=== PATIENT | male | born 1940 | race Hispanic/Latino ===

== ENCOUNTER 2018-03-26 08:19 | Inpatient (IN) | payer MEDICARE, BC ==
[2018-03-26 08:22] VITALS: BMI 22.1
--- NOTE | 2018-03-26 09:08 | ED PDOC ---
Arrival/HPI - General Chief Complaint: Trauma Time Seen by Provider: 03/26/18 09:02 Historian: Patient, Family - History of Present Illness Narrative History of Present Illness (Text): 03/26/18 09:15 Patient is a 77 year old male whose past medical history includes a 10 year history of Parkinson disease, CAD, coronary stent placementx3, and orthostatic hypotension, who presents to the Emergency department with right hip and back pain due to falling last night at 00:00. Patient is present with his granddaughter. Prior to last nights fall he also fell in his kitchen on on his head and causing pain in his right elbow. His family reports that he fell approximately 20 times over the last month. Patient previously took Sinemet and Amantadine, the dosages of which have recently been changed due to poor tolerance of side effects. Patient denies nausea or vomiting at this time. Neurologist: Time/Duration: Other (Last night approximately at midnight) Symptom Course: Unchanged Context: Walking, Home Past Medical History - Provider Review Nursing Documentation Reviewed: Yes - Infectious Disease Hx of Infectious Diseases: None - Tetanus Immunization Tetanus Immunization: Unknown - Cardiac Hx Cardiac Disorders: (hypotension) Hx Congestive Heart Failure: Yes (x3) - Pulmonary Hx Bronchitis: Yes - Neurological Hx Parkinson's Disease: Yes (hands shake) - HEENT Hx HEENT Disorder: (wears eyeglasses) - Hematological/Oncological Hx Blood Transfusions: No Hx Blood Transfusion Reaction: No - Musculoskeletal/Rheumatological Hx Falls: No - Gastrointestinal Hx Gastroesophageal Reflux: Yes - Genitourinary/Gynecological Hx Hematuria: Yes Hx Prostate Problems: Yes (enlarged) Other/Comment: had cysto - Psychiatric Hx Anxiety: Yes Hx Substance Use: No - Surgical History Hx Cardiac Catheterization: Yes (01/2015) Hx Cholecystectomy: Yes Other/Comment: repair of aaa 06/19/2016 - Anesthesia Hx Anesthesia Reactions: No Hx Malignant Hyperthermia: No - Suicidal Assessment Feels Threatened In Home Enviroment: No Family/Social History - Physician Review Nursing Documentation Reviewed: Yes Family/Social History: No Known Family HX Smoking Status: Former Smoker Hx Alcohol Use: No Hx Substance Use: No Hx Substance Use Treatment: No Allergies/Home Meds Allergies/Adverse Reactions: Allergies codeine Allergy (Severe, Verified 02/04/17 15:32) DIFF BREATHING/ SWELLING OF EYES omeprazole [From Prilosec] Allergy (Severe, Verified 02/04/17 15:32) ANAPHYLAXIS omeprazole magnesium [From Prilosec] Allergy (Severe, Verified 02/04/17 15:32) ANAPHYLAXIS Home Medications: Home Meds Medication Instructions Recorded Confirmed Aspirin [Aspirin EC] 81 mg PO QAM 06/12/16 02/04/17 Carbidopa/Levodopa [Sinemet Cr 1 each PO 5XD 06/12/16 02/04/17 25-100 Tablet] Lorazepam [Ativan] 2 mg PO HS 06/12/16 02/04/17 Metoprolol Tartrate 25 mg PO BID 06/12/16 02/04/17 Rabeprazole Sodium [Aciphex] 20 mg PO BID 06/12/16 02/04/17 Review of Systems - Physician Review All systems were reviewed & negative as marked: Yes - Review of Systems Constitutional: absent: Fevers Musculoskeletal: Back Pain Physical Exam - Physical Exam Narrative Physical Exam (Text): 03/26/18 09:08 Constitutional: No acute distress. Head: Normocephalic. Atraumatic. Eyes: PERRL. ENT: Moist mucous membranes. Neck: Supple. Cardiovascular: Regular rate. Chest: No tenderness. Respiratory: Clear to auscultation bilaterally. GI: Soft. Nontender. Nondistended. Back: No CVA tenderness. Musculoskeletal: No tenderness or swelling of extremities. right elbow hematoma Skin: No rash. Neurologic: Alert, no focal deficit.positive cogwheel rigidity, resting tremor. Vital Signs Temp Pulse Resp BP Pulse Ox 03/26/18 10:05 63 16 111/66 95 03/26/18 08:19 98.7 F 60 18 107/69 95 Temperature: Afebrile Blood Pressure: Normal Pulse: Regular Respiratory Rate: Normal Appearance: Positive for: Well-Appearing Mental Status: Positive for: Alert and Oriented X 3 Medical Decision Making ED Course and Treatment: 03/26/18 09:08 Impression: Patient is a 77 year old male who fell yesterday. Differential Diagnosis included but are not limited to: Contusion vs. Fracture. Plan: ----Tylenol --hip/pelvis X-ray --elbow X-ray -- Reassess and disposition Prior Visits: Notes and results from previous visits were reviewed. Progress Notes: Dictator : Garrett Quintero MD Oncology Physician Assistant : Dry Cleaning Attendant : Garrett Quintero MD Approver2 : Report Date : 03/26/2018 10:56:59 My Comment : PROCEDURE: Right Hip and pelvis Radiographs. HISTORY: fall COMPARISON: None. FINDINGS: BONES: Normal. No fracture. JOINTS: Normal. SOFT TISSUES: Normal. OTHER FINDINGS: None. IMPRESSION: Negative study Creator : Garrett Quintero MD Dictator : Garrett Quintero MD Dry Cleaning Attendant : Garrett Quintero MD Report Date : 03/26/2018 10:56:24 My Comment : PROCEDURE: Radiographs of the right elbow. HISTORY: fall COMPARISON: No prior. FINDINGS: BONES: Normal. No fracture. JOINTS: Normal. No osteoarthritis. SOFT TISSUES: Normal. JOINT EFFUSION: None. OTHER FINDINGS: None. IMPRESSION: Unremarkable radiographs of the right elbow. Creator : Garrett Quintero MD Dry Cleaning Attendant : Garrett Quintero MD Report Date : 03/26/2018 11:52:40 My Comment : HISTORY: frequent falls COMPARISON: 02/10/2015 FINDINGS: LUNGS: There is a patchy chronic infiltrate in the left lower lobe PLEURA: No significant pleural effusion identified, no pneumothorax apparent. CARDIOVASCULAR: Normal. OSSEOUS STRUCTURES: No significant abnormalities. VISUALIZED UPPER ABDOMEN: Normal. OTHER FINDINGS: None. IMPRESSION: Patchy chronic infiltrate in the left lower lobe 03/26/18 10:[address] Chambers, who is aware and recommended patient be admitted to his PMD and evaluated by PT and likely short term rehab as patient is unable to ambulate, is unsafe to be discharged home. 03/26/18 12:10 Case discussed with , who is aware and agrees with the plan to admit patient to his service. - Lab Interpretations Lab Results: 03/26/18 11:20 03/26/18 11:20 Lab Results 03/26/18 11:20: Sodium 140, Potassium 4.5, Chloride 106, Carbon Dioxide 29, Anion Gap 10, BUN 39 H, Creatinine 1.3, Est GFR ( Amer) > 60, Est GFR ( Non-Af Amer) 53, Random Glucose 98, Calcium 9.0, Total Bilirubin 0.5, AST 29, ALT 34, Alkaline Phosphatase 101, Total Protein 7.2, Albumin 3.6, Globulin 3.6, Albumin/Globulin Ratio 1.0 L 03/26/18 11:20: WBC 9.0 D, RBC 4.02, Hgb 11.9 L, Hct 36.7 L, MCV 91.3, MCH 29.6 , MCHC 32.4, RDW 14.6 H, Plt Count 217, MPV 9.9, Gran % 69.9 H, Lymph % (Auto) 18.2 L, [place] % (Auto) 10.5 H, Eos % (Auto) 1.1 L, Baso % (Auto) 0.3, Gran # 6.30 , Lymph # (Auto) 1.6, [place] # (Auto) 1.0 H, Eos # (Auto) 0.1, Baso # (Auto) 0.03 - RAD Interpretation Radiology Orders: 03/26/18 09:02 ELBOW RIGHT 3 VIEWS ROUTINE [RAD] Stat HIP MIN 2V W/ PELVIS RT [RAD] Stat 03/26/18 11:07 CHEST PORTABLE [RAD] Stat Finisher Denture: Radiologist - Medication Orders Current Medication Orders: Aspirin (Aspirin Chewable) 81 mg PO DAILY BEE Carbidopa/Levodopa (Sinemet) 1 tab PO 5XD BEE Pantoprazole Sodium (Protonix Ec Tab) 40 mg PO DAILY BEE Discontinued Medications Acetaminophen (Tylenol 325mg Tab) 650 mg PO STAT STA Stop: 03/26/18 09:05 Last Admin: 03/26/18 09:14 Dose: 650 mg MAR Pain/Vitals Document 03/26/18 09:14 SRE (Rec: 03/26/18 09:14 SRE [id number]) Pain Reassessment Is This A Pain ReAssessment? Yes Sleep Is patient sleeping during reassessment? No Presence of Pain Presence of Pain Yes Pain Scale Used Pain Scale Used Numeric Location Pain Location Body Site Back - Scribe Statement The provider has reviewed the documentation as recorded by the Joseluisiblinn Bueno Provider Scribe Attestation: All medical record entries made by the Scribe were at my direction and personally dictated by me. I have reviewed the chart and agree that the record accurately reflects my personal performance of the history, physical exam, medical decision making, and the department course for this patient. I have also personally directed, reviewed, and agree with the discharge instructions and disposition. Disposition/Present on Arrival - Present on Arrival Any Indicators Present on Arrival: No History of DVT/PE: No History of Uncontrolled Diabetes: No Urinary Catheter: No History of Decub. Ulcer: No History Surgical Site Infection Following: None - Disposition Have Diagnosis and Disposition been Completed?: Yes Diagnosis: Decreased ambulation status, Parkinson disease Disposition: HOSPITALIZED Disposition Time: 10:59 Patient Plan: Observation Condition: FAIR
--- NOTE | 2018-03-26 10:58 | RAD ---
PROCEDURE: Radiographs of the right elbow. HISTORY: fall COMPARISON: No prior. FINDINGS: BONES: Normal. No fracture. JOINTS: Normal. No osteoarthritis. SOFT TISSUES: Normal. JOINT EFFUSION: None. OTHER FINDINGS: None. IMPRESSION: Unremarkable radiographs of the right elbow.
--- NOTE | 2018-03-26 10:58 | RAD ---
PROCEDURE: Right Hip and pelvis Radiographs. HISTORY: fall COMPARISON: None. FINDINGS: BONES: Normal. No fracture. JOINTS: Normal. SOFT TISSUES: Normal. OTHER FINDINGS: None. IMPRESSION: Negative study
[2018-03-26 11:32] LABS: BASO # 0.03 K/mm3 (0.0-2.0); BASO % 0.3 % (0.0-3.0); EOS # 0.1 (0.0-0.7); EOS % 1.1 % (1.5-5.0); GRAN # 6.3 (1.4-6.5); GRAN % 69.9 % (50.0-68.0); HEMOGLOBIN 11.9 g/dL (14.0-18.0); LYMPH # 1.6 (1.2-3.4); LYMPH % 18.2 % (22.0-35.0); MEAN CELL VOLUME 91.3 fl (80.0-105.0); MEAN CORPUSCULAR HEMOGLOBIN 29.6 pg (25.0-35.0); MEAN CORPUSCULAR HGB CONC 32.4 g/dl (31.0-37.0); MEAN PLATELET VOLUME 9.9 fl (7.0-11.0); MONO % 10.5 % (1.0-6.0); RBC 4.02 10^6/uL (3.5-6.1); RED CELL DISTRIBUTION WIDTH 14.6 % (11.5-14.5)
[2018-03-26 11:40] LABS: ALBUMIN 3.6 g/dL (3.0-4.8); ALT/SGPT 34 U/L (7-56); AST/SGOT 29 U/L (17-59); BLOOD UREA NITROGEN 39 mg/dL (7-21); GFR AFRICAN-AMERICAN > 60; GFR NON-AFRICAN AMERICAN 53
--- NOTE | 2018-03-26 11:54 | RAD ---
HISTORY: frequent falls COMPARISON: 02/10/2015 FINDINGS: LUNGS: There is a patchy chronic infiltrate in the left lower lobe PLEURA: No significant pleural effusion identified, no pneumothorax apparent. CARDIOVASCULAR: Normal. OSSEOUS STRUCTURES: No significant abnormalities. VISUALIZED UPPER ABDOMEN: Normal. OTHER FINDINGS: None. IMPRESSION: Patchy chronic infiltrate in the left lower lobe
--- NOTE | 2018-03-26 16:38 | HP ---
HISTORY OF PRESENT ILLNESS: The patient is a 77 year old man with a past medical history of advanced Parkinson disease who was brought to [facility] for evaluation of recurrent mechanical falls. The patient has been clinically deteriorating due to his underlying Parkinson disease and has been experiencing more frequent falls at home. As such he was brought to the ED for PT evaluation and possible placement. Upon arrival to the ED he was found to be afebrile and hemodynamically stable. X-rays of the pelvis and elbow demonstrated no fracture or dislocation and the patient was subsequently admitted to the general medical [facility] for PT evaluation. PAST MEDICAL HISTORY: As per HPI, also CAD s/p PCI with stent placement, lumbosacral radiculopathy secondary to spinal stenosis, AAA, anxiety disorder and BPH. PAST SURGICAL HISTORY: Cholecystectomy, AAA repair and lumbosacral spinal surgery with hardware placement. ALLERGIES: Codein and Omeprazole. MEDICATIONS: Aspirin 81 mg p.o. daily, Metoprolol 25 mg p.o. b.i.d., Aciphex 20 mg p.o. daily , Ativan 1 mg p.o. at bedtime and Sinemet 25/100 mg five times per day. FAMILY HISTORY: Noncontributory. SOCIAL HISTORY: The patient reports a former 24-erta-cpwr smoking history but quit four years ago. He denies alcohol use or illicit drug abuse. REVIEW OF SYSTEMS: A 14-point review of systems is negative except as per HPI. PHYSICAL EXAMINATION: VITAL SIGNS: Temperature 98.7, pulse 63, blood pressure 111/66, respiratory rate 16, oxygen saturation 95% on room air. GENERAL: No apparent distress. HEENT: Normocephalic, atraumatic. PERRL. EOMI. No scleral icterus. No conjunctival pallor. Mucous membranes are dry. NECK: No JVD. LUNGS: Clear to auscultation. CARDIOVASCULAR: Regular rate and rhythm. Normal S1 and S2. ABDOMEN: Normoactive bowel sounds. Soft, nontender, nondistended. EXTREMITIES: No edema. No joint deformities. Full range of motion. NEUROLOGIC: Awake, alert, and oriented x 3. No focal motor deficits. LABORATORY DATA: CBC reviewed and unremarkable. CMP reviewed and unremarkable. IMAGING STUDIES: 1. Chest x-ray demonstrates a chronic patchy infiltrate to the left lower lobe. 2. X-ray of the right hip demonstrates no evidence of fracture or dislocation. 3. X-ray of the right elbow demonstrates no acute pathology. ASSESSMENT: The patient is a 77 year old man with a past medical history of advanced Parkinson disease who presented s/p mechanical fall and who was admitted for PT evaluation given multiple recurrent falls at home and possible placement. PLAN: 1. Parkinson disease. We will resume the patient's Sinemet and Amantadine. PT has been consulted for further evaluation and recommendations. Continue with fall precautions. 2. CAD s/p PCI with stent placement. Resume Aspirin 81 mg p.o. daily. We will hold Metoprolol given the patient's borderline low blood pressure in the setting of recurrent falls. 3. BPH. 4. GERD. 5. Anxiety. 6. Lumbosacral radiculopathy secondary to spinal stenosis. 7. Prophylaxis. GI prophylaxis not indicated as patient is eating. We will start Venodynes for DVT prophylaxis. CODE STATUS: Full code. Torey Lucero MD [facility]
[2018-03-26] MEDS ORDERED: Magnesium Citrate Oral SOL (300 ml) PO ONE (16:57)
--- NOTE | 2018-03-26 19:11 | CARD ---
APPROVED REPORT EKG Measurement Heart [id number] <Conclusion> Normal sinus rhythm Left axis deviation Inferior infarct, age undetermined Abnormal ECG
[2018-03-26] MEDS ORDERED: Pneumococcal 23-Valent Vaccine IM ONE (19:17)
[2018-03-27] MEDS ORDERED: Pantoprazole 40 mg EC Tab PO SCH (10:00)
[2018-03-27] MEDS: Pantoprazole 40 mg EC Tab PO SCH (10:11)
--- NOTE | 2018-03-27 10:20 | PN ---
SUBJECTIVE: The patient was seen and examined at bedside on the general medical [facility]. No acute events overnight. He remains afebrile, hemodynamically stable and is pending PT evaluation for his presentation with recurrent mechanical falls. PHYSICAL EXAMINATION VITAL SIGNS: Temperature 98, pulse 75, blood pressure 136/90, respiratory rate 23, oxygen saturation 96% on room air. GENERAL: No apparent distress. HEENT: PERRL, EOMI. No scleral icterus. No conjunctival pallor. NECK: No JVD. No bruits. LUNGS: Clear to auscultation. CARDIOVASCULAR: Regular rate and rhythm. Normal S1 and S2. ABDOMEN: Normoactive bowel sounds. Soft, nontender. Nondistended. EXTREMITIES: No edema. NEUROLOGIC: Awake, alert and oriented x 3. No focal motor deficits. LABORATORY DATA: No new labs. ASSESSMENT: The patient is a 77 year old man with a past medical history of advanced Parkinson disease who presented s/p mechanical fall and who was admitted for PT evaluation given multiple recurrent falls at home. PLAN: 1. Parkinson disease with recurrent falls. The patient has been resumed on his outpatient medications. PT evaluation pending. Continue with fall precautions. 2. CAD s/p PCI with stent placement. Continue Aspirin 81 mg p.o. daily. Metoprolol remains on hold. We will continue to monitor hemodynamics and resume antihypertensives as needed. 3. BPH. 4. GERD. 5. Anxiety. 6. Lumbosacral radiculopathy secondary to spinal stenosis. 7. Prophylaxis. GI prophylaxis not indicated as the patient is eating. Continue Venodyne for DVT prophylaxis. CODE STATUS: Full code. Torey Lucero MD IFT[facility]KHAR
[2018-03-27 15:23] VITALS: RESP 20
[2018-03-28 08:55] VITALS: BP 110/82; PULSE 83; TEMP 98.4; O2SAT 96
[2018-03-28] MEDS: Pantoprazole 40 mg EC Tab PO SCH (10:38)
--- NOTE | 2018-03-28 12:25 | DS ---
LOCATION: The patient is in room 571, bed 1. SUBJECTIVE: There have been no acute events overnight and the patient has nonspecific complaints. PHYSICAL EXAMINATION: VITAL SIGNS: Temperature is 98.4, pulse rate of 83, blood pressure 110/82, respiratory rate of 20 with an O2 saturation of 96% on room air. HEENT: Unremarkable. NECK: Supple with full range of motion. LUNGS: Clear. HEART: With a regular rate and rhythm. ABDOMEN: Benign. NEUROLOGIC: The patient has a resting tremor, but there were no focal motor deficits. Discussed the patient with Service Tech/Welder and he will hopefully be transferred to a rehab facility tomorrow morning. Jose Lucero MD
--- NOTE | 2018-03-28 13:42 | CP.PCM.CON ---
History of Present Illness - History of Present Illness History of Present Illness: 77 yr old male who was diagnosed with Parkinsons Disease about 12 years ago, initially presenting with tremor and bradykinesia many years ago, first started on sinemet 25/100 by . Over the years, has been on initially sinemet 25/100 tid, titrated up to 5 times a day, at which point he became toxic, and it was reduced again. He has never tried any other medications , but has been following him for several months and recommended he be referred for DBT. He was admitted to [facility] because of increasing bradykinesia. PMH/PSH: as per chart FH/SH: , has several children. Acetylene Torch Operator is his grandaughter All: nkda on exam: aaox3. PERRL. Hypomimia, hypophonia. Masked facies. Bilteral tremor, left worse than right. +cogwheel rigidity. Severe bradykinesia, no sensory findings. motor: normal. gait not tested. Past Patient History - Infectious Disease Hx of Infectious Diseases: None - Tetanus Immunizations Tetanus Immunization: Unknown - Past Social History Smoking Status: Former Smoker - CARDIAC Hx Cardiac Disorders: Yes (hypotension,AAA REPAIR,ANGINA,CAD) Hx Congestive Heart Failure: Yes (x3) - PULMONARY Hx Respiratory Disorders: Yes (SMOKED 2 PPD QUIT.) Hx Bronchitis: Yes - NEUROLOGICAL Hx Neurological Disorder: Yes Hx Parkinson's Disease: Yes (hands shake) - HEENT Hx HEENT Problems: Yes (wears eyeglasses) - RENAL Hx Chronic Kidney Disease: No - ENDOCRINE/METABOLIC Hx Endocrine Disorders: No - HEMATOLOGICAL/ONCOLOGICAL Hx Blood Disorders: No - INTEGUMENTARY Hx Dermatological Problems: Yes Other/Comment: 03-26-18 MULTIPLE BRUISING FROM FALLS.SKIN ABRASION.RIGHT ELBOW,HIP ,HAND. - MUSCULOSKELETAL/RHEUMATOLOGICAL Hx Musculoskeletal Disorders: Yes Hx Falls: Yes (multiple falls 20x in a month.February2018) - GASTROINTESTINAL Hx Gastrointestinal Disorders: Yes (CONSTIPATION) Hx Gastroesophageal Reflux: Yes - GENITOURINARY/GYNECOLOGICAL Hx Genitourinary Disorders: Yes Hx Hematuria: Yes Hx Prostate Problems: Yes (enlarged) Other/Comment: had cysto - PSYCHIATRIC Hx Psychophysiologic Disorder: Yes Hx Anxiety: Yes Hx Substance Use: No - SURGICAL HISTORY Hx Surgeries: Yes (CARDIAC CATH WITH 3 HEART STENTS,CYSTOSCOPY) Hx Cardiac Catheterization: Yes (01/2015) Hx Cholecystectomy: Yes Hx Coronary Stent: Yes (X3) Other/Comment: repair of aaa 06/19/2016 ,SPINAL SX H/O - ANESTHESIA Hx Anesthesia Reactions: No Hx Malignant Hyperthermia: No Meds Allergies/Adverse Reactions: Allergies Allergy/AdvReac Type Severity Reaction Status Date / Time codeine Allergy Severe DIFF Verified 03/26/18 13:39 BREATHING/ SWELLING OF EYES omeprazole [From Prilosec] Allergy Severe ANAPHYLAXIS Verified 03/26/18 13:39 omeprazole magnesium Allergy Severe ANAPHYLAXIS Verified 03/26/18 13:39 [From Prilosec] - Medications Medications: Current Medications Amantadine HCl (Amantadine 100 Mg Cap) 100 mg PO DAILY [facility] Last Admin: 03/28/18 10:38 Dose: 100 mg Aspirin (Aspirin Chewable) 81 mg PO DAILY [facility] Last Admin: 03/28/18 10:38 Dose: 81 mg Carbidopa/Levodopa (Sinemet) 1 tab PO 5XD [facility] Last Admin: 03/28/18 10:38 Dose: 1 tab Lorazepam (Ativan) 2 mg PO HS PRN; Protocol PRN Reason: Insomnia Last Admin: 03/27/18 21:48 Dose: 2 mg Pantoprazole Sodium (Protonix Ec Tab) 40 mg PO DAILY [facility] Last Admin: 03/28/18 10:38 Dose: 40 mg Results - Vital Signs Recent Vital Signs: Last Vital Signs Temp 98.4 F 03/28/18 07:00 Pulse 83 03/28/18 07:00 Resp 20 03/28/18 07:00 BP 110/82 03/28/18 07:00 Pulse Ox 96 03/28/18 07:00 - Labs Result Diagrams: 03/26/18 11:20 03/26/18 11:20 - Imaging and Cardiology CT scan - head Status: Image reviewed by me, Report reviewed by me Assessment & Plan - Assessment and Plan (Free Text) Assessment: Assessment: 77 yr old male with Severe parkinsons and now worsening symptoms. We will attemp to optimize his regimen. Plan: 1. discontinue sinemet 5 times daily. 2. increase sinemet to 50/200 CR at 7 am' sinemet regular release 50/100 at 1:30 pm sinemet regular release 25/100 at 3 pm 3. Seroquel 25 mg qhs for agitation/hallucinations. 4. Physical therapy. 5. Outpatient DBS referral. 6. please allow pt to start sinemet and be evaluated for rehab before discharge. Thank you
[2018-03-28] MEDS ORDERED: Carbidopa/Levodopa 50/200 CR PO ONE (14:30)
--- NOTE | 2018-03-28 18:41 | CON ---
DATE: 03/28/2018 INDICATIONS: Coronary artery disease, Parkinson disease, frequent falls. HISTORY OF PRESENT ILLNESS: This is a 77-year-old man who is well known to me. He was admitted on the 2nd with frequent falls. He reports multiple mechanical falls due to Parkinson disease. Most recent fall, he suffered head, hip and back trauma. He has no chest pain, shortness of breath, palpitations, orthopnea, PND, syncope, loss of consciousness, seizure activity, palpitations, fever, chills, cough, sputum production or hemoptysis. He has no abdominal pain, nausea, vomiting, diarrhea, constipation or melena. PAST MEDICAL HISTORY: Complex. He has severe Parkinson disease and has been deteriorating. He has orthostatic hypotension, multiple falls at home. He has a history of coronary artery disease with coronary intervention several years ago. He has had abdominal aortic aneurysm repaired. He is a former heavy smoker. He has spinal stenosis, chronic back pain and a history of spine surgery. He has had gallbladder surgery. There is a history of BPH and GERD. There is no history of myocardial infarction, rheumatic fever, congestive heart failure, arrhythmia, stroke, TIA, diabetes or gout. MEDICATIONS: At the time of admission include AcipHex, amantadine, aspirin, Ativan, metoprolol. ALLERGIES: HE NOTES ALLERGIES TO CODEINE AND OMEPRAZOLE. SOCIAL HISTORY: He lives at home with his . He is a former smoker. He does not drink alcohol significantly. He is [place] from [place]. FAMILY HISTORY: Noncontributory. REVIEW OF SYSTEMS: A 10-point review of systems otherwise unremarkable except as noted above. PHYSICAL EXAMINATION: GENERAL: He is a well-developed elderly man lying in bed on telemetry in no acute distress. VITAL SIGNS: Notable for sinus rhythm to sinus bradycardia, 74-80 beats per minute, afebrile, blood pressure 118/82, respirations 20, O2 sat 94%-95% on room air. HEENT: Reveals no neck vein distention, thyromegaly, or carotid bruits. Mucous membranes are moist. Conjunctivae are pink. NECK: Supple. LUNGS: Lung butt clear. HEART: Revealed normal first and second heart sounds. Soft systolic murmur along the left sternal border. PMI not palpable. ABDOMEN: Soft. Bowel sounds are present. No mass, organomegaly, tenderness, rebound, guarding, CVA tenderness or palpable abdominal aortic aneurysm. EXTREMITIES: Revealed no cyanosis, clubbing or edema. NEUROLOGICAL: He is awake, alert and oriented. PSYCHIATRIC: Normal as to mood and affect. Voice low volume. SKIN: Warm and dry. No rash or cellulitis. LABORATORY AND IMAGING DATA: EKG demonstrates normal sinus rhythm at 61 beats per minute, no acute changes. Right elbow x-ray is unremarkable. Pelvis x-ray is a negative study. A portable chest x-ray reveals a patchy chronic infiltrate of the left lower lobe. CBC is notable for hemoglobin of 11.9, hematocrit 36.7, white count normal, platelet count normal. Electrolytes, BUN, creatinine, blood sugar basically unremarkable. LFTs unremarkable. IMPRESSION: Rommel Nichols is a 77-year-old man with sever Parkinson disease who had multiple mechanical falls at home. I do not elicit a history of syncope, vertigo, palpitations. There has been no chest pain or shortness of breath. I will check postural vital signs. Metoprolol is being held because of initial bradycardia. He is getting aspirin, Protonix,carbidopa/levodopa and amantadine. He has been evaluated by Office Helper [employer]erical. He is high risk for falls. He is being seen by Neurology as well. I will review his old records. His cardiac status seems stable at this time. I will follow along with you as needed. Do not hesitate to call if there are any questions. Valdez Schroeder MD [facility]ENTER[facility]ih[facility]
[2018-03-29] MEDS ORDERED: Carbidopa/Levodopa 50/200 CR PO SCH ×2 (09:00→10:00)
== END 2018-03-28 23:05 | DRG 57 ==
LOC: ED 08:19 → ERH 12:10 → 5RSO 13:57
PROVIDERS: ADMIT Student in an Organized Health Care Education/Training Program; ATTEND Student in an Organized Health Care Education/Training Program
DX: G20 Parkinson's disease (principal); R29.6 Repeated falls; I25.10 Atherosclerotic heart disease of native coronary artery without angina pectoris; N40.0 Benign prostatic hyperplasia without lower urinary tract symptoms; M54.17 Radiculopathy, lumbosacral region; F41.9 Anxiety disorder, unspecified; K21.9 Gastro-esophageal reflux disease without esophagitis; M48.07 Spinal stenosis, lumbosacral region; Z86.79 Personal history of other diseases of the circulatory system; Z90.49 Acquired absence of other specified parts of digestive tract; Z95.5 Presence of coronary angioplasty implant and graft; Z87.891 Personal history of nicotine dependence

== ENCOUNTER 2018-10-17 17:12 | Emergency (ER) | payer MEDICARE, BC ==
[2018-10-17 17:12] VITALS: BMI 22.1
[2018-10-17 17:24] VITALS: RESP 18; TEMP 97.4
--- NOTE | 2018-10-17 17:55 | ED PDOC ---
Arrival/HPI - General Chief Complaint: Male Genitourinary Time Seen by Provider: 10/17/18 17:19 Historian: Patient, Family - History of Present Illness Narrative History of Present Illness (Text): 10/17/18 17:55 A 78 year old male, whose past medical history includes Parkinson's, CAD with 3 stents, orthostatic hypotension, spinal stenosis and AAA stenosis, presents to the emergency department accompanied by family complaining of urinary retention since last night. Patient reports he has not been able to urinate and has lower abdominal pain with bloating. Patient notes at times he becomes constipated but had a laxative last night which helped his bowel movement. Patient denies any fever, chills, shortness of breath, chest pain, diarrhea, nausea, vomiting, back pain, neck pain, headache, dizziness, or any other complaints. PMD: Dr. Johnson Urologist: Dr. Sarmiento Time/Duration: 24 hours (last night) Symptom Onset: Gradual Symptom Course: Unchanged Activities at Onset: Light Context: Home Past Medical History - Provider Review Nursing Documentation Reviewed: Yes - Infectious Disease Hx of Infectious Diseases: None - Tetanus Immunization Tetanus Immunization: Unknown - Cardiac Hx Cardiac Disorders: Yes (hypotension,AAA REPAIR,ANGINA,CAD) Hx Congestive Heart Failure: Yes (x3) - Pulmonary Hx Respiratory Disorders: Yes (SMOKED 2 PPD QUIT.) Hx Bronchitis: Yes - Neurological Hx Neurological Disorder: Yes Hx Parkinson's Disease: Yes (hands shake) - HEENT Hx HEENT Disorder: Yes (wears eyeglasses) - Renal Hx Renal Disorder: No - Endocrine/Metabolic Hx Endocrine Disorders: No - Hematological/Oncological Hx Blood Disorders: No - Integumentary Hx Dermatological Disorder: Yes Other/Comment: 03-26-18 MULTIPLE BRUISING FROM FALLS.SKIN ABRASION.RIGHT ELBOW,HIP,HAND. - Musculoskeletal/Rheumatological Hx Musculoskeletal Disorders: Yes Hx Falls: Yes (multiple falls 20x in a month.February2018) - Gastrointestinal Hx Gastrointestinal Disorders: Yes (CONSTIPATION) Hx Gastroesophageal Reflux: Yes - Genitourinary/Gynecological Hx Genitourinary Disorders: Yes Hx Hematuria: Yes Hx Prostate Problems: Yes (enlarged) Other/Comment: had cysto - Psychiatric Hx Psychophysiologic Disorder: Yes Hx Anxiety: Yes Hx Substance Use: No - Surgical History Hx Cardiac Catheterization: Yes (01/2015) Hx Cholecystectomy: Yes Hx Coronary Stent: Yes (X3) Other/Comment: repair of aaa 06/19/2016 ,SPINAL SX H/O - Anesthesia Hx Anesthesia Reactions: No Hx Malignant Hyperthermia: No - Suicidal Assessment Feels Threatened In Home Enviroment: No Family/Social History - Physician Review Nursing Documentation Reviewed: Yes Family/Social History: No Known Family HX Smoking Status: Former Smoker Hx Alcohol Use: No Hx Substance Use: No Hx Substance Use Treatment: No Allergies/Home Meds Allergies/Adverse Reactions: Allergies codeine Allergy (Severe, Verified 10/17/18 17:22) DIFF BREATHING/ SWELLING OF EYES omeprazole [From Prilosec] Allergy (Severe, Verified 10/17/18 17:22) ANAPHYLAXIS omeprazole magnesium [From Prilosec] Allergy (Severe, Verified 10/17/18 17:22) ANAPHYLAXIS Home Medications: Home Meds Medication Instructions Recorded Confirmed Amantadine [Amantadine HCl] 100 mg PO DAILY 03/26/18 10/17/18 Carbidopa/Levodopa [Sinemet 10-100 1 tab PO BID 10/17/18 10/17/18 mg Tablet] Quetiapine Fumarate [Seroquel] 50 mg PO DAILY 10/17/18 10/17/18 Review of Systems - Physician Review All systems were reviewed & negative as marked: Yes - Review of Systems Constitutional: absent: Fevers, Night Sweats Respiratory: absent: SOB Cardiovascular: absent: Chest Pain Gastrointestinal: Abdominal Pain (+lower abdominal pain), Other (bloating). absent: Diarrhea, Nausea, Vomiting Genitourinary Male: Urinary Output Changes (urinary retention) Musculoskeletal: absent: Back Pain, Neck Pain Neurological: absent: Headache, Dizziness Physical Exam Vital Signs Reviewed: Yes Vital Signs Temp Pulse Resp BP Pulse Ox 10/17/18 17:20 97.4 F L 92 H 18 131/73 98 Temperature: Hypothermic Blood Pressure: Normal Pulse: Tachycardic Respiratory Rate: Normal Appearance: Positive for: Well-Appearing, Non-Toxic Pain Distress: None Mental Status: Positive for: Alert and Oriented X 3 - Systems Exam Head: Present: Atraumatic, Normocephalic Pupils: Present: PERRL Extroacular Muscles: Present: EOMI Conjunctiva: Present: Normal Mouth: Present: Moist Mucous Membranes Neck: Present: Normal Range of Motion Respiratory/Chest: Present: Clear to Auscultation, Good Air Exchange. No: Respiratory Distress, Accessory Muscle Use Cardiovascular: Present: Regular Rate and Rhythm, Normal S1, S2. No: Murmurs Abdomen: Present: Normal Bowel Sounds, Other (+bladder full and tender). No: Hernias Back: Present: Normal Inspection Upper Extremity: Present: Normal Inspection. No: Cyanosis, Edema Lower Extremity: Present: Normal Inspection. No: Edema Neurological: Present: GCS=15, CN II-XII Intact, Speech Normal, Other (+tremors in hands) Skin: Present: Warm, Dry, Normal Color. No: Rashes Psychiatric: Present: Alert, Oriented x 3, Normal Insight, Normal Concentration Medical Decision Making ED Course and Treatment: 10/17/18 17:55 Impression: 78 year old male presenting to the emergency complaining of urinary retention. Differential Diagnosis included but are not limited to: Urinary retention and Constipation Plan: -- CMP -- Lipase -- CBC -- Urine Culture -- Durham -- Xray of abdomen -- Urinalysis -- Reassess and disposition Prior Visits: Notes and results from previous visits were reviewed. Progress Notes: 10/17/18 18:41 After durham was placed by RN, patient had pain resolve. Abdomen soft and not tender. Durham drained 1 liter yellow urine. Xray pending. 10/17/18 19:36 Xray negative for obstruction. + constipation. Rectal exam shows brown stool and I was able to remove some with a digit exam. Fleet enema ordered. Case discussed with Dr. Lubin who states patient can be discharged with the durham and then follow up with him on Saturday. He does not need to be given any antibiotics. UA is negative. CBC WBC elevated and elevated creatinine is due to urinary retention. Dr. Lubin and Dr. Johnson will f/u. Dr. Johnson agrees with plan for discharge home with her follow up and Dr. Lubin as well. - RAD Interpretation Radiology Orders: 10/17/18 17:49 ABD 2 VIEWS (FLAT/UP OR DECUB) [RAD] Stat - Scribe Statement The provider has reviewed the documentation as recorded by the Jus Marcos All medical record entries made by the Scribe were at my direction and personally dictated by me. I have reviewed the chart and agree that the record accurately reflects my personal performance of the history, physical exam, medical decision making, and the department course for this patient. I have also personally directed, reviewed, and agree with the discharge instructions and disposition. Disposition/Present on Arrival - Present on Arrival Any Indicators Present on Arrival: No History of DVT/PE: No History of Uncontrolled Diabetes: No Urinary Catheter: No History of Decub. Ulcer: No History Surgical Site Infection Following: None - Disposition Have Diagnosis and Disposition been Completed?: Yes Diagnosis: Urinary retention, Constipation Disposition: HOME/ ROUTINE Disposition Time: 19:38 Condition: IMPROVED Discharge Instructions (ExitCare): Constipation in Adults, Urinary Retention Additional Instructions: YANCY RODAS, thank you for letting us take care of you today. Your provider was Ravi Delgado DO and you were treated for Urinary Retention, Constipation. The emergency medical care you received today was directed at your acute symptoms. If you were prescribed any medication, please fill it and take as directed. It may take several days for your symptoms to resolve. Return to the Emergency Department if your symptoms worsen, do not improve, or if you have any other problems. Please contact your doctor or call one of the physicians/clinics you have been referred to that are listed on the Patient Visit Information form that is included in your discharge packet. Bring any paperwork you were given at discharge with you along with any medications you are taking to your follow up visit. Our treatment cannot replace ongoing medical care by a primary care provider outside of the emergency department. Thank you for allowing the [facility] team to be part of your care today. If you had an X-Ray or CT scan: A Radiologist will review the ED reading if any change in treatment is needed we will contact you. If you had a blood, urine, or wound culture: It will take several days for the results, if any change in treatment is needed we will contact you. If you had an STI test: It will take 48 hours for the results. Please call after 1 week if you have not heard back. Referrals: Nisha Johnson MD [Staff Provider] - Follow up with primary Adi Lubin MD [Staff Provider] - Follow up with primary Forms: [employer] ([place])
[2018-10-17 18:22] LABS: BASO # 0.02 K/mm3 (0.0-2.0); BASO % 0.1 % (0.0-3.0); EOS % 0.1 % (1.5-5.0); GRAN # 12.57 (1.4-6.5); GRAN % 85.7 % (50.0-68.0); HEMOGLOBIN 11.9 g/dL (14.0-18.0); LYMPH % 6.6 % (22.0-35.0); MEAN CELL VOLUME 89.9 fl (80.0-105.0); MEAN CORPUSCULAR HEMOGLOBIN 28.7 pg (25.0-35.0); MEAN CORPUSCULAR HGB CONC 31.9 g/dl (31.0-37.0); MEAN PLATELET VOLUME 9.8 fl (7.0-11.0); MONO # 1.1 (0.1-0.6); MONO % 7.5 % (1.0-6.0); RBC 4.15 10^6/uL (3.5-6.1); RED CELL DISTRIBUTION WIDTH 14.7 % (11.5-14.5); WHITE BLOOD COUNT 14.7 10^3/uL (4.5-11.0)
[2018-10-17 18:24] LABS: URINE BILIRUBIN NEGATIVE (NEGATIVE); URINE BLOOD NEGATIVE (NEGATIVE); URINE GLUCOSE (UA) NEGATIVE (NEGATIVE); URINE LEUKOCYTE ESTERASE NEGATIVE Leu/uL (NEGATIVE); URINE PROTEIN 30 mg/dL (<30 mg/dL); URINE UROBILINOGEN 0.2 E.U./dL (<1 E.U./dL)
[2018-10-17 18:31] LABS: URINE APPEARANCE CLEAR (CLEAR); URINE COLOR YELLOW (YELLOW)
[2018-10-17 18:33] LABS: ALB/GLOB RATIO 0.9 (1.1-1.8); ALBUMIN 3.7 g/dL (3.0-4.8)
[2018-10-17 18:33] LABS: URINE BACTERIA TRACE (NEG); URINE HYALINE CAST 0 - 2 /hpf; URINE WBC NEGATIVE /hpf (0-6)
[2018-10-17 20:45] VITALS: BP 130/85; PULSE 89; O2SAT 100
--- NOTE | 2018-10-18 11:00 | RAD ---
Date of service: 10/17/2018 HISTORY: constipation COMPARISON: CT abdomen and pelvis without IV contrast performed 02/04/17 FINDINGS: No visible pleural effusion or pneumothorax at the lung bases. BOWEL: Moderate diffuse constipation. Nonobstructive bowel gas pattern. No definite free air. BONES: Degenerative changes. OTHER FINDINGS: Aortic and bilateral common iliac artery stents. Lumbar fusion hardware. Cholecystectomy clips. IMPRESSION: Moderate diffuse constipation.
== END 2018-10-17 20:22 | disposition home or self-care (01) ==
LOC: ED 17:12
DX: R33.9 Retention of urine, unspecified (principal); K59.00 Constipation, unspecified; I25.10 Atherosclerotic heart disease of native coronary artery without angina pectoris; I50.9 Heart failure, unspecified; I95.1 Orthostatic hypotension; N40.1 Benign prostatic hyperplasia with lower urinary tract symptoms; G20 Parkinson's disease; Z95.5 Presence of coronary angioplasty implant and graft; Z87.891 Personal history of nicotine dependence

== ENCOUNTER 2018-10-20 11:55 | Inpatient (IN) | payer MEDICARE, BC ==
[2018-10-20 11:59] VITALS: BMI 20.9
[2018-10-20] MEDS ORDERED: Iohexol 240 (50 ml) ONE (12:20)
[2018-10-20 12:40] LABS: BASO # 0.02 K/mm3 (0.0-2.0); BASO % 0.2 % (0.0-3.0); EOS # 0.1 (0.0-0.7); EOS % 1.4 % (1.5-5.0); GRAN # 6.36 (1.4-6.5); GRAN % 70.7 % (50.0-68.0); HEMOGLOBIN 11.9 g/dL (14.0-18.0); LYMPH # 1.9 (1.2-3.4); LYMPH % 21.3 % (22.0-35.0); MEAN CORPUSCULAR HEMOGLOBIN 28.4 pg (25.0-35.0); MEAN CORPUSCULAR HGB CONC 31.6 g/dl (31.0-37.0); MEAN PLATELET VOLUME 9.7 fl (7.0-11.0); MONO # 0.6 (0.1-0.6); MONO % 6.4 % (1.0-6.0); RBC 4.19 10^6/uL (3.5-6.1); RED CELL DISTRIBUTION WIDTH 14.7 % (11.5-14.5)
--- NOTE | 2018-10-20 12:49 | ED PDOC ---
Arrival/HPI - General Chief Complaint: GI Problem Time Seen by Provider: 10/20/18 12:05 Historian: Patient - History of Present Illness Narrative History of Present Illness (Text): 10/20/18 12:10 78 year old male, with past medical history of Parkinson's, CAD with 3 stents, orthostatic hypotension, spinal stenosis and AAA stenosis, presents to the Emergency department accompanied by family for evaluation of suprapubic abdomina l pain since 3 days. As per family, patient was recently seen in the Emergency department 3 days ago for urinary retention and was discharged home after durham catheter placement. Patient reports onset of symptoms since discharge, unimproved after taking laxatives and motrin at home, prompting him to return to the ED for medical evaluation. As per , patient had a normal bowel movement 3 weeks ago but had little stool output 3 days ago. Patient denies any other associated somatic complaints. Patient denies any fevers, chills, headache, dizziness, chest pain, shortness of breath, dyspnea on exertion, cough, nausea, vomiting, urinary symptoms, back pain, neck pain, or any other complaints. PMD: Dr. Johnson Urologist: Dr. Sarmiento Time/Duration: < week Symptom Onset: Gradual Symptom Course: Unchanged Quality: Aching Activities at Onset: Light Context: Home Past Medical History - Provider Review Nursing Documentation Reviewed: Yes - Infectious Disease Hx of Infectious Diseases: None - Tetanus Immunization Tetanus Immunization: Unknown - Cardiac Hx Cardiac Disorders: Yes (hypotension,AAA REPAIR,ANGINA,CAD) Hx Congestive Heart Failure: Yes (x3) - Pulmonary Hx Respiratory Disorders: Yes (SMOKED 2 PPD QUIT.) Hx Bronchitis: Yes - Neurological Hx Neurological Disorder: Yes Hx Parkinson's Disease: Yes (hands shake) - HEENT Hx HEENT Disorder: Yes (wears eyeglasses) - Renal Hx Renal Disorder: No - Endocrine/Metabolic Hx Endocrine Disorders: No - Hematological/Oncological Hx Blood Disorders: No - Integumentary Hx Dermatological Disorder: Yes Other/Comment: 03-26-18 MULTIPLE BRUISING FROM FALLS.SKIN ABRASION.RIGHT ELBOW,HIP,HAND. - Musculoskeletal/Rheumatological Hx Musculoskeletal Disorders: Yes Hx Falls: Yes (multiple falls 20x in a month.February2018) - Gastrointestinal Hx Gastrointestinal Disorders: Yes (CONSTIPATION) Hx Gastroesophageal Reflux: Yes - Genitourinary/Gynecological Hx Genitourinary Disorders: Yes Hx Hematuria: Yes Hx Prostate Problems: Yes (enlarged) Other/Comment: had cysto - Psychiatric Hx Psychophysiologic Disorder: Yes Hx Anxiety: Yes Hx Substance Use: No - Surgical History Hx Cardiac Catheterization: Yes (01/2015) Hx Cholecystectomy: Yes Hx Coronary Stent: Yes (X3) Other/Comment: repair of aaa 06/19/2016 ,SPINAL SX H/O - Anesthesia Hx Anesthesia Reactions: No Hx Malignant Hyperthermia: No - Suicidal Assessment Feels Threatened In Home Enviroment: No Family/Social History - Physician Review Nursing Documentation Reviewed: Yes Family/Social History: Unknown Family HX Smoking Status: Former Smoker Hx Alcohol Use: No Hx Substance Use: No Hx Substance Use Treatment: No Allergies/Home Meds Allergies/Adverse Reactions: Allergies codeine Allergy (Severe, Verified 10/17/18 17:22) DIFF BREATHING/ SWELLING OF EYES omeprazole [From Prilosec] Allergy (Severe, Verified 10/17/18 17:22) ANAPHYLAXIS omeprazole magnesium [From Prilosec] Allergy (Severe, Verified 10/17/18 17:22) ANAPHYLAXIS Home Medications: Home Meds Medication Instructions Recorded Confirmed Amantadine [Amantadine HCl] 100 mg PO DAILY 03/26/18 10/17/18 Carbidopa/Levodopa [Sinemet 10-100 1 tab PO BID 10/17/18 10/17/18 mg Tablet] Quetiapine Fumarate [Seroquel] 50 mg PO DAILY 10/17/18 10/17/18 Review of Systems - Physician Review All systems were reviewed & negative as marked: Yes - Review of Systems Constitutional: absent: Fevers Respiratory: absent: SOB, Cough Cardiovascular: absent: Chest Pain Gastrointestinal: Abdominal Pain, Constipation. absent: Diarrhea, Nausea, Vomiting Genitourinary Male: absent: Dysuria, Urinary Output Changes Musculoskeletal: absent: Back Pain, Neck Pain Skin: absent: Rash Neurological: absent: Headache, Dizziness Physical Exam Vital Signs Reviewed: Yes Vital Signs Temp Pulse Resp BP Pulse Ox 10/20/18 11:59 97.4 F L 78 18 109/76 99 Temperature: Afebrile Blood Pressure: Normal Pulse: Regular Respiratory Rate: Normal Appearance: Positive for: Well-Appearing, Non-Toxic, Comfortable Pain Distress: Mild Mental Status: Positive for: Alert and Oriented X 3 - Systems Exam Head: Present: Atraumatic, Normocephalic Pupils: Present: PERRL Extroacular Muscles: Present: EOMI Conjunctiva: Present: Normal Respiratory/Chest: Present: Clear to Auscultation, Good Air Exchange. No: Respiratory Distress, Accessory Muscle Use Cardiovascular: Present: Regular Rate and Rhythm, Normal S1, S2. No: Murmurs Abdomen: Present: Tenderness (left sided abdominal tenderness with guarding ), Guarding. No: Distention, Peritoneal Signs, Rebound Genitourinary Male: Present: Other (Durham catheter in place, apears clean and dry, no redness, no swelling. Urine appears yellow in color. ) Back: Present: Normal Inspection Upper Extremity: Present: Normal Inspection. No: Cyanosis, Edema Lower Extremity: Present: Normal Inspection. No: Edema Neurological: Present: GCS=15, CN II-XII Intact, Speech Normal Skin: Present: Warm, Dry, Normal Color. No: Rashes Psychiatric: Present: Alert, Oriented x 3, Normal Insight, Normal Concentration Medical Decision Making ED Course and Treatment: 10/20/18 12:10 Impression: 78 year old male presents to the Emergency department complaining of abdominal pain. Differential Diagnosis included but are not limited to: Abdominal pain r/o obstruction Plan: -- CT of Abdomen/Pelvis -- EKG -- Labs -- Urinalysis -- Reassess and disposition Prior Visits: Notes and results from previous visits were reviewed. Progress Notes: 10/20/18 12:10 EKG: Ordered, reviewed, and independently interpreted the EKG, shows NSR @ 73bpm, no acute ST/T wave changes. 10/20/18 15:04 CT of Abdomen/Pelvis reviewed by radiologist, shows: Evidence of fecal impaction. 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 10/20/18 17:[address] was looked at and compared to previous images by Dr. Hernández, Vascular Surgeon, nail professional at [facility]. He states there is not much of a change from previous imaging done on this patient. He does not believe this patient needs to be transferred to [facility] [place] for Vascular. He recommends discussing the case with Dr. Halle Lan. I discussed the case with Dr. Halle Lan who states that if the size of the endograft leak has not changed then he can be admitted here. He will discuss the case with Dr. Johnson. I discussed the case with Dr. Johnson who agrees to admit the patient to her service. 10/20/18 18:10 Fleet enema ordered. Discussed case with Dr. Burgos, who is aware and states he will see patient in the morning. 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 All medical record entries made by the Scribe were at my direction and personally dictated by me. I have reviewed the chart and agree that the record accurately reflects my personal performance of the history, physical exam, medical decision making, and the department course for this patient. I have also personally directed, reviewed, and agree with the discharge instructions and disposition. Disposition/Present on Arrival - Present on Arrival Any Indicators Present on Arrival: No History of DVT/PE: No History of Uncontrolled Diabetes: No Urinary Catheter: No History of Decub. Ulcer: No History Surgical Site Infection Following: None - Disposition Have Diagnosis and Disposition been Completed?: Yes Diagnosis: Constipation Disposition: HOSPITALIZED Disposition Time: 18:04 Patient Problems: Current Active Problems Problem Status Onset Constipation Acute Condition: FAIR
[2018-10-20 12:51] LABS: INR 1.11; PARTIAL THROMBOPLASTIN TIME 26.4 Seconds (25.1-36.5); PROTHROMBIN TIME 12.8 SECONDS (9.4-12.5)
[2018-10-20 12:55] LABS: ALB/GLOB RATIO 0.9 (1.1-1.8); ALBUMIN 3.5 g/dL (3.0-4.8); ALT/SGPT 12 U/L (7-56); AMYLASE 84 U/L (35-125); AST/SGOT 20 U/L (17-59); BLOOD UREA NITROGEN 34 mg/dL (7-21); CALCIUM 8.9 mg/dL (8.4-10.5); GFR NON-AFRICAN AMERICAN 53; LIPASE 32 U/L (23-300)
[2018-10-20] MEDS ORDERED: Iohexol 350 MG/100 ML VIAL ONE (13:56)
[2018-10-20 14:18] LABS: PH,URINE 6.5 (4.7-8.0); URINE BILIRUBIN NEGATIVE (NEGATIVE); URINE BLOOD SMALL (NEGATIVE); URINE GLUCOSE (UA) NEGATIVE (NEGATIVE); URINE LEUKOCYTE ESTERASE MODERATE Leu/uL (NEGATIVE); URINE PROTEIN NEGATIVE mg/dL (<30 mg/dL); URINE UROBILINOGEN 0.2 E.U./dL (<1 E.U./dL)
[2018-10-20 14:20] LABS: URINE APPEARANCE SL CLOUDY (CLEAR); URINE COLOR YELLOW (YELLOW)
[2018-10-20 14:25] LABS: URINE RBC 0 - 2 /hpf (0-2)
--- NOTE | 2018-10-20 14:52 | CT ---
Date of service: 10/20/2018 PROCEDURE: CT Abdomen and Pelvis with contrast HISTORY: abd pain h/o constipation COMPARISON: 02/04/2017 TECHNIQUE: Contrast dose: Radiation dose: Total exam DLP = 431.58 mGy-cm. This CT exam was performed using one or more of the following dose reduction techniques: Automated exposure control, adjustment of the mA and/or kV according to patient size, and/or use of iterative reconstruction technique. FINDINGS: LOWER THORAX: Bibasilar fibrotic changes with calcified pleural plaques consistent with versus with pleural disease. LIVER: Unremarkable. No gross lesion or ductal dilatation. GALLBLADDER AND BILE DUCTS: Cholecystectomy. PANCREAS: Unremarkable. No gross lesion or ductal dilatation. SPLEEN: Unremarkable. ADRENALS: Unremarkable. No mass. KIDNEYS AND URETERS: 5.6 centimeter right renal cyst. No hydronephrosis. No solid mass. VASCULATURE: 6.8 x 5.9 centimeter abdominal aortic aneurysm status post endograft repair. Evidence of a type 2 endograft leak with contrast noted within the lumen. No aortic atherosclerotic calcification or mural plaque present. BOWEL: Abundant stool noted throughout the colon and rectum in particular with slight distention of the rectum compatible with fecal impaction. APPENDIX: Normal appendix. PERITONEUM: Unremarkable. No free fluid. No free air. LYMPH NODES: Unremarkable. No enlarged lymph nodes. BLADDER: Verduzco catheter in place. REPRODUCTIVE: Unremarkable. BONES: No acute fracture. OTHER FINDINGS: None. IMPRESSION: Evidence of fecal impaction. 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
[2018-10-20] MEDS ORDERED: Morphine 2 mg/ml ISec IVP STA (15:22)
--- NOTE | 2018-10-20 19:21 | CARD ---
APPROVED REPORT Date of service: 10/20/2018 EKG Measurement Heart [id number] <Conclusion> Poor data quality, interpretation may be adversely affected Normal sinus rhythm Left anterior fascicular block Abnormal ECG
--- NOTE | 2018-10-20 22:06 | HP ---
DATE OF EXAM: 10/20/2018 HISTORY OF PRESENT ILLNESS: Patient is 78-year-old who was seen on Saturday by me. Patient's family brought him to the office, because he has not been peeing. He is having suprapubic discomfort, and he did not have bowel movement for almost a week. So, I directed him to come to emergency room, where he had catheter placed and 1 L of urine was drained. After that, he was given enema. He had little bowel movement. He was sent home on oral laxative and stool softener. According to who was by the bedside, he was given MiraLAX, Dulcolax, and lactulose with no significant improvement. His pain got worse, so they brought him back to emergency room for further evaluation. Has no history of fever or chills. No history of nausea or vomiting, but poor appetite. He has difficulty walking and ambulating. According to family, he was under care of Dr. Chambers, but they were having difficulty monitoring his Parkinson's medications, so they recently seen a neurologist who is somebody newer who has been monitoring the medications. PAST MEDICAL HISTORY: Also significant for: 1. Parkinson disease. 2. Status post angioplasty. 3. Lumbosacral radiculopathy. 4. History of spinal stenosis. 5. History of aortic aneurysm. 6. Anxiety disorder. 7. Benign prostatic hypertrophy. SURGICAL HISTORY: Significant for: 1. AAA repair. 2. Disk surgery in lumbosacral spinal stenosis and had hardware placed. 3. Status post cholecystectomy. MEDICATIONS AT HOME: 1. He is on Seroquel 50 mg at bedtime. 2. He is on Sinemet 3 times a day. 3. He is on amantadine 100 mg daily. 4. He is on lactulose 30 mg twice a day. 5. Protonix 40 daily. 6. Multivitamin. ALLERGIES: HE IS ALLERGIC TO OMEPRAZOLE AND CODEINE. SOCIAL HISTORY: He used to be very heavy smoker, 2 packs per day, for 60 years and denies drinking. PHYSICAL EXAMINATION GENERAL: He looks uncomfortable. VITAL SIGNS: He is afebrile, pulse 82, respirations 16, blood pressure 137/92. LUNGS: Bilateral fair airflow. No rhonchi or crackle. HEART: S1, S2 audible. ABDOMEN: Soft. Left lower quadrant and suprapubic discomfort. NEUROLOGICAL: He is awake and alert, able to communicate. EXTREMITIES: Bilateral legs, no edema. LABORATORY EXAM: WBC is 9.0, hemoglobin 11.9, hematocrit 37.7, platelets 212,000. PT 12.8, INR 1.11. Chemistry: Sodium 140, potassium 4.4, chloride 107, CO2 of 27, BUN 34, creatinine 1.3, blood sugar of 90. LFTs are within normal limits. Urine shows moderate leukocyte. Had CT scan of the abdomen and pelvis done that shows fecal impaction, and he has type 2 endograft leak and abdominal aortic aneurysm, which measured 6.8 and 12.9 cm. ASSESSMENT: 1. Fecal impaction. 2. Status post urine retention. 3. Parkinson disease. 4. History of abdominal aortic aneurysm repair. 5. Status post cholecystectomy. 6. History of spinal stenosis. PLAN: We will start patient on his usual medications. We will start him on laxative. GI consult by Dr. Burgos has been requested. We will follow up his electrolytes in a.m. Nisha Johnson MD
--- NOTE | 2018-10-21 00:28 | PN ---
DATE: 10/20/2018 Mr. Nichols had an Ovation bifurcated stent graft, placed in 05/2016, for an abdominal aortic aneurysm. He has had two non-contrast CT scans since stent graft placement. Today, he underwent a contrast exam which demonstrates a type 2 endoleak anteriorly at the level of the HUBER. The aneurysmal sac has subtlely increased 2 mm over the past 2 years. This is primarily in a transverse dimension. No evidence of rupture is appreciated. Type 2 endoleaks are typically followed conservatively unless the aneurysmal sac is increasing. Mr. Nichols is a borderline case given the minimal increase in size. I assume he has not received CT scans with contrast as yearly followup given his chronic kidney disease and mildly elevated creatinine. His current admission is for urinary retention and constipation. I will order a Duplex ultrasound to see how well the endoleak is visualized with Duplex imaging. Various embolization techniques are possible with a type 2 endoleak, but I am not sure intervention is necessary at this point in time. He should have closed interval followup with CT scans at 6-month intervals (preferably with IV contrast, but can be done noncontrast if renal insufficiency remains an issue). Hayder Lan MD MTDD
[2018-10-21] MEDS: metroNIDAZOLE IV 500 mg/100 ml 500 MG/100 ML BAG IVPB SCH ×4 (05:02→21:07)
--- NOTE | 2018-10-21 05:06 | CON ---
DATE: 10/20/2018 IDENTIFYING INFORMATION: The patient is an 78-year-old white male who was admitted because of difficulty in urinating. HISTORY OF PRESENT ILLNESS: The patient who is expressing suprapubic discomfort, had also not had a bowel movement for almost a week. He was then directed to the emergency room by his PMD, Dr. Johnson, and had a catheter placed with drainage of urine and then enema (which was associated with sparse bowel movement). After being sent home his pain got worse and he was brought back to the emergency room. The patient has had Parkinson's disease for approximately 10 years and has been under the care of a neurologist, Dr. Chambers (according to the notes), according to the patient this is a relatively new neurologist, with his previous neurologist having disappeared for reasons uncertain. PAST MEDICAL HISTORY: Includes an angioplasty number of years ago, lumbosacral radiculopathy, history of spinal stenosis, history of an aortic aneurysm, BPH and reportedly an anxiety disorder. He has also had a cholecystectomy in the past. At home, he is maintained on Seroquel 50 mg. I am told that the patient has been seeing people that are not there. The patient informs me that he did have a several-month period (approximately 1/2 year) where he was having these visual hallucinations, but they have stopped approximately 1 month ago. The patient is presently on Risperdal 0.25 mg, Sinemet CR t.i.d., amantadine 100 mg daily. The course of his medication regimen is unclear to me as in the hospital he is getting Risperdal, at home he is listed as Seroquel. Given the fragile state of a parkinsonian patient, it may be better to maintain the patient on Seroquel which is a "weaker" dopamine antagonist in contrast to Risperdal which is a higher potency dopamine antagonist. More recently new medications similar to tetrabenazine (pimavanserin (Nuplazid)) has become available but is not in the hospital pharmacy. The patient does not have a psychiatric history. He is [place]. 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 He lives at home with his of 57 years. She has been treated for both lung and breast cancer in the past. The couple have two children, one who lives across the street (a son) and the daughter who lives in [place]. They seem to be involved with parents. He denies a familial psychiatric history. At this time, the patient appears to be alert, oriented, pleasant, tremulous, asymptomatic. I will switch the patient back from Risperdal to Seroquel and monitor with you. We will discuss further with you. Thank you for this interesting consultation. We will continue to monitor with you. Hector Choudhary MD/ PhD
[2018-10-21 06:50] LABS: ALB/GLOB RATIO 0.9 (1.1-1.8); ALBUMIN 3.5 g/dL (3.0-4.8); ALT/SGPT 24 U/L (7-56); AST/SGOT 24 U/L (17-59); BLOOD UREA NITROGEN 26 mg/dL (7-21); CALCIUM 8.7 mg/dL (8.4-10.5); GFR NON-AFRICAN AMERICAN 58
[2018-10-21 07:05] LABS: BASO # 0.02 K/mm3 (0.0-2.0); BASO % 0.2 % (0.0-3.0); EOS # 0.1 (0.0-0.7); EOS % 0.6 % (1.5-5.0); GRAN # 8.17 (1.4-6.5); GRAN % 80.6 % (50.0-68.0); LYMPH # 1.1 (1.2-3.4); LYMPH % 10.9 % (22.0-35.0); MEAN CELL VOLUME 89.7 fl (80.0-105.0); MEAN CORPUSCULAR HEMOGLOBIN 28.6 pg (25.0-35.0); MEAN CORPUSCULAR HGB CONC 31.9 g/dl (31.0-37.0); MEAN PLATELET VOLUME 9.7 fl (7.0-11.0); MONO # 0.8 (0.1-0.6); MONO % 7.7 % (1.0-6.0); RBC 4.19 10^6/uL (3.5-6.1); RED CELL DISTRIBUTION WIDTH 14.4 % (11.5-14.5); WHITE BLOOD COUNT 10.1 10^3/uL (4.5-11.0)
[2018-10-21] MEDS ORDERED: Magnesium Citrate Oral SOL (300 ml) PO ONE (08:01)
[2018-10-21] MEDS: levoFLOXacin 500 mg in D5W 500 MG/100 ML BAG IVPB SCH (09:47)
[2018-10-21] MEDS ORDERED: Carbidopa/Levodopa 25/100 CR PO SCH (10:00)
[2018-10-21] MEDS: Dextrose 5%/0.45% NS 1,000 ML IV SCH (12:47)
--- NOTE | 2018-10-21 12:54 | CP.PCM.PN ---
Subjective - Date & Time of Evaluation Date of Evaluation: 10/21/18 Time of Evaluation: 09:00 - Subjective Subjective: Clinical Care Coordination Note Seen and examined 78 y/o M, arrived to ED with c/o suprapubic abdominal pain for 3 days. Patient recently seen in ED 3 days ago for urinary retention and was discharged home with durham catheter placement. Patient states s/s did not improved after taking laxatives and motrin at home. As per ED documentation, patient has not had a normal bowel movement in 3 weeks as per family. PMHx Parkinson's, CAD with 3 stents, Emphysema, orthostatic hypotension, spinal stenosis, BPH, renal calci, renal insufficiency and AAA with repair. In ED CT abdomen/pelvis revealed severe constipation with fecal impaction and AAA 6.8 x 5.9 with type II endograft leak s/p endograft repair. Patient is admitted for constipation with fecal impaction and AAA with type II endograft leak. Patient denies WATT, dizziness, fever, chills, SOB, cough, hemoptysis, chest pain, abdominal pain resolved post large BM today, N/V/D, hematemesis or rectal bleeding. Objective - Vital Signs/Intake and Output Vital Signs (last 24 hours): Temp Pulse Resp BP Pulse Ox 97.6 F 75 20 116/76 94 L 10/21/18 08:23 10/21/18 08:23 10/21/18 08:23 10/21/18 08:23 10/21/18 08:23 Intake and Output: 10/21/18 10/21/18 06:59 18:59 Output Total 400 Balance -400 - Medications Medications: Current Medications Acetaminophen (Tylenol 325mg Tab) 650 mg PO Q6H PRN PRN Reason: Fever >100.4 F Amantadine HCl (Amantadine 100 Mg Cap) 100 mg PO DAILY [facility] Last Admin: 10/21/18 09:46 Dose: 100 mg Carbidopa/Levodopa (Sinemet Cr) 1 tab PO 0800,1400,1900 [facility] Hydroxyzine Pamoate (Vistaril) 25 mg PO HS [facility]; Protocol Last Admin: 10/20/18 21:23 Dose: 25 mg Metronidazole (Flagyl) 500 mg in 100 mls @ 100 mls/hr IVPB Q8 [facility]; Protocol Last Admin: 10/21/18 05:02 Dose: 100 mls/hr Levofloxacin/Dextrose (Levaquin 500mg) 500 mg in 100 mls @ 100 mls/hr IVPB DAILY [facility]; Protocol Last Admin: 10/21/18 09:47 Dose: 100 mls/hr Dextrose/Sodium Chloride (Dextrose 5%/0.45% Ns 1000 Ml) 1,000 mls @ 75 mls/hr IV .[id number] [facility] Lactulose (Enulose) 20 gm PO HS [facility] Last Admin: 10/20/18 21:21 Dose: 20 gm Pantoprazole Sodium (Protonix Ec Tab) 40 mg PO 0630 [facility] Quetiapine Fumarate (Seroquel) 25 mg PO HS [facility]; Protocol Quetiapine Fumarate (Seroquel) 25 mg PO HS [facility]; Protocol Last Admin: 10/21/18 00:00 Dose: 25 mg - Labs Labs: 10/21/18 06:00 10/21/18 06:00 PT 12.8 SECONDS (9.4-12.5) H 10/20/18 12:28 INR 1.11 10/20/18 12:28 APTT 26.4 Seconds (25.1-36.5) 10/20/18 12:28 - Constitutional Appears: Non-toxic, No Acute Distress, Chronically Ill - Head Exam Head Exam: ATRAUMATIC, NORMOCEPHALIC - Eye Exam Eye Exam: EOMI, Normal appearance, PERRL Pupil Exam: NORMAL ACCOMODATION - Neck Exam Neck Exam: Full ROM, Normal Inspection - Respiratory Exam Respiratory Exam: Clear to Ausculation Bilateral, Prolonged Expiratory Phase, NORMAL BREATHING PATTERN - Cardiovascular Exam Cardiovascular Exam: REGULAR RHYTHM, +S1, +S2 - GI/Abdominal Exam GI & Abdominal Exam: Distended, Tenderness, Normal Bowel Sounds Additional comments: bilateral lower quadrant initially has resolved since large bowel movement - Rectal Exam Rectal Exam: Deferred - Extremities Exam Extremities Exam: Full ROM, Normal Capillary Refill - Neurological Exam Neurological Exam: Alert, Awake, CN II-XII Intact, Oriented x3 Neuro motor strength exam: Left Upper Extremity: 5, Right Upper Extremity: 5, Left Lower Extremity: 4, Right Lower Extremity: 4 Additional comments: patient with generalized weakness difficulty with ambulation. - Psychiatric Exam Psychiatric exam: Normal Affect, Normal Mood - Skin Skin Exam: Dry, Normal Color, Warm Assessment and Plan - Assessment and Plan (Free Text) Assessment: A: Constipation resolved UTI urinary retention AAA type II endograft leak Generalized weakness Plan: P: bowel regiment as per GI constipation resolved urinary retention awaiting consult from urology Levaquin treatment of UTI urine culture and sensitivities pending Medication as per MAR Aorta, IVC, Iliac duplex completed pending result Generalized weakness awaiting PT evaluation with recommendation
[2018-10-21] MEDS: Carbidopa/Levodopa 25/100 CR PO SCH ×2 (13:25→19:56)
--- NOTE | 2018-10-21 13:50 | US ---
PROCEDURE: 1. Duplex ultrasound of the abdominal aorta. HISTORY: Abdominal aortic aneurysm. Status post stent graft placement. Evaluate type 2 endoleak PHYSICIAN(S): Hayder Lan MD. FINDINGS: The abdominal aortic aneurysm is present with a patent bifurcated stent graft. The type 2 endoleak anteriorly at the level of the HUBER is well seen on the duplex imaging. Both iliac limbs are visualized and patent IMPRESSION: 1. The type 2 endoleak anteriorly at the level of the HUBER is fairly well visualized on duplex imaging. One treatment option would include direct puncture of the endoleak under ultrasound guidance with subsequent coil placement. 2. Patent bifurcated abdominal aortic stent graft.
--- NOTE | 2018-10-21 14:54 | CP.PCM.CON ---
<Lea Garcia - Last Filed: 10/21/18 15:26> History of Present Illness - History of Present Illness History of Present Illness: Gastroenterology Fellow/PGY6 Consult Note 78 year old male with PMH of Parkinson's, AAA s/p repair with type II endoleak, and CAD s/p stents presenting with abdominal pain. Patient notes recent ER visit for urine retention resolved after durham insertion. Abdominal xray noted moderate constipation with failed attempt of laxative use at home. Patient notes gradual recurrence of lower abdominal pain leading to ER presentation. CT A/P confirmed fecal impaction with stool retention. Patient notes last bowel movement three days ago with baseline daily bowel habits prior to this occurrence. Denies nausea, vomiting, hematemesis, diarrhea, melena, hematochezia, or unintentional weight loss. Family History- denies stomach cancer, colon cancer Social History- quit tobacco, denies alcohol or illicit drug use Surgical History- AAA repair with iliac extensions 05/2016, cholecystectomy Review of Systems - Review of Systems Review of Systems: 12-point review of systems negative except for as above Past Patient History - Infectious Disease Hx of Infectious Diseases: None - Tetanus Immunizations Tetanus Immunization: Unknown - Past Social History Smoking Status: Former Smoker - CARDIAC Hx Angina: Yes Hx Congestive Heart Failure: Yes Other/Comment: AAA REPAIR, CAD - PULMONARY Hx Respiratory Disorders: Yes (SMOKED 2 PPD QUIT.) Hx Bronchitis: Yes - NEUROLOGICAL Hx Neurological Disorder: Yes Hx Parkinson's Disease: Yes - HEENT Hx HEENT Problems: Yes (wears eyeglasses) - RENAL Hx Chronic Kidney Disease: No - ENDOCRINE/METABOLIC Hx Endocrine Disorders: No - HEMATOLOGICAL/ONCOLOGICAL Hx Blood Disorders: No - INTEGUMENTARY Hx Dermatological Problems: Yes Other/Comment: 03-26-18 MULTIPLE BRUISING FROM FALLS.SKIN ABRASION.RIGHT ELBOW,HIP,HAND. - MUSCULOSKELETAL/RHEUMATOLOGICAL Hx Falls: Yes - GASTROINTESTINAL Hx Gastroesophageal Reflux: Yes Other/Comment: CONSTIPATION - GENITOURINARY/GYNECOLOGICAL Hx Genitourinary Disorders: Yes Hx Hematuria: Yes Hx Prostate Problems: Yes (enlarged) Other/Comment: had cysto - PSYCHIATRIC Hx Substance Use: No - SURGICAL HISTORY Hx Surgeries: Yes Hx Cardiac Catheterization: Yes Hx Cholecystectomy: Yes Hx Coronary Stent: Yes Hx Musculoskeletal Surgery: Yes - ANESTHESIA Hx Anesthesia Reactions: No Hx Malignant Hyperthermia: No Meds Allergies/Adverse Reactions: Allergies Allergy/AdvReac Type Severity Reaction Status Date / Time codeine Allergy Severe DIFF Verified 10/20/18 18:54 BREATHING/ SWELLING OF EYES omeprazole [From Prilosec] Allergy Severe ANAPHYLAXIS Verified 10/20/18 18:54 omeprazole magnesium Allergy Severe ANAPHYLAXIS Verified 10/20/18 18:54 [From Prilosec] - Medications Medications: Current Medications Acetaminophen (Tylenol 325mg Tab) 650 mg PO Q6H PRN PRN Reason: Fever >100.4 F Amantadine HCl (Amantadine 100 Mg Cap) 100 mg PO DAILY [facility] Last Admin: 10/21/18 09:46 Dose: 100 mg Carbidopa/Levodopa (Sinemet Cr) 1 tab PO 0800,1400,1900 [facility] Last Admin: 10/21/18 13:25 Dose: 1 tab Hydroxyzine Pamoate (Vistaril) 25 mg PO HS [facility]; Protocol Last Admin: 10/20/18 21:23 Dose: 25 mg Metronidazole (Flagyl) 500 mg in 100 mls @ 100 mls/hr IVPB Q8 [facility]; Protocol Last Admin: 10/21/18 13:02 Dose: 100 mls/hr Levofloxacin/Dextrose (Levaquin 500mg) 500 mg in 100 mls @ 100 mls/hr IVPB DAILY [facility]; Protocol Last Admin: 10/21/18 09:47 Dose: 100 mls/hr Dextrose/Sodium Chloride (Dextrose 5%/0.45% Ns 1000 Ml) 1,000 mls @ 75 mls/hr IV .[id number] [facility] Last Admin: 10/21/18 12:47 Dose: 75 mls/hr Lactulose (Enulose) 20 gm PO HS [facility] Last Admin: 10/20/18 21:21 Dose: 20 gm Pantoprazole Sodium (Protonix Ec Tab) 40 mg PO 0630 [facility] Polyethylene Glycol (Miralax) 17 gm PO BID [facility] Quetiapine Fumarate (Seroquel) 25 mg PO HS [facility]; Protocol Quetiapine Fumarate (Seroquel) 25 mg PO HS [facility]; Protocol Last Admin: 10/21/18 00:00 Dose: 25 mg Physical Exam - Constitutional Appears: Non-toxic, No Acute Distress - Head Exam Head Exam: ATRAUMATIC, NORMOCEPHALIC - Eye Exam Eye Exam: EOMI, PERRL. absent: Scleral icterus Pupil Exam: PERRL. absent: Miosis, Mydriatic - ENT Exam ENT Exam: Mucous Membranes Moist, Normal Oropharynx - Neck Exam Neck exam: Positive for: Normal Inspection - Respiratory Exam Respiratory Exam: Clear to Auscultation Bilateral. absent: Rales, Rhonchi, Wheezes - Cardiovascular Exam Cardiovascular Exam: RRR, +S1, +S2. absent: Gallop, Rubs - GI/Abdominal Exam GI & Abdominal Exam: Normal Bowel Sounds, Soft, Tenderness. absent: Distended, Firm, Guarding, Organomegaly, Rebound, Rigid Additional comments: LLQ tenderness to palpation - Extremities Exam Extremities exam: Positive for: normal inspection. Negative for: pedal edema - Neurological Exam Neurological exam: Alert - Psychiatric Exam Psychiatric exam: Normal Affect, Normal Mood - Skin Skin Exam: Dry, Intact, Normal Color, Warm Results - Vital Signs Recent Vital Signs: Last Vital Signs Temp 97.6 F 10/21/18 08:23 Pulse 75 10/21/18 08:23 Resp 20 10/21/18 08:23 BP 116/76 10/21/18 08:23 Pulse Ox 94 L 10/21/18 08:23 - Labs Result Diagrams: 10/21/18 06:00 10/21/18 06:00 Labs: Laboratory Results - last 24 hr 10/21/18 10/21/18 06:00 06:00 WBC 10.1 RBC 4.19 Hgb 12.0 L Hct 37.6 L MCV 89.7 MCH 28.6 MCHC 31.9 RDW 14.4 Plt Count 249 MPV 9.7 Gran % 80.6 H Lymph % (Auto) 10.9 L [place] % (Auto) 7.7 H Eos % (Auto) 0.6 L Baso % (Auto) 0.2 Gran # 8.17 H Lymph # (Auto) 1.1 L [place] # (Auto) 0.8 H Eos # (Auto) 0.1 Baso # (Auto) 0.02 Sodium 143 Potassium 3.9 Chloride 107 Carbon Dioxide 28 Anion Gap 11 BUN 26 H Creatinine 1.2 Est GFR ( Amer) > 60 Est GFR (Non-Af Amer) 58 Random Glucose 106 Calcium 8.7 Total Bilirubin 0.4 AST 24 ALT 24 Alkaline Phosphatase 137 H Total Protein 7.6 Albumin 3.5 Globulin 4.1 Albumin/Globulin Ratio 0.9 L Assessment & Plan - Assessment and Plan (Free Text) Assessment: 78 year old male with PMH of Parkinson's, AAA s/p repair with type II endoleak, and CAD s/p stents presenting with abdominal pain. Active treatment of severe constipation with CT A/P confirming fecal impaction. Plan: -aggressive bowel regimen -ordered Mg citrate, soap suds enema, and Dulcolax RC once -increase fiber and water intake -continue on Miralax once impaction relieved -advance diet as tolerated -will follow clinical course <Carlton Burgos V - Last Filed: 10/22/18 00:03> Meds - Medications Medications: Current Medications Acetaminophen (Tylenol 325mg Tab) 650 mg PO Q6H PRN PRN Reason: Fever >100.4 F Amantadine HCl (Amantadine 100 Mg Cap) 100 mg PO DAILY [facility] Last Admin: 10/21/18 09:46 Dose: 100 mg Carbidopa/Levodopa (Sinemet Cr) 1 tab PO 0800,1400,1900 [facility] Last Admin: 10/21/18 19:56 Dose: 1 tab Hydroxyzine Pamoate (Vistaril) 25 mg PO HS [facility]; Protocol Last Admin: 10/20/18 21:23 Dose: 25 mg Metronidazole (Flagyl) 500 mg in 100 mls @ 100 mls/hr IVPB Q8 [facility]; Protocol Last Admin: 10/21/18 21:07 Dose: 100 mls/hr Levofloxacin/Dextrose (Levaquin 500mg) 500 mg in 100 mls @ 100 mls/hr IVPB DAILY [facility]; Protocol Last Admin: 10/21/18 09:47 Dose: 100 mls/hr Dextrose/Sodium Chloride (Dextrose 5%/0.45% Ns 1000 Ml) 1,000 mls @ 75 mls/hr IV .[id number] [facility] Last Admin: 10/21/18 12:47 Dose: 75 mls/hr Lactulose (Enulose) 20 gm PO HS [facility] Last Admin: 10/21/18 21:07 Dose: 20 gm Pantoprazole Sodium (Protonix Ec Tab) 40 mg PO 0630 [facility] Polyethylene Glycol (Miralax) 17 gm PO BID [facility] Last Admin: 10/21/18 17:33 Dose: 17 gm Quetiapine Fumarate (Seroquel) 50 mg PO HS [facility]; Protocol Last Admin: 10/21/18 21:07 Dose: 50 mg Quetiapine Fumarate (Seroquel) 25 mg PO DAILY [facility]; Protocol Results - Vital Signs Recent Vital Signs: Last Vital Signs Temp 97.9 F 10/21/18 17:18 Pulse 80 10/21/18 17:18 Resp 19 10/21/18 17:18 BP 141/91 H 10/21/18 17:18 Pulse Ox 94 L 10/21/18 17:18 - Labs Result Diagrams: 10/21/18 06:00 10/21/18 06:00 Labs: Laboratory Results - last 24 hr 10/21/18 10/21/18 06:00 06:00 WBC 10.1 RBC 4.19 Hgb 12.0 L Hct 37.6 L MCV 89.7 MCH 28.6 MCHC 31.9 RDW 14.4 Plt Count 249 MPV 9.7 Gran % 80.6 H Lymph % (Auto) 10.9 L [place] % (Auto) 7.7 H Eos % (Auto) 0.6 L Baso % (Auto) 0.2 Gran # 8.17 H Lymph # (Auto) 1.1 L [place] # (Auto) 0.8 H Eos # (Auto) 0.1 Baso # (Auto) 0.02 Sodium 143 Potassium 3.9 Chloride 107 Carbon Dioxide 28 Anion Gap 11 BUN 26 H Creatinine 1.2 Est GFR ( Amer) > 60 Est GFR (Non-Af Amer) 58 Random Glucose 106 Calcium 8.7 Total Bilirubin 0.4 AST 24 ALT 24 Alkaline Phosphatase 137 H Total Protein 7.6 Albumin 3.5 Globulin 4.1 Albumin/Globulin Ratio 0.9 L Attending/Attestation - Attestation I have personally seen and examined this patient.: Yes I have fully participated in the care of the patient.: Yes I have reviewed all pertinent clinical information: Yes Notes (Text): This is an addendum to GI progress report dictated by the GI Fellow.The patient was seen and examined earlier. Medical records, lab studies, imagings were reviewed. Last 24 hours events reviewed. Agreed with the above treatment plan as outlined in GI Fellow 's notes with the addition of the following 10/22/18 00:03
[2018-10-21] MEDS: POLYETHYLENE GLYCOL 3350 17 GM/Dose PACKET PO SCH (17:33)
--- NOTE | 2018-10-21 23:28 | PN ---
DATE: 10/21/2018 SUBJECTIVE: The patient is 78 years old. Seen and examined. According to nurse, last night he had big bowel movements after he was given soap enema and he was given Dulcolax suppository. He passed hard fecal matter with lot of mucous afterwards. He feels better. He still has left lower quadrant sourness. PHYSICAL EXAMINATION: VITAL SIGNS: He is afebrile, pulse 80, respirations 19, blood pressure 141/91. LUNGS: Bilateral fair airflow. No rhonchi or crackle. HEART: S1 and S2 audible. ABDOMEN: Soft. Slight left lower quadrant palpable discomfort. NEUROLOGICAL: He is awake, alert and oriented, communicative. EXTREMITIES: He has bilateral upper extremity tremors. LABORATORY EXAMINATION: WBC 10.1, hemoglobin 12, hematocrit 37, platelets 249. Chemistries: Sodium 143, potassium 3.9, chloride 107, CO2 of 28, BUN 26, creatinine 1.2, blood sugar of 106. Leucocyte is moderately positive. ASSESSMENT AND PLAN: 1. Status post fecal impaction. 2. Deconditioning, difficulty walking. 3. Parkinson disease. 4. History of hallucinations. PLAN: We will continue the patient on IV antibiotics for another 24 hours. Urine is very concentrated. We will give him IV fluids for 24 hours. We will monitor his electrolytes and will follow up this patient in a.m. Nisha Johnson MD
[2018-10-22] MEDS: Dextrose 5%/0.45% NS 1,000 ML IV SCH (03:03)
[2018-10-22] MEDS: metroNIDAZOLE IV 500 mg/100 ml 500 MG/100 ML BAG IVPB SCH ×3 (05:26→21:43)
[2018-10-22] MEDS: Pantoprazole 40 mg EC Tab PO SCH (05:30)
[2018-10-22 06:10] LABS: BASO # 0.02 K/mm3 (0.0-2.0); BASO % 0.3 % (0.0-3.0); EOS # 0.1 (0.0-0.7); EOS % 1.3 % (1.5-5.0); GRAN # 4.71 (1.4-6.5); HEMOGLOBIN 11.1 g/dL (14.0-18.0); LYMPH # 1.5 (1.2-3.4); LYMPH % 22.3 % (22.0-35.0); MEAN CELL VOLUME 90.5 fl (80.0-105.0); MEAN CORPUSCULAR HEMOGLOBIN 27.8 pg (25.0-35.0); MEAN CORPUSCULAR HGB CONC 30.7 g/dl (31.0-37.0); MEAN PLATELET VOLUME 9.3 fl (7.0-11.0); MONO # 0.6 (0.1-0.6); MONO % 8.1 % (1.0-6.0); RED CELL DISTRIBUTION WIDTH 14.3 % (11.5-14.5); WHITE BLOOD COUNT 6.9 10^3/uL (4.5-11.0)
[2018-10-22 06:41] LABS: ALB/GLOB RATIO 0.9 (1.1-1.8); ALBUMIN 3.2 g/dL (3.0-4.8); CALCIUM 8.6 mg/dL (8.4-10.5)
[2018-10-22] MEDS: Carbidopa/Levodopa 25/100 CR PO SCH ×3 (08:55→18:16)
[2018-10-22] MEDS: POLYETHYLENE GLYCOL 3350 17 GM/Dose PACKET PO SCH (09:23)
[2018-10-22] MEDS: levoFLOXacin 500 mg in D5W 500 MG/100 ML BAG IVPB SCH (09:23)
--- NOTE | 2018-10-22 09:30 | PCM.URO ---
Urology Progress Note - Objective Lab Studies: Reviewed (gu dx: retention gu plans: durham to sd please dont remove durham catheter) Lab Results Last 24 Hours: Laboratory Results - last 24 hr 10/22/18 10/22/18 05:45 05:45 WBC 6.9 D RBC 4.00 Hgb 11.1 L Hct 36.2 L MCV 90.5 MCH 27.8 MCHC 30.7 L RDW 14.3 Plt Count 226 MPV 9.3 Gran % 68.0 Lymph % (Auto) 22.3 [place] % (Auto) 8.1 H Eos % (Auto) 1.3 L Baso % (Auto) 0.3 Gran # 4.71 Lymph # (Auto) 1.5 [place] # (Auto) 0.6 Eos # (Auto) 0.1 Baso # (Auto) 0.02 Sodium 142 Potassium 4.1 Chloride 107 Carbon Dioxide 30 Anion Gap 8 L BUN 21 Creatinine 1.4 Est GFR ( Amer) 59 Est GFR (Non-Af Amer) 49 Random Glucose 101 Calcium 8.6 Total Bilirubin 0.5 AST 27 ALT 13 Alkaline Phosphatase 130 H Total Protein 6.9 Albumin 3.2 Globulin 3.7 Albumin/Globulin Ratio 0.9 L Intake & Output: Intake & Output 10/21/18 10/22/18 10/22/18 18:59 06:59 18:59 Intake Total 1545 1020 Output Total 600 750 Balance 945 270 Intake: IV 525 Left Antecubital 525 Oral 1020 1020 Output: Urine 600 750 Urethral ([place]) 600 750 Other: # Bowel Movements 8 12 Vital Signs: Vital Signs - 24 hr 10/21/18 17:18 Temperature 97.9 F Pulse Rate 80 Respiratory 19 Rate Blood Pressure 141/91 H O2 Sat by Pulse 94 L Oximetry
[2018-10-22 09:47] VITALS: RESP 20
--- NOTE | 2018-10-22 10:29 | CP.PCM.PN ---
Subjective - Date & Time of Evaluation Date of Evaluation: 10/22/18 Time of Evaluation: 08:30 - Subjective Subjective: Clinical Care Coordination Note Seen and examined 78 y/o M, s/p severe constipation associated with suprapubic abdominal pain and urinary retention. 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 Constipation has resolved patient s/p multiple large bowel movements. Patient does c/o some mild bilateral diffuse abdominal tenderness that has improved dramatically s/p defecation. Patient denies WATT, dizziness, fever, chills, SOB, cough, hemoptysis, chest pain, N/V/D, hematemesis or rectal bleeding. Objective - Vital Signs/Intake and Output Vital Signs (last 24 hours): Temp Pulse Resp BP Pulse Ox 97.9 F 71 20 122/83 94 L 10/22/18 07:00 10/22/18 07:00 10/22/18 07:00 10/22/18 07:00 10/22/18 07:00 Intake and Output: 10/22/18 10/22/18 06:59 18:59 Intake Total 1020 Output Total 750 Balance 270 - Medications Medications: Current Medications Acetaminophen (Tylenol 325mg Tab) 650 mg PO Q6H PRN PRN Reason: Fever >100.4 F Amantadine HCl (Amantadine 100 Mg Cap) 100 mg PO DAILY [facility] Last Admin: 10/22/18 09:23 Dose: 100 mg Carbidopa/Levodopa (Sinemet Cr) 1 tab PO 0800,1400,1900 [facility] Last Admin: 10/22/18 08:55 Dose: 1 tab Hydroxyzine Pamoate (Vistaril) 25 mg PO HS [facility]; Protocol Last Admin: 10/20/18 21:23 Dose: 25 mg Metronidazole (Flagyl) 500 mg in 100 mls @ 100 mls/hr IVPB Q8 [facility]; Protocol Last Admin: 10/22/18 05:26 Dose: 100 mls/hr Levofloxacin/Dextrose (Levaquin 500mg) 500 mg in 100 mls @ 100 mls/hr IVPB D AILY [facility]; Protocol Last Admin: 10/22/18 09:23 Dose: 100 mls/hr Dextrose/Sodium Chloride (Dextrose 5%/0.45% Ns 1000 Ml) 1,000 mls @ 75 mls/hr IV .[id number] [facility] Last Admin: 10/22/18 03:03 Dose: 75 mls/hr Pantoprazole Sodium (Protonix Ec Tab) 40 mg PO 0630 [facility] Last Admin: 10/22/18 05:30 Dose: 40 mg Polyethylene Glycol (Miralax) 17 gm PO BID [facility] Last Admin: 10/22/18 09:23 Dose: Not Given Quetiapine Fumarate (Seroquel) 50 mg PO HS [facility]; Protocol Last Admin: 10/21/18 21:07 Dose: 50 mg Quetiapine Fumarate (Seroquel) 25 mg PO DAILY [facility]; Protocol Last Admin: 10/22/18 09:18 Dose: 25 mg Tamsulosin HCl (Flomax) 0.4 mg PO DAILY [facility] Last Admin: 10/22/18 10:01 Dose: 0.4 mg - Labs Labs: 10/22/18 05:45 10/22/18 05:45 PT 12.8 SECONDS (9.4-12.5) H 10/20/18 12:28 INR 1.11 10/20/18 12:28 APTT 26.4 Seconds (25.1-36.5) 10/20/18 12:28 - Constitutional Appears: Non-toxic, No Acute Distress, Chronically Ill - Head Exam Head Exam: ATRAUMATIC, NORMOCEPHALIC - Eye Exam Eye Exam: EOMI, Normal appearance, PERRL Pupil Exam: NORMAL ACCOMODATION - Neck Exam Neck Exam: Full ROM - Respiratory Exam Respiratory Exam: Clear to Ausculation Bilateral, NORMAL BREATHING PATTERN - Cardiovascular Exam Cardiovascular Exam: REGULAR RHYTHM, +S1, +S2 - GI/Abdominal Exam GI & Abdominal Exam: Soft, Tenderness, Normal Bowel Sounds Additional comments: tenderness has dramatically improved s/p defecation patient states he has gone multiple times. - Rectal Exam Rectal Exam: Deferred - Extremities Exam Extremities Exam: Full ROM, Normal Capillary Refill - Neurological Exam Neurological Exam: Alert, Awake, CN II-XII Intact, Oriented x3 Neuro motor strength exam: Left Upper Extremity: 5, Right Upper Extremity: 5, Left Lower Extremity: 4 (generalized weakness difficulty with ambulation), Right Lower Extremity: 4 (generlalized weakness difficulty with ambulation) - Psychiatric Exam Psychiatric exam: Normal Affect, Normal Mood - Skin Skin Exam: Dry, Normal Color, Warm Assessment and Plan - Assessment and Plan (Free Text) Assessment: A: Constipation Urinary retention UTI AAA endoleak Generalized weakness Plan: P: Constipatin resolved bowel regiment as per GI recommendation Urinary Retention voiding trial, durham catheter removed, flomax PO initiated as per recommendations UTI urine culture pending collection will repeat UA Continue Levaquin at this time, will reevaluate for possible PO antibiotics AAA endoleak, Aorta US completed and resulted Dr. Lan following discussion with patient regarding results pending. Generalized weakness, PT recommended TCU Will follow closely CM/SW for discharge planning
--- NOTE | 2018-10-22 13:37 | PN ---
DATE: 10/22/2018 IDENTIFYING INFORMATION: The patient is an 78-year-old white male with hallucinogenic state associated with his Parkinson disease. Chart reviewed and case discussed with nursing. The patient, while pleasant, last p.m. reportedly did have a resurgence of his visual hallucinations; this in the context of his baseline Seroquel administration having been altered upon his admission to the hospital (from the 75 mg daily that he had been taking at home to 25 mg here). This 75 mg has now been re-instituted. The patient is pleasant, alert, soft spoken, denies depression, and does have some insight. His family is reported to be helpful. The patient also receives amantadine 100 mg daily. CBC and differential today showed lowered hemoglobin of 11.1, hematocrit 36.2 (which is the lowest in the 3 days he has been here). A biochemical profile shows a return of BUN to within normal levels, with a glucose elevated. OBJECTIVE: VITAL SIGNS: Blood pressure 122/83, respiratory rate 20, temperature 97.9, pulse 71. Hector Choudhary MD/ PhD
--- NOTE | 2018-10-22 14:42 | PN ---
DATE: 10/22/2018 SUBJECTIVE: The patient is an 78-year-old, seen and examined, doing much better. There is no more abdominal pain, had multiple bowel movements since yesterday. PHYSICAL EXAMINATION VITAL SIGNS: He is afebrile, pulse 71, respirations 20, blood pressure 122/83. LUNGS: Bilateral fair airflow. No rhonchi or crackle. HEART: S1, S2 audible. ABDOMEN: Soft, nontender. No rebound, no guarding. NEUROLOGIC: The patient is awake, alert, oriented. Communicative. LABORATORY DATA: WBC 6.9, hemoglobin 11, hematocrit 36, platelets 226. Chemistry; sodium 142, potassium 4.1, chloride 107, CO2 of 30, BUN 21, creatinine 1.4, blood sugar 120. ASSESSMENT: 1. Status post fecal impaction. 2. Deconditioning and difficulty walking. 3. Parkinson's disease. 4. History of aortic aneurysm repair. 5. Status post urine retention, now has indwelling catheter. PLAN: So, plan is we will hold his laxative for now and make it as needed from tomorrow. Discontinue his IV fluids since his oral intake has improved. Continue him on IV antibiotic for now. Continue him on Sinemet. TCU evaluation has been requested. If accepted, he can be transferred to TCU. Nisha Johnson MD
[2018-10-23] MEDS: metroNIDAZOLE IV 500 mg/100 ml 500 MG/100 ML BAG IVPB SCH ×3 (05:26→21:18)
[2018-10-23] MEDS: Pantoprazole 40 mg EC Tab PO SCH (05:31)
[2018-10-23] MEDS: Carbidopa/Levodopa 25/100 CR PO SCH ×3 (08:38→18:08)
[2018-10-23] MEDS: levoFLOXacin 500 mg in D5W 500 MG/100 ML BAG IVPB SCH (09:15)
[2018-10-23 11:07] LABS: URINE BILIRUBIN NEGATIVE (NEGATIVE); URINE BLOOD SMALL (NEGATIVE); URINE GLUCOSE (UA) NEGATIVE (NEGATIVE); URINE LEUKOCYTE ESTERASE TRACE Leu/uL (NEGATIVE); URINE PROTEIN TRACE mg/dL (<30 mg/dL); URINE UROBILINOGEN 0.2 E.U./dL (<1 E.U./dL)
[2018-10-23 11:11] LABS: URINE APPEARANCE CLEAR (CLEAR); URINE COLOR DARK YELLOW (YELLOW)
[2018-10-23 11:28] LABS: URINE BACTERIA FEW (NEG); URINE EPITHELIAL CELLS 0 - 2 /hpf (0-5)
--- NOTE | 2018-10-23 15:52 | PN ---
DATE: 10/23/2018 SUBJECTIVE: The patient is an 78-year-old, white male, with psychosis associated with Parkinson's disease. He is alert, oriented, tremulous, pleasant. He is not presently having any visual hallucinations or any psychotic ideation. He is status post fecal impaction, deconditioning of difficulty walking (to go to the TCU shortly), history of a aortic aneurysm and indwelling catheter now for urinary retention. His blood sugar today is 91. OBJECTIVE: VITAL SIGNS: Blood pressure 160/94, pulse 81, temperature 97.9, respiratory rate 20. We will continue to monitor with you. The patient seems to be doing well. Hector Choudhary MD/ PhD
[2018-10-23 18:24] VITALS: O2SAT 96
--- NOTE | 2018-10-23 19:38 | PN ---
DATE: 10/23/2018 SUBJECTIVE: The patient is an 78-year-old, seen and examined, much more awake, alert, still has significant tremor. PHYSICAL EXAMINATION: GENERAL: He is awake, alert, oriented, communicative. VITAL SIGNS: He is afebrile. Pulse 81, respirations 20, blood pressure 139/89. LUNGS: Bilateral fair airflow. No rhonchi or crackles. HEART: S1 and S2 audible. ABDOMEN: Soft, nontender. No rebound. No guarding. NEUROLOGICAL: The patient is awake, alert, oriented, communicative. Significant intention tremor. GENITOURINARY: He has Verduzco catheter removed. He was able to void multiple times and still has . LABORATORY DATA: Blood sugar is 91. ASSESSMENT: 1. Status post fecal impaction. 2. Uncontrolled tremor secondary to Parkinson's disease. 4. Unstable gait. 5. History of hallucination; I am not sure if it is because of his Parkinson's or the part of dementia or combination. 6. Episode of urinary retention, now voiding fine. 7. History of aortic aneurysm repair. 8. Deconditioning, difficulty walking. PLAN: The patient is being evaluated by TCU team. If accepted, can be transferred to TCU. In the meantime, we will keep him on stool softener. He is currently on metronidazole, Flomax, and Levaquin, giving a total of 5 days. He is on amantadine and Sinemet. We will follow up this patient. Nisha Johnson MD
[2018-10-24] MEDS: metroNIDAZOLE IV 500 mg/100 ml 500 MG/100 ML BAG IVPB SCH (05:12)
[2018-10-24] MEDS: Pantoprazole 40 mg EC Tab PO SCH ×2 (05:20→06:24)
[2018-10-24 08:17] VITALS: BP 153/94; PULSE 72; TEMP 97.3
[2018-10-24] MEDS: Carbidopa/Levodopa 25/100 CR PO SCH (09:36)
--- NOTE | 2018-10-24 23:12 | DS ---
HISTORY OF PRESENT ILLNESS: The patient is an 78-year-old, seen and examined, seems to be doing little better and more alert. PHYSICAL EXAMINATION: VITAL SIGNS: He is afebrile, pulse 72, respirations 20, and blood pressure 153/94. LUNGS: Bilateral fair airflow. No rhonchi or crackle. HEART: S1 and S2 audible. ABDOMEN: Soft and nontender. No rebound. No guarding. NEUROLOGICAL: The patient is awake, alert, oriented, communicative and able to move all extremity. Has intention tremor. The patient states that he did not have a bowel movements for the last two days. LABORATORY DATA: Blood sugar is 91. ASSESSMENT AND PLAN: 1. Status post urine retention. 2. Status post fecal impaction. 3. Parkinson's disease. 4. Deconditioning and difficulty walking. PLAN: TCU evaluation has been requested. We will put him on regimen of lactulose at bedtime, MiraLax in the morning. He is on Flomax already. We will follow up. The patient can be discharged to TCU. We will follow him up there. Nisha Johnson MD
[2018-10-25] MEDS ORDERED: POLYETHYLENE GLYCOL 3350 17 GM/Dose PACKET PO SCH (10:00)
== END 2018-10-24 13:52 | DRG 389 ==
LOC: ED 11:55 → ERH 17:39 → 3RSO 19:07 → OBSVTOIN 10-21 15:00
PROVIDERS: ADMIT Internal Medicine; ATTEND Internal Medicine
DX: K56.41 Fecal impaction (principal); N39.0 Urinary tract infection, site not specified; N40.1 Benign prostatic hyperplasia with lower urinary tract symptoms; G20 Parkinson's disease; M54.17 Radiculopathy, lumbosacral region; R33.8 Other retention of urine; F41.9 Anxiety disorder, unspecified; I25.10 Atherosclerotic heart disease of native coronary artery without angina pectoris; M48.07 Spinal stenosis, lumbosacral region; I95.1 Orthostatic hypotension; N18.9 Chronic kidney disease, unspecified; R26.2 Difficulty in walking, not elsewhere classified; J43.9 Emphysema, unspecified; Z95.5 Presence of coronary angioplasty implant and graft; Z86.79 Personal history of other diseases of the circulatory system; Z87.891 Personal history of nicotine dependence

== ENCOUNTER 2018-10-24 13:58 | Inpatient (IN) | payer OTHER, BC, MEDICARE ==
[2018-10-24 14:03] VITALS: BMI 21.9
[2018-10-24] MEDS: Carbidopa/Levodopa 25/100 CR PO SCH (17:12)
--- NOTE | 2018-10-24 17:12 | CON ---
DATE OF CONSULTATION: 10/24/2018 NEUROLOGY CONSULTATION CHIEF COMPLAINT: Parkinson's disease. HISTORY OF PRESENT ILLNESS: This is an 78-year-old man with history of uncontrolled Parkinson's disease, on Sinemet CR 25/100, one tab p.o. t.i.d., and amantadine by the movement specialist at [facility], who came in for constipation and found to have fecal impaction. Therefore, status post fecal impaction, doing much better. He is in [facility] for rehabilitation and deconditioned state. He has also had Parkinson's type dementia. He is deconditioned. PAST MEDICAL HISTORY: As above. ALLERGIES: ALLERGIC TO CODEINE, OMEPRAZOLE, AND MAGNESIUM. FAMILY HISTORY: Noncontributory. REVIEW OF SYSTEMS: A 14-point review of systems is negative except as per the HPI. MEDICATIONS: Reviewed by nurses' reconciliation sheet. LABORATORY DATA: No new labs done today. PHYSICAL EXAMINATION: VITAL SIGNS: Temperature of 97.3, pulse rate 72, blood pressure 150/94, respiration 20, oxygen sat 96% on room air. GENERAL: The patient is sitting up in bed, in no acute distress. HEENT: Atraumatic, normocephalic. PERRLA. Extraocular muscles intact. NECK: Supple. No JVD, no adenopathy noted. LUNGS: Clear to auscultation. No adventitious sounds. HEART: S1, S2. Normal rate and rhythm. No murmurs, rubs or gallops. ABDOMEN: Soft, nontender and nondistended. Bowel sounds are present. EXTREMITIES: No clubbing. No cyanosis. Peripheral pulses 2+ felt bilaterally. NEUROLOGIC: The patient is alert, oriented to person and place. Recall after 5 minutes is 0/3. Poor attention span. Slow thought process. Masklike facies. Cranial nerves II through XII intact. Speech is hypophonic, but no aphasia noted. Motor Exam: He has resting tremor in both arms, left worse than right. Increased tone throughout. Cogwheel rigidity at the wrist. No pronator drift seen. Toes are downgoing bilaterally. Sensory Exam: Light touch, pinprick, proprioception, and vibration are intact. DTRs are 2+ throughout. Coordination: [id number] intact with no dysmetria noted, but has bilateral resting tremors. Gait is deferred for now. IMPRESSION AND RECOMMENDATIONS: Uncontrolled tremor secondary to worsening Parkinson's disease as well as superimposed underlying Parkinson's disease dementia. At this time, I will continue his current medication regimen, where he is getting Sinemet CR 1 tab p.o. t.i.d. in addition to amantadine 100 mg p.o. daily, which he follows with the movement specialist at [facility]. At this time, continue the treatment with lactulose for his fecal impaction, which will help with his constipation. PT/OT for his underlying deconditioned state. Neville Barcenas MD
[2018-10-25] MEDS: Pantoprazole 40 mg EC Tab PO SCH (05:14)
[2018-10-25] MEDS: POLYETHYLENE GLYCOL 3350 17 GM/Dose PACKET PO SCH (09:23)
[2018-10-25] MEDS: Carbidopa/Levodopa 25/100 CR PO SCH ×3 (09:24→17:46)
--- NOTE | 2018-10-25 12:22 | HP ---
DATE OF EXAM: 10/25/2018 HISTORY OF PRESENT ILLNESS: The patient is 78-year-old who was initially seen in office with abdominal discomfort. He was found to have urinary retention and fecal impaction. He was admitted, was given laxatives. He was given multiple enemas and oral stool softener. Eventually, he was able to pass bowel movements. Since then, he is having intermittent diarrhea. PAST MEDICAL HISTORY: 1. He has significant past medical history of hypertension. 2. History of aortic aneurysm repair. 3. Parkinson disease. 4. History of BPH. ALLERGIES: ALLERGIC TO CODEINE AND OMEPRAZOLE. SOCIAL HISTORY: He is , lives with his . Denies smoking, drinking and alcohol use. PHYSICAL EXAMINATION: GENERAL: He is awake, alert, oriented and communicative. VITAL SIGNS: He is afebrile. Pulse 80, respirations 18 and blood pressure 92/60. LUNGS: Bilateral fair airflow. No rhonchi or crackle. HEART: S1 and S2, audible. ABDOMEN: Soft and nontender. No rebound. No guarding. NEUROLOGIC: The patient is awake, alert, oriented and communicative. ASSESSMENT: 1. Status post urinary retention, but able to avoid urine now. 2. Constipation, has resolved. 3. Postural hypertension, secondary to Parkinson disease. 4. History of Parkinson disease. PLAN: We will continue patient on current medication, encourage ambulation and also ordered for supportive stocking. Nisha Johnson MD
[2018-10-26] MEDS: Pantoprazole 40 mg EC Tab PO SCH (05:04)
[2018-10-26] MEDS: POLYETHYLENE GLYCOL 3350 17 GM/Dose PACKET PO SCH (09:26)
[2018-10-26] MEDS: Carbidopa/Levodopa 25/100 CR PO SCH ×3 (09:27→18:37)
[2018-10-27] MEDS: Pantoprazole 40 mg EC Tab PO SCH (05:34)
[2018-10-27] MEDS: POLYETHYLENE GLYCOL 3350 17 GM/Dose PACKET PO SCH (09:27)
[2018-10-27] MEDS: Carbidopa/Levodopa 25/100 CR PO SCH ×3 (09:27→18:47)
--- NOTE | 2018-10-28 04:09 | PN ---
DATE: 10/27/2018 SUBJECTIVE: The patient is 78 years old, seen and examined, lying in bed, seems to be comfortable. Gets tremulous on picking some objects, complained of ____ motion, had 3-4 in the last 24 hours. PHYSICAL EXAMINATION: VITAL SIGNS: He is afebrile. Pulse 72, respirations 20 and blood pressure 129/90. LUNGS: Bilateral fair airflow. No rhonchi or crackle. HEART: S1 and S2, audible. ABDOMEN: Soft and nontender. No rebound. No guarding. NEUROLOGIC: The patient is awake, alert, oriented, communicative. LABORATORY DATA: There is no new lab available today. ASSESSMENT: 1. Status post fecal impaction. 2. Status post urinary retention. 3. Parkinson's disease. 4. Postural hypotension. PLAN: We will continue supportive stocking. Continue current medication. We will discontinue IV antibiotics. Encourage ambulation and gait training. Nisha Johnson MD
[2018-10-28] MEDS: Pantoprazole 40 mg EC Tab PO SCH (05:51)
[2018-10-28] MEDS: Carbidopa/Levodopa 25/100 CR PO SCH ×3 (07:55→18:26)
[2018-10-28] MEDS: POLYETHYLENE GLYCOL 3350 17 GM/Dose PACKET PO SCH (10:04)
--- NOTE | 2018-10-29 00:40 | PN ---
DATE: 10/28/2018 SUBJECTIVE: The patient is 78-year-old. Seen and examined. Doing well. Eating and tolerating. Ambulating. Getting therapy. No nausea or vomiting. No diarrhea. Voiding and urinating, and having bowel movements too. PHYSICAL EXAMINATION: VITAL SIGNS: He is afebrile. Pulse 78, respirations 18, and blood pressure 126/78. LUNGS: Bilateral fair airflow. No rhonchi or crackle. HEART: S1 and S2, audible. ABDOMEN: Soft and nontender. No rebound. No guarding. NEUROLOGIC: He is awake, alert, oriented, communicative. Has intention tremor. ASSESSMENT: 1. Status post urinary tract infection. 2. Status post fecal impaction. 3. Postural hypotension. 4. Status post urinary retention, currently doing well. PLAN: The patient is clinically stable. We will continue current medications. We will re-evaluate in a.m. Nisha Johnson MD
[2018-10-29] MEDS: Pantoprazole 40 mg EC Tab PO SCH (05:27)
[2018-10-29] MEDS: Carbidopa/Levodopa 25/100 CR PO SCH ×3 (09:00→18:22)
[2018-10-29] MEDS: POLYETHYLENE GLYCOL 3350 17 GM/Dose PACKET PO SCH (09:44)
--- NOTE | 2018-10-29 18:04 | PN ---
DATE: 10/29/2018 SUBJECTIVE: The patient is an 78-year-old. Seen and examined. Sitting in chair, seems to be comfortable. No nausea or vomiting. No diarrhea. Eating and tolerating. Ambulating. Tremor seem to be improved. PHYSICAL EXAMINATION: VITAL SIGNS: He is afebrile. Pulse 78, respirations 18, and blood pressure 122/70. LUNGS: Bilateral fair airflow. No rhonchi or crackle. HEART: S1 and S2 audible. ABDOMEN: Soft and nontender. No rebound. No guarding. NEUROLOGICAL: The patient is awake, alert, able to communicate. ASSESSMENT: 1. Status post fecal impaction. 2. Status post urinary tract infection. 3. Postural hypotension. 4. Insomnia improved. 5. Hallucination improved. 6. Deconditioning, difficulty walking, seem to be improving. PLAN: We will continue current medications. We will follow up. Nisha Johnson MD
[2018-10-30] MEDS: Pantoprazole 40 mg EC Tab PO SCH (05:32)
[2018-10-30] MEDS: Carbidopa/Levodopa 25/100 CR PO SCH ×3 (07:26→18:10)
[2018-10-30] MEDS: POLYETHYLENE GLYCOL 3350 17 GM/Dose PACKET PO SCH (09:28)
--- NOTE | 2018-10-30 20:47 | PN ---
DATE: 10/30/2018 SUBJECTIVE: The patient is 78 years old, seen and examined, doing well. Sitting in chair, eating and tolerating. No urine or bowel issue couple of times a day and participating in therapy. PHYSICAL EXAMINATION: VITAL SIGNS: He is afebrile. Pulse 77, respiration 20, blood pressure 131/86. LUNGS: Bilateral fair airflow. No rhonchi or crackle. HEART: S1, S2 audible. ABDOMEN: Soft, nontender. No rebound. No guarding. NEUROLOGIC: He is awake, alert, oriented, communicative. Able to ambulate with a walker. ASSESSMENT: 1. Status post fecal impaction. 2. Status post urinary retention. 3. Parkinson's disease. 4. History of hallucination. 5. Deconditioning and difficulty walking, but doing well. PLAN: We will continue patient on amantadine. He is on Flomax, we will continue that. He is on MiraLax in the morning and lactulose at night. He is on Protonix. Continue him on Seroquel in the morning and 50 at nighttime. He is on Sinemet and at bedtime. We will follow up this patient in a.m. Discharge plan for Saturday. Nisha Johnson MD
[2018-10-31] MEDS: Pantoprazole 40 mg EC Tab PO SCH (05:34)
[2018-10-31] MEDS: Carbidopa/Levodopa 25/100 CR PO SCH ×3 (08:22→18:23)
[2018-10-31] MEDS: POLYETHYLENE GLYCOL 3350 17 GM/Dose PACKET PO SCH (09:52)
[2018-11-01] MEDS: Pantoprazole 40 mg EC Tab PO SCH (06:34)
[2018-11-01] MEDS: Carbidopa/Levodopa 25/100 CR PO SCH (08:06)
[2018-11-01] MEDS: POLYETHYLENE GLYCOL 3350 17 GM/Dose PACKET PO SCH (09:55)
[2018-11-01 10:14] VITALS: BP 120/83; PULSE 84; RESP 20; TEMP 97.5; O2SAT 97
--- NOTE | 2018-11-01 17:17 | CP.PCM.DIS ---
Provider - Provider Date of Admission: 10/24/18 13:58 Attending physician: Nisha Johnson MD Primary care physician: jackie johnson Consults: 10/24/18 17:55 Transition In Care/Readmission Reduction Routine Comment: Physician Instructions: Reason For Exam: new admit 10/29/18 10:58 [facility] [Case Management Referral] Routine Comment: Physician Instructions: Reason For Exam: [facility]NA SN for med and dis mgt, home PT for strengthen Reason for Referral: [facility]NA Eval Time Spent in preparation of Discharge (in minutes): 30 Diagnosis - Discharge Diagnosis (1) Parkinson disease, symptomatic Status: Acute Discharge Plan - Discharge Medications Prescriptions: Lactulose [Enulose] 30 gm PO HS PRN #1 udc PRN Reason: Constipation Tamsulosin [Flomax] 0.4 mg PO 1830 #90 cap - Follow Up Plan Condition: GOOD Disposition: HOME/ ROUTINE Instructions: Constipation, Adult (DC), Generalized Weakness (DC)
--- NOTE | 2018-11-03 13:35 | PN ---
DATE: 10/31/2018 SUBJECTIVE: The patient is an 78-year-old, seen and examined. Sitting in chair and seems to be comfortable and participating in therapy. Nausea and vomiting tolerating well. PHYSICAL EXAMINATION: VITAL SIGNS: She is afebrile. Pulse 77, respirations 20 and blood pressure 121/86. LUNGS: Bilateral fair airflow. No rhonchi or crackle. HEART: S1 and S2 audible. ABDOMEN: Soft and nontender. No rebound. No guarding. NEUROLOGICAL: She is awake, alert, oriented, and communicative. ASSESSMENT: 1. Seizure disorder. 2. Status post fecal impaction. 3. Status post urinary retention. 4. Hyperlipidemia. 5. Hypertension. PLAN: We will continue the patient on current medication and discharge is for tomorrow. Nisha Johnson MD
== END 2018-11-01 11:10 | disposition home or self-care (01) | DRG 57 ==
LOC: TRCU 13:58
PROVIDERS: ADMIT Internal Medicine; ATTEND Internal Medicine
PROC: F07Z9FZ Gait Training/Functional Ambulation Treatment using Assistive, Adaptive, Supportive or Protective Equipment (ICD-10-PCS; principal; 2018-10-24)
PROC: F07M6ZZ Therapeutic Exercise Treatment of Musculoskeletal System - Whole Body (ICD-10-PCS; 2018-10-24)
PROC: F08Z2ZZ Grooming/Personal Hygiene Treatment (ICD-10-PCS; 2018-10-24)
PROC: F08Z1ZZ Dressing Techniques Treatment (ICD-10-PCS; 2018-10-24)
PROC: F08Z0ZZ Bathing/Showering Techniques Treatment (ICD-10-PCS; 2018-10-24)
PROC: F08Z4ZZ Home Management Treatment (ICD-10-PCS; 2018-10-24)
DX: G20 Parkinson's disease (principal); K56.41 Fecal impaction; N40.1 Benign prostatic hyperplasia with lower urinary tract symptoms; R33.8 Other retention of urine; I10 Essential (primary) hypertension; F02.80 Dementia in other diseases classified elsewhere, unspecified severity, without behavioral disturbance, psychotic disturbance, mood disturbance, and anxiety; G47.00 Insomnia, unspecified; I95.1 Orthostatic hypotension; R26.2 Difficulty in walking, not elsewhere classified; Z86.79 Personal history of other diseases of the circulatory system; Z87.440 Personal history of urinary (tract) infections; Z88.5 Allergy status to narcotic agent; Z88.8 Allergy status to other drugs, medicaments and biological substances

== ENCOUNTER 2019-03-25 16:44 | Inpatient (IN) | payer MEDICARE, BC ==
[2019-03-25 17:00] VITALS: BMI 21.1
--- NOTE | 2019-03-25 17:07 | ED PDOC ---
Arrival/HPI - General Time Seen by Provider: 03/25/19 16:52 Historian: Patient - History of Present Illness Narrative History of Present Illness (Text): 03/25/19 17:03 Patient is a 78 year old male whose past medical history includes Parkinson's disease, urinary retention, and constipation, who presents to the ED complaining of urinary retention and constipation that started 3 days ago. Patient reports that he has only been able to produce a small amount of stool since Saturday(03/22/19), and last urinated 05:00AM today. He notes having difficulty with urinary retention and constipation in the past. Few months ago he presented with constipation, which resolved after receiving a soap suds enema. Patient denies fevers, chills, cough, shortness of breath, chest pain, dyspnea on exertion, back pain, neck pain, headache, dizziness, or any other complaint. Time/Duration: < week Symptom Onset: Gradual Symptom Course: Unchanged Activities at Onset: Rest Context: Home Past Medical History - Provider Review Nursing Documentation Reviewed: Yes - Infectious Disease Hx of Infectious Diseases: None - Tetanus Immunization Tetanus Immunization: Unknown - Cardiac Hx Congestive Heart Failure: Yes - Pulmonary Hx Respiratory Disorders: Yes (SMOKED 2 PPD QUIT.) Hx Bronchitis: Yes - Neurological Hx Neurological Disorder: Yes Hx Parkinson's Disease: Yes - HEENT Hx HEENT Disorder: Yes (wears eyeglasses) - Renal Hx Renal Disorder: No - Endocrine/Metabolic Hx Endocrine Disorders: No - Hematological/Oncological Hx Blood Disorders: No - Integumentary Hx Dermatological Disorder: Yes Other/Comment: 03-26-18 MULTIPLE BRUISING FROM FALLS.SKIN ABRASION.RIGHT ELBOW,HIP,HAND. - Musculoskeletal/Rheumatological Hx Falls: Yes - Gastrointestinal Hx Gastroesophageal Reflux: Yes Other/Comment: CONSTIPATION - Genitourinary/Gynecological Hx Genitourinary Disorders: Yes Hx Hematuria: Yes Hx Prostate Problems: Yes (enlarged) Hx Reproductive Disorders: No Other/Comment: had cysto - Psychiatric Hx Hallucinations: Yes (R/T PARKINSONS) Hx Substance Use: No - Surgical History Hx Cholecystectomy: Yes Hx Musculoskeletal Surgery: Yes - Anesthesia Hx Anesthesia Reactions: No Hx Malignant Hyperthermia: No - Suicidal Assessment Feels Threatened In Home Enviroment: No Family/Social History - Physician Review Nursing Documentation Reviewed: Yes Family/Social History: No Known Family HX Smoking Status: Former Smoker Hx Alcohol Use: No Hx Substance Use: No Hx Substance Use Treatment: No Allergies/Home Meds Allergies/Adverse Reactions: Allergies codeine Allergy (Severe, Verified 03/25/19 17:06) DIFF BREATHING/ SWELLING OF EYES omeprazole [From Prilosec] Allergy (Severe, Verified 03/25/19 17:06) ANAPHYLAXIS omeprazole magnesium [From Prilosec] Allergy (Severe, Verified 03/25/19 17:06) ANAPHYLAXIS Home Medications: Home Meds Medication Instructions Recorded Confirmed Amantadine [Amantadine 100 mg Cap] 100 mg PO DAILY 03/26/18 03/25/19 Quetiapine Fumarate [Seroquel] 50 mg PO HS 10/17/18 03/25/19 Carbidopa/Levodopa [Sinemet Cr 1 tab PO TID 10/20/18 03/25/19 25-100 Tablet] Quetiapine Fumarate [Seroquel] 25 mg PO DAILY 10/20/18 03/25/19 Review of Systems - Physician Review All systems were reviewed & negative as marked: Yes - Review of Systems Constitutional: absent: Fevers, Night Sweats Respiratory: absent: SOB Cardiovascular: absent: Chest Pain Gastrointestinal: Constipation. absent: Diarrhea, Nausea, Vomiting Genitourinary Male: Urinary Output Changes (decreased frequency) Musculoskeletal: absent: Back Pain Neurological: absent: Headache, Dizziness Physical Exam Vital Signs Reviewed: Yes Vital Signs Temp Pulse Resp BP Pulse Ox 03/25/19 17:00 98.0 F 93 H 18 156/88 H 98 Temperature: Afebrile Blood Pressure: Hypertensive Pulse: Regular Respiratory Rate: Normal Appearance: Positive for: Well-Appearing Mental Status: Positive for: Alert and Oriented X 3 - Systems Exam Head: Present: Atraumatic, Normocephalic Pupils: Present: PERRL Extroacular Muscles: Present: EOMI Conjunctiva: Present: Normal Mouth: Present: Moist Mucous Membranes Neck: Present: Normal Range of Motion Respiratory/Chest: Present: Clear to Auscultation, Good Air Exchange. No: Respiratory Distress, Accessory Muscle Use Cardiovascular: Present: Regular Rate and Rhythm, Normal S1, S2. No: Murmurs Abdomen: Present: Tenderness (minimal tenderness of lower abdomen). No: Distention, Peritoneal Signs Genitourinary Male: No: Other (No sign of bladder distention) Back: Present: Normal Inspection Upper Extremity: Present: Normal Inspection (has resting tremors of upper extremities, which is baseline due to his Parkinsons.). No: Cyanosis, Edema Lower Extremity: Present: Normal Inspection. No: Edema Neurological: Present: GCS=15, CN II-XII Intact, Speech Normal Skin: Present: Warm, Dry, Normal Color. No: Rashes Psychiatric: Present: Alert, Oriented x 3, Normal Insight, Normal Concentration Medical Decision Making ED Course and Treatment: 03/25/19 17:11 Impression: 78 year old male complaining of urinary retention and constipation that started 3 days ago. Plan: -- Abdominal and Pelvic CT with IV contrast -- Labs -- Blood work -- Reassess and disposition Prior Visits: Notes and results from previous visits were reviewed. Verduzco catheter placed by RN with immediate output of about 600cc urine. Fleets enema ordered for constipation. 03/25/19 20:23 Family uncomfortable taking patient home as he has been admitted for similar urinary retention and constipation several months ago. Case discussed with Dr. Johnson, who is aware and agrees with plan. Accepts pt in to her service. - Lab Interpretations I have reviewed the lab results: Yes - RAD Interpretation Narrative RAD Interpretations (Text): 03/25/19 20:22 CT Abdomen and Pelvis: LUNG BASES: There is no consolidation or atelectasis. There is minimal pleural thickening calcific plaques bilaterally. LIVER: Unremarkable. GALLBLADDER AND BILE DUCTS: The gallbladder has been surgically removed. He has been No radioopaque gallstones are seen. No biliary ductal dilatation is evident. PANCREAS: Unremarkable. SPLEEN: Unremarkable. ADRENAL GLANDS: Unremarkable. KIDNEYS, URETERS, AND BLADDER: Bilateral renal cysts largest cyst within the right kidney measuring 5.9 x 5 cm. There is no hydronephrosis or hydroureter. No urinary calculi are seen. Verduzco catheter in an incompletely distended bladder. STOMACH AND BOWEL: Unremarkable appearance of the stomach and bowel. No evidence of bowel obstruction. No evidence suggesting enteritis or colitis. Large amount of fecal material seen within the rectum with fecal impaction suspected. APPENDIX: No evidence of acute appendicitis on CT examination. PERITONEUM: No free fluid. No free air. LYMPH NODES: No lymphadenopathy is evident. REPRODUCTIVE: Prostate gland moderately enlarged. VASCULATURE: Aneurysm of the abdominal aorta measuring approximately 5.6 x 6.5 cm in maximum diameter with the endovascular repair extending to the common iliac arteries. BONES: Postsurgical changes present lower lumbar spine. IMPRESSION: No consolidation or atelectasis. Minimal pleural thickening and pleural plaque bilaterally. No suspicious mass or lymphadenopathy within the abdomen and pelvis. Gallbladder surgically removed. Prominent bilateral renal cysts. Large aneurysm of the abdominal aorta with endovascular graft repair. Large amount of fecal material within the rectum with fecal impaction suspected. Large prostate gland. Verduzco catheter present within the bladder. Postsurgical changes lower lumbar spine. Electronically signed on March 25, 2019 8:20:15 PM EDT by: Solo Mota M.D., Certified by [facility], Diagnostic Radiology Automotive Engineer: Radiologist - Scribe Statement The provider has reviewed the documentation as recorded by the Scribe Solo Bueno Provider Scribe Attestation: All medical record entries made by the Scribe were at my direction and personally dictated by me. I have reviewed the chart and agree that the record accurately reflects my personal performance of the history, physical exam, medical decision making, and the department course for this patient. I have also personally directed, reviewed, and agree with the discharge instructions and disposition. Disposition/Present on Arrival - Present on Arrival Any Indicators Present on Arrival: No History of DVT/PE: No History of Uncontrolled Diabetes: No Urinary Catheter: No History Surgical Site Infection Following: None - Disposition Have Diagnosis and Disposition been Completed?: Yes Diagnosis: Urinary retention, Constipation Disposition: HOSPITALIZED Disposition Time: 20:00 Condition: GOOD
[2019-03-25] MEDS ORDERED: Iohexol 350 MG/100 ML VIAL ONE (17:20)
[2019-03-25 17:38] LABS: BASO # 0.03 K/mm3 (0.0-2.0); BASO % 0.2 % (0.0-3.0); EOS % 0.2 % (1.5-5.0); HEMOGLOBIN 12.6 g/dL (14.0-18.0); LYMPH # 0.9 (1.2-3.4); LYMPH % 5.8 % (22.0-35.0); MEAN CELL VOLUME 89.7 fl (80.0-105.0); MEAN CORPUSCULAR HEMOGLOBIN 28.7 pg (25.0-35.0); MEAN PLATELET VOLUME 9.9 fl (7.0-11.0); MONO % 6.9 % (1.0-6.0); RBC 4.39 10^6/uL (3.5-6.1); RED CELL DISTRIBUTION WIDTH 14.8 % (11.5-14.5); WHITE BLOOD COUNT 15.1 10^3/uL (4.5-11.0)
[2019-03-25 17:53] LABS: ALBUMIN 3.7 g/dL (3.0-4.8); AST/SGOT 27 U/L (17-59); BLOOD UREA NITROGEN 40 mg/dL (7-21); GFR NON-AFRICAN AMERICAN 49
[2019-03-25 17:57] LABS: ALT/SGPT < 6 U/L (7-56)
[2019-03-25 20:21] LABS: PH,URINE 7.5 (4.7-8.0); URINE APPEARANCE CLEAR (CLEAR); URINE BILIRUBIN NEGATIVE (NEGATIVE); URINE BLOOD NEGATIVE (NEGATIVE); URINE COLOR YELLOW (YELLOW); URINE GLUCOSE (UA) NEGATIVE (NEGATIVE); URINE LEUKOCYTE ESTERASE NEGATIVE Leu/uL (NEGATIVE); URINE PROTEIN TRACE mg/dL (<30 mg/dL); URINE UROBILINOGEN 0.2 E.U./dL (<1 E.U./dL)
[2019-03-25 20:50] LABS: URINE BACTERIA FEW /hpf
[2019-03-25] MEDS ORDERED: Carbidopa/Levodopa 25/100 CR PO SCH ×2 (23:36→23:45)
[2019-03-25] MEDS ORDERED: Carbidopa/Levodopa 25/100 CR PO ONE (23:38)
[2019-03-25] MEDS: POLYETHYLENE GLYCOL 3350 17 GM/Dose PACKET PO SCH (23:50)
--- NOTE | 2019-03-26 05:00 | HP ---
DATE OF EXAM: 03/25/2019 HISTORY OF PRESENT ILLNESS: The patient is an 78-year-old known to me from previous admission, brought to emergency room because of abdominal discomfort, not having bowel movement for the last three days. He also was having some difficulty voiding. He had similar episode in September when he went into urinary retention and he was constipated. He was treated symptomatically with oral and rectal laxatives. His last bowel movement was hard stool that he passed on 03/22/2019 and he was unable to void since morning. No history of fever or chills. No history of nausea or vomiting. He does have history of constipation. He has unstable gait. PAST MEDICAL HISTORY: Significant for: 1. Parkinson's disease. 2. History of urinary retention. 3. Unstable gait. 4. History of hypertension. 5. History of BPH. ALLERGIES: HE IS ALLERGIC TO CODEINE AND . SOCIAL HISTORY: He is and lives with his . No history of smoking, drinking, or alcohol use. MEDICATIONS AT HOME: He is on amantadine 100 mg daily, Flomax 0.4 at bedtime, Seroquel 25 in the morning and Seroquel 50 mg at bedtime, and he is on Sinemet one tablet three times a day. REVIEW OF SYSTEMS: Significant for suprapubic discomfort up until he was catheterized and he had . PHYSICAL EXAMINATION: GENERAL: He is awake, alert, and able to communicate. VITAL SIGNS: He is afebrile, pulse 83, respirations 18, and blood pressure 149/95. LUNGS: Bilateral fair airflow. No rhonchi or crackle. HEART: S1 and S2 audible. ABDOMEN: Soft and nontender. Suprapubic discomfort. NEUROLOGIC: He is awake, alert and able to communicate. LABORATORY DATA: WBC of 15.1, hemoglobin 12.6, hematocrit 39.4, and platelets 205. Chemistries; sodium 141, potassium 4.5, chloride 106, CO2 of 26, BUN 40, creatinine 1.5, and blood sugar of 110. LFTs are within normal limits. Alk phos is 141. Urinalysis shows trace protein. CT scan of the abdomen and pelvis showed fecal impaction. ASSESSMENT: 1. Constipation with fecal impaction. 2. Urinary retention. 3. Parkinson's disease. 4. Hypertension. 5. Unstable gait. PLAN: We will start him on laxative. He has Verduzco catheter. We will start him on Flomax and I will start him on MiraLax and he was given enema. We will follow up his electrolytes in a.m. He was given clear liquids and we will reevaluate in a.m. Nisha Johnson MD
--- NOTE | 2019-03-26 09:04 | CT ---
Date of service: 03/25/2019 PROCEDURE: CT Abdomen and Pelvis with contrast HISTORY: Constipation, abdominal pain COMPARISON: 10/20/2018 TECHNIQUE: CT scan of the abdomen and pelvis was performed after administration of intravenous contrast. Oral contrast was not administered. Coronal and sagittal reformatted images were obtained. Contrast dose: 95 mL Omnipaque 350 Radiation dose: Total exam DLP = 744.46 mGy-cm. This CT exam was performed using one or more of the following dose reduction techniques: Automated exposure control, adjustment of the mA and/or kV according to patient size, and/or use of iterative reconstruction technique. FINDINGS: LOWER THORAX: There is a stable 4 mm subpleural nodule in the right middle lobe. There is subsegmental atelectasis in the lower lobes. LIVER: Normal in size with homogeneous enhancement. No gross lesion. GALLBLADDER AND BILE DUCTS: Surgically absent. There is mild intrahepatic biliary dilatation and mild dilatation of the common bile duct in keeping with postcholecystectomy status. PANCREAS: Normal in size with homogeneous enhancement. No gross lesion or ductal dilatation. SPLEEN: Normal in size and appearance. ADRENALS: No discrete nodule. KIDNEYS AND URETERS: Normal in size with homogeneous enhancement. No hydronephrosis. There are simple cysts in both kidneys, the largest exophytic cyst in the right lower pole measures 5.9 x 6.0 cm.. VASCULATURE: There is redemonstration of a large infrarenal fusiform abdominal aortic aneurysm. There is stable appearance of endovascular stent graft in the suprarenal aorta as well as aorto iliac stent graft in the infrarenal aneurysm. There is linear contrast in the aneurysm anteriorly suggestive of graft leak, decreased since the prior examination. BOWEL: Evaluation of the bowel is limited in the absence of oral contrast. The small bowel loops are normal in caliber. The small bowel loops are normal in caliber. There is an apparent 2.6 x 2.9 cm round lesion in the cecum. There is large amount of stool in the rectum with fecal impaction, associated rectal distension and rectal wall thickening. There are also mild perirectal inflammatory changes. APPENDIX: Normal appendix. PERITONEUM: No free fluid. No free air. LYMPH NODES: No enlarged lymph nodes. BLADDER: Indwelling Verduzco catheter with subsequent decompression of the urinary bladder. REPRODUCTIVE: There is moderate enlargement of the prostate gland. BONES: There is a stable chronic inferior endplate compression fracture in the T12 vertebral body. Status post posterior spinal fixation at L4 and L5. OTHER FINDINGS: None. IMPRESSION: 1. Fecal stasis and impaction in the rectum with rectal distension and rectal wall thickening and mild perirectal inflammatory changes which may represent stercoral colitis in the appropriate clinical setting. 2. 2.6 x 2.9 cm round lesion in the cecum which may represent a polyp or adenoma however malignancy cannot be excluded. Please correlate with colonoscopy. 3. Stable large infrarenal aortic aneurysm with stable appearance of endovascular stent graft. Interval decrease in endograft leak. 4. Moderate enlargement of the prostate gland. Please correlate with PSA levels. A preliminary report was provided by [employer].. The final report is tagged to the PA review folder..
--- NOTE | 2019-03-26 09:13 | CARD ---
APPROVED REPORT Date of service: 03/25/2019 EKG Measurement Heart [id number] <Conclusion> Normal sinus rhythm Left axis deviation Possible inferior infarct, age undetermined Abnormal ECG
[2019-03-26] MEDS: POLYETHYLENE GLYCOL 3350 17 GM/Dose PACKET PO SCH ×2 (09:43→18:39)
[2019-03-26] MEDS ORDERED: Carbidopa/Levodopa 25/100 CR PO SCH ×2 (10:00)
[2019-03-26] MEDS ORDERED: Magnesium Citrate Oral SOL (300 ml) PO ONE (12:09)
[2019-03-26] MEDS: Sodium Chloride 0.9% 1,000 ML IV SCH (13:10)
[2019-03-26] MEDS ORDERED: NuLYTELY (NACL/NAHCO3/KCL/PEG) 4L PO ONE (16:14)
--- NOTE | 2019-03-26 16:22 | CP.PCM.CON ---
<Joseph Hendrickson - Last Filed: 03/26/19 16:16> History of Present Illness - History of Present Illness History of Present Illness: PGY6 GI Fellow Consult Note Patient is an 78yo male with PMHx significant for CAD s/p PCIx3, AAA s/p repair, Parkinson's disease, chronic constipation, urinary retention who presented to the hospital with abdominal pain and constipation. The patient's family are at bedside during this encounter. Patient states that he has had worsening constipation over the past 2-3 months, only able to pass bowel movements every 3-4 days. Passing stool requires significant effort and lately has only resulted in the passage of minimal solid stool or liquid stool. He has had progressively worsening B/L lower quadrant abdominal pain since last Saturday which was the last time he passed any stool. Has used Miralax intermittently and daily stool softener pills daily without much relief. Admits to minimal water intake and does not ambulate much. No significant weight loss, rectal bleeding, nausea or vomiting. Does admit to bloating. CT scan performed does reveal significant stool burden as well as concern for a cecal lesion. Last colonoscopy was over ten years ago and per family, multiple polyps have been resected in the past. 12 system ROS performed and negative except where stated PMHx: See HPI PSHx; AAA repair, cholecystectomy, back surgery with metal implants for stenosis, PCIx3 FHx: Discussed with patient and no pertinent family history Social: Denies tobacco, EtOH or illicit drug use Past Patient History - Infectious Disease Hx of Infectious Diseases: None - Tetanus Immunizations Tetanus Immunization: Unknown - Past Social History Smoking Status: Former Smoker - CARDIAC Hx Congestive Heart Failure: Yes - PULMONARY Hx Respiratory Disorders: Yes (SMOKED 2 PPD QUIT.) Hx Bronchitis: Yes - NEUROLOGICAL Hx Neurological Disorder: Yes Hx Parkinson's Disease: Yes - HEENT Hx HEENT Problems: Yes (wears eyeglasses) - RENAL Hx Chronic Kidney Disease: No - ENDOCRINE/METABOLIC Hx Endocrine Disorders: No - HEMATOLOGICAL/ONCOLOGICAL Hx Blood Disorders: No - INTEGUMENTARY Hx Dermatological Problems: Yes Other/Comment: 03-26-18 MULTIPLE BRUISING FROM FALLS.SKIN ABRASION.RIGHT ELBOW,HIP,HAND. - MUSCULOSKELETAL/RHEUMATOLOGICAL Hx Falls: Yes - GASTROINTESTINAL Hx Gastroesophageal Reflux: Yes Other/Comment: CONSTIPATION - GENITOURINARY/GYNECOLOGICAL Hx Genitourinary Disorders: Yes Hx Hematuria: Yes Hx Prostate Problems: Yes (enlarged) Hx Reproductive Disorders: No Other/Comment: had cysto - PSYCHIATRIC Hx Hallucinations: Yes (R/T PARKINSONS) Hx Substance Use: No - SURGICAL HISTORY Hx Cholecystectomy: Yes Hx Musculoskeletal Surgery: Yes - ANESTHESIA Hx Anesthesia Reactions: No Hx Malignant Hyperthermia: No Meds Allergies/Adverse Reactions: Allergies Allergy/AdvReac Type Severity Reaction Status Date / Time codeine Allergy Severe DIFF Verified 03/25/19 17:06 BREATHING/ SWELLING OF EYES omeprazole [From Prilosec] Allergy Severe ANAPHYLAXIS Verified 03/25/19 17:06 omeprazole magnesium Allergy Severe ANAPHYLAXIS Verified 03/25/19 17:06 [From Prilosec] - Medications Medications: Current Medications Acetaminophen (Tylenol 325mg Tab) 650 mg PO Q6H PRN PRN Reason: Fever >100.4 F Amantadine HCl (Amantadine 100 Mg Cap) 100 mg PO DAILY [facility] Last Admin: 03/26/19 09:41 Dose: 100 mg Carbidopa/Levodopa (Sinemet) 1 tab PO 0800,1400,2000 [facility] Last Admin: 03/26/19 13:10 Dose: 1 tab Sodium Chloride (Sodium Chloride 0.9%) 1,000 mls @ 60 mls/hr IV .[id number] [facility] Last Admin: 03/26/19 13:10 Dose: 60 mls/hr Polyethylene Glycol (Miralax) 17 gm PO BID [facility] Last Admin: 03/26/19 09:43 Dose: 17 gm Quetiapine Fumarate (Seroquel) 50 mg PO HS [facility] Last Admin: 03/25/19 23:08 Dose: 50 mg Quetiapine Fumarate (Seroquel) 25 mg PO DAILY [facility]; Protocol Last Admin: 03/26/19 09:42 Dose: 25 mg Tamsulosin HCl (Flomax) 0.4 mg PO 1830 [facility] Physical Exam - Constitutional Appears: No Acute Distress, Chronically Ill - Eye Exam Eye Exam: EOMI, PERRL - ENT Exam ENT Exam: Mucous Membranes Moist - Respiratory Exam Respiratory Exam: Clear to Auscultation Bilateral. absent: Rales, Rhonchi, Wheezes - Cardiovascular Exam Cardiovascular Exam: RRR, +S1, +S2 - GI/Abdominal Exam GI & Abdominal Exam: Normal Bowel Sounds, Soft. absent: Distended, Firm, Guarding, Organomegaly, Rigid, Tenderness - Rectal Exam Additional comments: stool impaction in rectum - disimpaction performed with removal of solid brown fecal debris - Extremities Exam Extremities exam: Negative for: pedal edema Additional comments: see neuro exam - Neurological Exam Neurological exam: Alert, Oriented x3 Additional comments: rigidity noted in extremities, hand tremor noted - Psychiatric Exam Psychiatric exam: Normal Affect, Normal Mood - Skin Skin Exam: Dry, Warm Results - Vital Signs Recent Vital Signs: Last Vital Signs Temp 97.6 F 03/26/19 14:00 Pulse 77 03/26/19 14:00 Resp 18 03/26/19 14:00 BP 102/67 03/26/19 14:00 Pulse Ox 94 L 03/26/19 14:00 - Labs Result Diagrams: 03/25/19 17:30 03/25/19 17:30 Labs: Laboratory Results - last 24 hr 03/25/19 03/25/19 03/25/19 17:30 17:30 20:00 WBC 15.1 H D RBC 4.39 Hgb 12.6 L Hct 39.4 L MCV 89.7 MCH 28.7 MCHC 32.0 RDW 14.8 H Plt Count 205 MPV 9.9 Neut % (Auto) 86.9 H Lymph % (Auto) 5.8 L Grant % (Auto) 6.9 H Eos % (Auto) 0.2 L Baso % (Auto) 0.2 Lymph # (Auto) 0.9 L Grant # (Auto) 1.0 H Eos # (Auto) 0.0 Baso # (Auto) 0.03 Absolute Neuts (auto) 13.12 H Sodium 141 Potassium 4.5 Chloride 106 Carbon Dioxide 26 Anion Gap 13 BUN 40 H Creatinine 1.4 Est GFR ( Amer) 59 Est GFR (Non-Af Amer) 49 Random Glucose 110 Calcium 9.0 Total Bilirubin 0.4 AST 27 ALT < 6 L Alkaline Phosphatase 141 H Total Protein 7.6 Albumin 3.7 Globulin 3.9 Albumin/Globulin Ratio 1.0 L Urine Color Yellow Urine Appearance Clear Urine pH 7.5 Ur Specific [place] 1.010 Urine Protein Trace H Urine Glucose (UA) Negative Urine Ketones Negative Urine Blood Negative Urine Nitrate Negative Urine Bilirubin Negative Urine Urobilinogen 0.2 Ur Leukocyte Esterase Negative Urine RBC None Urine WBC 1 - 3 Ur Epithelial Cells 1 - 3 Urine Bacteria Few Assessment & Plan - Assessment and Plan (Free Text) Assessment: Patient is an 78yo male with PMHx significant for CAD s/p PCIx3, AAA s/p repair, Parkinson's disease, chronic constipation, urinary retention who presented to the hospital with abdominal pain and constipation -Chronic constipation with fecal impaction -Abnormal CT imaging of the cecum -CAD/AAA with intervention previously -Parkinson's disease Plan: -S/P fecal disimpaction at bedside -CT reviewed with concern for cecal lesion -Patient and family would prefer to attempt bowel prep first to see if patient can tolerate before committing to endoscopic evaluation of cecal lesion -Patient encouraged to drink 2L Nulytely bowel cleanse today/tonight along with use of 10mg Dulcolax suppository -If patient can successfully prep, can consider endoscopic evaluation - family leaning towards prep and repeat imaging to better evaluate cecal area once stool burden is improved -Liquid diet only -Will require ongoing bowel regimen with Miralax or can consider Linzess/Amitiza on D/C - Date & Time Date: 03/26/19 Time: 15:45 <Carlton Burgos V - Last Filed: 03/27/19 22:49> Meds - Medications Medications: Current Medications Acetaminophen (Tylenol 325mg Tab) 650 mg PO Q6H PRN PRN Reason: Fever >100.4 F Amantadine HCl (Amantadine 100 Mg Cap) 100 mg PO DAILY [facility] Last Admin: 03/26/19 09:41 Dose: 100 mg Carbidopa/Levodopa (Sinemet) 1 tab PO 0800,1400,2000 [facility] Last Admin: 03/26/19 18:39 Dose: 1 tab Sodium Chloride (Sodium Chloride 0.9%) 1,000 mls @ 60 mls/hr IV .[id number] [facility] Last Admin: 03/26/19 13:10 Dose: 60 mls/hr Polyethylene Glycol (Miralax) 17 gm PO BID [facility] Last Admin: 03/26/19 18:39 Dose: 17 gm Quetiapine Fumarate (Seroquel) 50 mg PO HS [facility] Last Admin: 03/25/19 23:08 Dose: 50 mg Quetiapine Fumarate (Seroquel) 25 mg PO DAILY [facility]; Protocol Last Admin: 03/26/19 09:42 Dose: 25 mg Tamsulosin HCl (Flomax) 0.4 mg PO 1830 [facility] Last Admin: 03/26/19 18:39 Dose: 0.4 mg Results - Vital Signs Recent Vital Signs: Last Vital Signs Temp 97.6 F 03/26/19 14:00 Pulse 77 03/26/19 14:00 Resp 18 03/26/19 14:00 BP 102/67 03/26/19 14:00 Pulse Ox 94 L 03/26/19 14:00 - Labs Result Diagrams: 03/27/19 07:00 03/27/19 07:00 Labs: Laboratory Results - last 24 hr 03/25/19 20:00 Urine Color Yellow Urine Appearance Clear Urine pH 7.5 Ur Specific [place] 1.010 Urine Protein Trace H Urine Glucose (UA) Negative Urine Ketones Negative Urine Blood Negative Urine Nitrate Negative Urine Bilirubin Negative Urine Urobilinogen 0.2 Ur Leukocyte Esterase Negative Urine RBC None Urine WBC 1 - 3 Ur Epithelial Cells 1 - 3 Urine Bacteria Few Attending/Attestation - Attestation I have personally seen and examined this patient.: Yes I have fully participated in the care of the patient.: Yes I have reviewed all pertinent clinical information: Yes Notes (Text): There is an addendum to the GA consultation dictated by the fellow. I have discussed his case with the Dr. Johnson. CT scans were reviewed. We will start the patient on GoLYTELY half a gallon and another half a gallon in the a.m. Patient has significant fecal material in the colon. Consider colonoscopy to evaluate the cecal abnormality once a bowel clearance is achieved 03/26/19 19:39 03/27/19 00:56
--- NOTE | 2019-03-26 21:27 | PN ---
DATE: 03/26/2019 SUBJECTIVE: Patient is 78 years old, seen and examined, seems worried. He is awake and alert, but somewhat confused, still did not have bowel movement. PHYSICAL EXAMINATION: VITAL SIGNS: He is afebrile, pulse 77, respirations 18, blood pressure 102/67. LUNGS: Bilateral fair airflow. No rhonchi or crackle. HEART: S1 and S2 audible. ABDOMEN: Soft, slight suprapubic right lower and left lower quadrant discomfort. NEUROLOGIC: He is awake and alert, but confused at times. ASSESSMENT: 1. Status post urinary retention. 2. Constipation. 3. Parkinson's disease. 4. Deconditioning and difficulty walking. PLAN: We will start patient on small dose of IV fluids. Keep him on clear liquid. Currently, he will be given one dose of magnesium citrate. Follow up his electrolytes, CBC, and CMP in the a.m. Nisha Johnson MD
[2019-03-27] MEDS: Sodium Chloride 0.9% 1,000 ML IV SCH ×2 (06:54→21:41)
[2019-03-27 07:26] LABS: MEAN CELL VOLUME 89.7 fl (80.0-105.0); MEAN CORPUSCULAR HEMOGLOBIN 28.2 pg (25.0-35.0); MEAN CORPUSCULAR HGB CONC 31.4 g/dl (31.0-37.0); MEAN PLATELET VOLUME 9.7 fl (7.0-11.0); RBC 4.26 10^6/uL (3.5-6.1); RED CELL DISTRIBUTION WIDTH 14.9 % (11.5-14.5); WHITE BLOOD COUNT 9.6 10^3/uL (4.5-11.0)
[2019-03-27 07:42] LABS: BLOOD UREA NITROGEN 26 mg/dL (7-21); CALCIUM 8.5 mg/dL (8.4-10.5); GFR NON-AFRICAN AMERICAN 58
[2019-03-27] MEDS: POLYETHYLENE GLYCOL 3350 17 GM/Dose PACKET PO SCH ×2 (09:57→19:46)
--- NOTE | 2019-03-27 11:14 | CP.PCM.PN ---
<InesgiovanniJoseph - Last Filed: 03/27/19 15:40> Subjective - Date & Time of Evaluation Date of Evaluation: 03/27/19 Time of Evaluation: 08:10 - Subjective Subjective: PGY6 GI Fellow Progress Note Patient seen and examined bedside this morning. The patient states that he is feeling well today and has no new complaints. Does note that he drank a small amount of NuLytely and took dulcolax suppositories yesterday and subsequently pa ssed multiple bowel movements. Denies any rectal bleeding, bloating or pain at this time. 12 system ROS performed and negative except where stated. Objective - Vital Signs/Intake and Output Vital Signs (last 24 hours): Temp Pulse Resp BP Pulse Ox 97.3 F L 65 20 137/87 95 03/27/19 06:00 03/27/19 06:00 03/27/19 06:00 03/27/19 06:00 03/27/19 06:00 Intake and Output: 03/27/19 03/27/19 06:59 18:59 Intake Total 1000 Output Total 1000 Balance 0 - Medications Medications: Current Medications Acetaminophen (Tylenol 325mg Tab) 650 mg PO Q6H PRN PRN Reason: Fever >100.4 F Amantadine HCl (Amantadine 100 Mg Cap) 100 mg PO DAILY [facility] Last Admin: 03/27/19 09:57 Dose: 100 mg Carbidopa/Levodopa (Sinemet) 1 tab PO 0800,1400,2000 [facility] Last Admin: 03/27/19 07:03 Dose: Not Given Sodium Chloride (Sodium Chloride 0.9%) 1,000 mls @ 60 mls/hr IV .[id number] [facility] Last Admin: 03/27/19 06:54 Dose: 60 mls/hr Polyethylene Glycol (Miralax) 17 gm PO BID [facility] Last Admin: 03/27/19 09:57 Dose: 17 gm Quetiapine Fumarate (Seroquel) 50 mg PO HS [facility] Last Admin: 03/26/19 21:18 Dose: 50 mg Quetiapine Fumarate (Seroquel) 25 mg PO DAILY [facility]; Protocol Last Admin: 03/27/19 09:57 Dose: 25 mg Tamsulosin HCl (Flomax) 0.4 mg PO 1830 [facility] Last Admin: 03/26/19 18:39 Dose: 0.4 mg - Labs Labs: 03/27/19 07:00 03/27/19 07:00 - Constitutional Appears: Non-toxic, No Acute Distress - Eye Exam Eye Exam: EOMI, PERRL - ENT Exam ENT Exam: Mucous Membranes Moist - Respiratory Exam Respiratory Exam: Clear to Ausculation Bilateral. absent: Rales, Rhonchi, Wheezes - Cardiovascular Exam Cardiovascular Exam: RRR, +S1, +S2 - GI/Abdominal Exam GI & Abdominal Exam: Soft, Normal Bowel Sounds. absent: Distended, Firm, Guarding, Rigid, Tenderness, Organomegaly - Extremities Exam Extremities Exam: absent: Pedal Edema Additional comments: tremor noted - Neurological Exam Neurological Exam: Alert, Awake, Oriented x3 - Psychiatric Exam Psychiatric exam: Normal Affect, Normal Mood - Skin Skin Exam: Dry, Warm Assessment and Plan - Assessment and Plan (Free Text) Assessment: Patient is an 78yo male with PMHx significant for CAD s/p PCIx3, AAA s/p repair, Parkinson's disease, chronic constipation, urinary retention who presented to the hospital with abdominal pain and constipation -Chronic constipation with fecal impaction -Abnormal CT imaging of the cecum -CAD/AAA with intervention previously -Parkinson's disease Plan: -Patient did not tolerate much of the NuLytely and used Dulcolax supp as ordered with multiple BM -Will continue to monitor closely and encourage ongoing laxative therapy; if patient can tolerate enough, slow bowel preparation over the weekend, we can consider intervention with colonoscopy next week -If patient unable to tolerate prep, consider repeating imaging with oral contrast to discern right sided lesion (stool vs lesion) -Liquid diet <Loretta,Kovil V - Last Filed: 03/27/19 22:51> Objective - Vital Signs/Intake and Output Vital Signs (last 24 hours): Temp Pulse Resp BP Pulse Ox 98.3 F 78 20 150/86 98 03/27/19 22:00 03/27/19 22:00 03/27/19 22:00 03/27/19 22:00 03/27/19 22:00 Intake and Output: 03/27/19 03/28/19 18:59 06:59 Intake Total 240 Output Total 800 1200 Balance -560 -1200 - Medications Medications: Current Medications Acetaminophen (Tylenol 325mg Tab) 650 mg PO Q6H PRN PRN Reason: Fever >100.4 F Amantadine HCl (Amantadine 100 Mg Cap) 100 mg PO DAILY [facility] Last Admin: 03/27/19 09:57 Dose: 100 mg Carbidopa/Levodopa (Sinemet) 1 tab PO 0800,1400,2000 [facility] Last Admin: 03/27/19 21:03 Dose: 1 tab Sodium Chloride (Sodium Chloride 0.9%) 1,000 mls @ 60 mls/hr IV .[id number] [facility] Last Admin: 03/27/19 21:41 Dose: 60 mls/hr Polyethylene Glycol (Miralax) 17 gm PO BID [facility] Last Admin: 03/27/19 19:46 Dose: Not Given Quetiapine Fumarate (Seroquel) 50 mg PO HS [facility] Last Admin: 03/27/19 21:04 Dose: 50 mg Quetiapine Fumarate (Seroquel) 25 mg PO DAILY [facility]; Protocol Last Admin: 03/27/19 09:57 Dose: 25 mg Tamsulosin HCl (Flomax) 0.4 mg PO 1830 [facility] Last Admin: 03/27/19 19:45 Dose: 0.4 mg - Labs Labs: 03/27/19 07:00 03/27/19 07:00 Attending/Attestation - Attestation I have personally seen and examined this patient.: Yes I have fully participated in the care of the patient.: Yes I have reviewed all pertinent clinical information, including history, physical exam and plan: Yes Notes (Text): This patient finally started moving his bowels. Patient did have a manual disimpaction and GoLYTELY half a gallon. Patient now refusing to drink any further GoLYTELY. CT scan was reviewed. Patient would benefit from colonoscopy if is agreeable. Will discuss with Dr. Johnson again. 03/27/19 22:50
--- NOTE | 2019-03-27 12:23 | CP.PCM.PCO ---
Additional Comments - Additional Comments Additional Comments: Pt seen and examined at bedside. Per RN, pt had 5 BMs yesterday after fecal disimpaction and had 2 large soft BMs today. He is on Miralax. GI on consult. Physical therapy pending. Will continue to follow.
--- NOTE | 2019-03-27 17:49 | CT ---
Date of service: 03/27/2019 PROCEDURE: CT HEAD WITHOUT CONTRAST. HISTORY: persistant headache//s/p fall COMPARISON: 05/22/2012. CT head TECHNIQUE: Axial computed tomography images were obtained through the head/brain without intravenous contrast. Supplemental Coronal and Sagittal projections created and reviewed. Radiation dose: Total exam DLP = 1312.51 mGy-cm. This CT exam was performed using one or more of the following dose reduction techniques: Automated exposure control, adjustment of the mA and/or kV according to patient size, and/or use of iterative reconstruction technique. FINDINGS: HEMORRHAGE: No intracranial hemorrhage. BRAIN: No mass effect or edema. Cortical and cerebellar atrophy, periventricular small vessel disease. 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 VENTRICLES: Unremarkable. No hydrocephalus. CALVARIUM: Unremarkable. PARANASAL SINUSES: Unremarkable as visualized. No significant inflammatory changes. MASTOID AIR CELLS: Unremarkable as visualized. No inflammatory changes. OTHER FINDINGS: None. IMPRESSION: No acute intracranial abnormalities. No significant findings to account for the clinical presentation. No significant interval change compared to the prior examination(s).
[2019-03-28] MEDS: POLYETHYLENE GLYCOL 3350 17 GM/Dose PACKET PO SCH ×2 (09:54→17:31)
--- NOTE | 2019-03-28 12:10 | CP.PCM.PN ---
<Lisa Naik - Last Filed: 03/28/19 12:07> Subjective - Date & Time of Evaluation Date of Evaluation: 03/28/19 Time of Evaluation: 07:00 - Subjective Subjective: GI Fellow PGY5 Pt reports having 2 BM this am, on at 5am with hard ball stool and then a 6am with liquid stool. ROS: A 12pt ROS was negative except as above. Objective - Vital Signs/Intake and Output Vital Signs (last 24 hours): Temp Pulse Resp BP Pulse Ox 98.4 F 76 20 140/87 95 03/28/19 06:00 03/28/19 06:00 03/28/19 06:00 03/28/19 06:00 03/28/19 06:00 Intake and Output: 03/28/19 03/28/19 06:59 18:59 Intake Total 0 Output Total 1650 Balance -1650 - Medications Medications: Current Medications Acetaminophen (Tylenol 325mg Tab) 650 mg PO Q6H PRN PRN Reason: Fever >100.4 F Amantadine HCl (Amantadine 100 Mg Cap) 100 mg PO DAILY [facility] Last Admin: 03/28/19 09:57 Dose: 100 mg Carbidopa/Levodopa (Sinemet) 1 tab PO 0800,1400,2000 [facility] Last Admin: 03/28/19 09:55 Dose: 1 tab Polyethylene Glycol (Miralax) 17 gm PO BID [facility] Last Admin: 03/28/19 09:54 Dose: 17 gm Quetiapine Fumarate (Seroquel) 50 mg PO HS [facility] Last Admin: 03/27/19 21:04 Dose: 50 mg Quetiapine Fumarate (Seroquel) 25 mg PO DAILY [facility]; Protocol Last Admin: 03/28/19 09:54 Dose: 25 mg Tamsulosin HCl (Flomax) 0.4 mg PO 1830 [facility] Last Admin: 03/27/19 19:45 Dose: 0.4 mg - Labs Labs: 03/27/19 07:00 03/27/19 07:00 - Constitutional Appears: Non-toxic, No Acute Distress - Head Exam Head Exam: ATRAUMATIC, NORMAL INSPECTION, NORMOCEPHALIC - Eye Exam Eye Exam: EOMI, Normal appearance, PERRL - ENT Exam ENT Exam: Mucous Membranes Dry, Mucous Membranes Moist - Neck Exam Neck Exam: Full ROM, Normal Inspection - Respiratory Exam Respiratory Exam: Clear to Ausculation Bilateral, NORMAL BREATHING PATTERN - Cardiovascular Exam Cardiovascular Exam: REGULAR RHYTHM, RRR, +S1, +S2 - GI/Abdominal Exam GI & Abdominal Exam: Soft, Normal Bowel Sounds. absent: Distended, Firm, Guarding, Tenderness - Rectal Exam Rectal Exam: Deferred - Extremities Exam Extremities Exam: Full ROM, Normal Inspection - Neurological Exam Neurological Exam: Alert, Awake, Oriented x3 - Psychiatric Exam Psychiatric exam: Normal Affect, Normal Mood - Skin Skin Exam: Dry, Intact, Normal Color, Warm Assessment and Plan - Assessment and Plan (Free Text) Assessment: Patient is an 78yo male with PMHx significant for CAD s/p PCIx3, AAA s/p repair, Parkinson's disease, chronic constipation, urinary retention who presented to the hospital with abdominal pain and constipation -Chronic constipation with fecal impaction -Abnormal CT imaging of the cecum -CAD/AAA with intervention previously -Parkinson's disease Plan: -Patient did not tolerate much of the golyetely -Continue bowel regimen, avoid constipation -Will continue to monitor closely and encourage ongoing laxative therapy -Pt refusing colonoscopy -Liquid diet advance as tolerated -Will continue to follow closely <Carlton Burgos V - Last Filed: 03/28/19 22:02> Objective - Vital Signs/Intake and Output Vital Signs (last 24 hours): Temp Pulse Resp BP Pulse Ox 98.4 F 76 20 140/87 95 03/28/19 06:00 03/28/19 06:00 03/28/19 06:00 03/28/19 06:00 03/28/19 06:00 Intake and Output: 03/28/19 03/29/19 18:59 06:59 Intake Total 1200 Output Total 400 Balance 800 - Medications Medications: Current Medications Acetaminophen (Tylenol 325mg Tab) 650 mg PO Q6H PRN PRN Reason: Fever >100.4 F Amantadine HCl (Amantadine 100 Mg Cap) 100 mg PO DAILY [facility] Last Admin: 03/28/19 09:57 Dose: 100 mg Carbidopa/Levodopa (Sinemet) 1 tab PO 0800,1400,2000 [facility] Last Admin: 03/28/19 21:33 Dose: 1 tab Polyethylene Glycol (Miralax) 17 gm PO BID [facility] Last Admin: 03/28/19 17:31 Dose: Not Given Quetiapine Fumarate (Seroquel) 50 mg PO HS [facility] Last Admin: 03/28/19 21:33 Dose: 50 mg Quetiapine Fumarate (Seroquel) 25 mg PO DAILY [facility]; Protocol Last Admin: 03/28/19 09:54 Dose: 25 mg Tamsulosin HCl (Flomax) 0.4 mg PO 1830 [facility] Last Admin: 03/28/19 17:30 Dose: 0.4 mg - Labs Labs: 03/27/19 07:00 03/27/19 07:00 Attending/Attestation - Attestation I have personally seen and examined this patient.: Yes I have fully participated in the care of the patient.: Yes I have reviewed all pertinent clinical information, including history, physical exam and plan: Yes Notes (Text): This patient was seen and evaluated along with the GI fellow. Is an addendum to the progress note dictated by the GI fellow. Patient's family was at bedside. They they are reluctant about him having colonoscopy. Patient is also reluctant. However they want CAT scan to be done to further evaluate the cecal abnormality. I did explain to him that he had a massive fecal impaction could not be clear only with his 2 L of GoLYTELY. Patient needs another 2 L of GoLYTELY to clean them out and do a repeat the CT scan that may give some answer. However I did explain to them that limitations of colonoscopy in evaluating the colonic lesion. They fully understood but they elected for him to have a colonoscopy but they are agreeable for the repeat CT only. Patient will be scheduled for repeat CT with oral contrast to further evaluate after the bowel clearance 03/28/19 22:00
--- NOTE | 2019-03-28 15:25 | PN ---
DATE: 03/28/2019 SUBJECTIVE: The patient is an 78-year-old. Seen and examined. Seems to be much more awake, alert, and communicative. He has fine tremor in upper extremities. He is eating and tolerating. GI is also following the patient. According to nurse, he had two pasty bowel movements overnight. PHYSICAL EXAMINATION: VITAL SIGNS: The patient is afebrile. Pulse 76, respirations 20, blood pressure 140/87. LUNGS: Bilateral good airflow. No rhonchi or crackle. HEART: S1, S2 audible. ABDOMEN: Soft, nontender. No rebound. No guarding. NEUROLOGIC: The patient is awake and alert. Able to communicate. ASSESSMENT: 1. Status post urinary retention. 2. Headache, status post multiple falls, negative for subdural hematoma. 3. Constipation and currently having loose bowel movement. 4. Deconditioning, difficulty walking. PLAN: We will advance his diet. We will give regular diet, soft. Continue laxative. The patient and his family do not want to have colonoscopy done. They rather want to have repeat CT of the abdomen done. I will discuss with Dr. Burgos. The patient needs to get this evaluation and if accepted can be transferred to [facility]. Nisha Johnson MD
[2019-03-28] MEDS ORDERED: NuLYTELY (NACL/NAHCO3/KCL/PEG) 4L PO ONE (15:44)
[2019-03-29] MEDS: POLYETHYLENE GLYCOL 3350 17 GM/Dose PACKET PO SCH ×2 (10:31→17:31)
--- NOTE | 2019-03-29 11:20 | CP.PCM.PN ---
<Lisa Naik - Last Filed: 03/29/19 11:20> Subjective - Date & Time of Evaluation Date of Evaluation: 03/29/19 Time of Evaluation: 10:00 - Subjective Subjective: GI Fellow PGY5 Progress Note Pt seen and evaluated at bedside, pt confused, did not finish all of bowel prep, multiple BM. ROS: A 12pt ROS was negative except as above Objective - Vital Signs/Intake and Output Vital Signs (last 24 hours): Temp Pulse Resp BP Pulse Ox 98.1 F 86 20 136/81 95 03/29/19 08:43 03/29/19 08:43 03/29/19 08:43 03/29/19 08:43 03/29/19 08:43 - Medications Medications: Current Medications Acetaminophen (Tylenol 325mg Tab) 650 mg PO Q6H PRN PRN Reason: Fever >100.4 F Amantadine HCl (Amantadine 100 Mg Cap) 100 mg PO DAILY [facility] Last Admin: 03/29/19 10:31 Dose: 100 mg Carbidopa/Levodopa (Sinemet) 1 tab PO 0800,1400,2000 [facility] Last Admin: 03/29/19 10:31 Dose: 1 tab Polyethylene Glycol (Miralax) 17 gm PO BID [facility] Last Admin: 03/29/19 10:31 Dose: 17 gm Quetiapine Fumarate (Seroquel) 50 mg PO HS [facility] Last Admin: 03/28/19 21:33 Dose: 50 mg Quetiapine Fumarate (Seroquel) 25 mg PO DAILY [facility]; Protocol Last Admin: 03/29/19 10:31 Dose: 25 mg Tamsulosin HCl (Flomax) 0.4 mg PO 1830 [facility] Last Admin: 03/28/19 17:30 Dose: 0.4 mg - Labs Labs: 03/27/19 07:00 03/27/19 07:00 - Constitutional Appears: Non-toxic, No Acute Distress - Head Exam Head Exam: ATRAUMATIC, NORMAL INSPECTION, NORMOCEPHALIC - Eye Exam Eye Exam: EOMI, Normal appearance - ENT Exam ENT Exam: Mucous Membranes Moist, Normal Exam - Respiratory Exam Respiratory Exam: Clear to Ausculation Bilateral, NORMAL BREATHING PATTERN - Cardiovascular Exam Cardiovascular Exam: REGULAR RHYTHM - GI/Abdominal Exam GI & Abdominal Exam: Soft, Normal Bowel Sounds - Rectal Exam Rectal Exam: Deferred - Extremities Exam Extremities Exam: Full ROM, Normal Inspection - Neurological Exam Neurological Exam: Alert, Awake, Oriented x3 - Psychiatric Exam Psychiatric exam: Normal Affect, Normal Mood - Skin Skin Exam: Dry, Intact, Normal Color, Warm Assessment and Plan - Assessment and Plan (Free Text) Assessment: Patient is an 78yo male with PMHx significant for CAD s/p PCIx3, AAA s/p repair, Parkinson's disease, chronic constipation, urinary retention who presented to the hospital with abdominal pain and constipation -Chronic constipation with fecal impaction -Abnormal CT imaging of the cecum -CAD/AAA with intervention previously -Parkinson's disease Plan: -Patient did not tolerate much of the golyetely -Continue bowel regimen, avoid constipation -Will continue to monitor closely and encourage ongoing laxative therapy -Pt refusing colonoscopy until after CT -CT po contrast today -Liquid diet advance as tolerated -Will continue to follow closely <Carlton Burgos V - Last Filed: 03/29/19 19:15> Objective - Vital Signs/Intake and Output Vital Signs (last 24 hours): Temp Pulse Resp BP Pulse Ox 98.7 F 74 18 112/74 95 03/29/19 14:00 03/29/19 14:00 03/29/19 14:00 03/29/19 14:00 03/29/19 14:00 Intake and Output: 03/29/19 03/30/19 18:59 06:59 Intake Total 1380 Output Total 300 Balance 1080 - Medications Medications: Current Medications Acetaminophen (Tylenol 325mg Tab) 650 mg PO Q6H PRN PRN Reason: Fever >100.4 F Amantadine HCl (Amantadine 100 Mg Cap) 100 mg PO DAILY [facility] Last Admin: 03/29/19 10:31 Dose: 100 mg Carbidopa/Levodopa (Sinemet) 1 tab PO 0800,1400,2000 [facility] Last Admin: 03/29/19 13:30 Dose: 1 tab Polyethylene Glycol (Miralax) 17 gm PO BID [facility] Last Admin: 03/29/19 17:31 Dose: 17 gm Quetiapine Fumarate (Seroquel) 50 mg PO HS [facility] Last Admin: 03/28/19 21:33 Dose: 50 mg Quetiapine Fumarate (Seroquel) 25 mg PO DAILY [facility]; Protocol Last Admin: 03/29/19 10:31 Dose: 25 mg Tamsulosin HCl (Flomax) 0.4 mg PO 1830 [facility] Last Admin: 03/29/19 17:31 Dose: 0.4 mg - Labs Labs: 03/27/19 07:00 03/27/19 07:00 Attending/Attestation - Attestation I have personally seen and examined this patient.: Yes I have fully participated in the care of the patient.: Yes I have reviewed all pertinent clinical information, including history, physical exam and plan: Yes Notes (Text): This patient was seen and evaluated earlier. Is an addendum to the GI progress note dictated by the fellow. Patient was drinking GoLYTELY at the time of evaluation. Family were at bedside. Abnormal CAT scan rule out cecal lesion. Significant constipation with fecal impaction status post manual disimpaction. Patient did drink 2 L of GoLYTELY yesterday, follow-up of the repeat CAT scan. On clear liquid diet. Consider advancing the diet after reviewing the CT. Family is electing for any endoscopy or colonoscopy evaluation now. Discussed with Dr. Johnson earlier today 03/29/19 19:14
--- NOTE | 2019-03-29 16:38 | CT ---
Date of service: 03/29/2019 PROCEDURE: CT Abdomen and Pelvis with contrast HISTORY: constipation, abdominal pain COMPARISON: 03/25/2019. CT abdomen and pelvis. TECHNIQUE: Intravenous contrast dose: 03/25/2019. Radiation dose: Total exam DLP = 433.91 mGy-cm. This CT exam was performed using one or more of the following dose reduction techniques: Automated exposure control, adjustment of the mA and/or kV according to patient size, and/or use of iterative reconstruction technique. FINDINGS: LOWER THORAX: Unremarkable. LIVER: Unremarkable. No gross lesion or ductal dilatation. GALLBLADDER AND BILE DUCTS: Status post cholecystectomy. No abnormality is seen in the gallbladder fossa. PANCREAS: Unremarkable. No gross lesion or ductal dilatation. SPLEEN: Unremarkable. ADRENALS: Unremarkable. No mass. KIDNEYS AND URETERS: Unremarkable. No hydronephrosis. No solid mass. Stable bilateral renal cysts. VASCULATURE: Stable appearance of aorto bi-iliac stent graft. Interposed between the wall of the graft and the [place] anterior wall of the abdominal aorta is residual contrast. The significance of this is uncertain. There is no evidence of acute dissection or other significant finding. BOWEL: Under filling of the stomach extension weights dependent gastric mucosal wall thickening. Similar findings identified previously. Diverticulosis without an acute inflammatory component or other associated pathologic process. There is underfilling of the transverse colon accentuating thickening of the wall. Clinically is there history of or findings to suggest acute colitis? Mild thickening of the wall of small bowel. No evidence of mechanical obstruction. APPENDIX: No abnormalities to suggest acute appendicitis. No right lower quadrant inflammatory processes identified. PERITONEUM: Unremarkable. No free fluid. No free air. LYMPH NODES: Unremarkable. No enlarged lymph nodes. BLADDER: Satisfactory position of Verduzco catheter in a decompressed urinary bladder. REPRODUCTIVE: Unremarkable. BONES: No acute fracture. Stable postoperative changes lumbar spine. OTHER FINDINGS: None. IMPRESSION: Findings suggestive of mild enteritis. Stable findings with respect to the wall of the stomach likely underfilling rather than gastritis. Thickening of the wall of a short segment of the transverse colon under filling of the mid and distal transverse colon. Stable appearance of aorto bi-iliac stent graft. Additional benign and/or incidental findings described above.
--- NOTE | 2019-03-29 23:41 | PN ---
DATE: 03/29/2019 SUBJECTIVE: The patient is 78-year-old, seen and examined, seems to be much more alert. No abdominal pain, had bowel movement yesterday. On clear liquid diet. PHYSICAL EXAMINATION: VITAL SIGNS: He is afebrile, pulse 74, respirations 18, and blood pressure 112/74. LUNGS: Bilateral fair airflow. No rhonchi or crackles. HEART: S1 and S2 audible. ABDOMEN: Soft, nontender. No rebound, no guarding. NEUROLOGIC: He is awake and alert, able to communicate. LABORATORY DATA: He has CT scan done, repeated today that suggests mild enteritis with thickening of the wall, short segment of transverse colon. ASSESSMENT: 1. Status post constipation. 2. History of Parkinson's disease. 3. Coronary artery disease, status post angioplasty. 4. History of aortic aneurysm repair. PLAN: I spoke to Dr. Burgos. He will review the CT scan and will determine if he needs colonoscopy since the patient and his family are resisting colonoscopy. We will talk to Dr. Burgos and make disposition plan. If there is no plan for colonoscopy in the morning, the patient's diet can be advanced and he will be transferred [facility]. Nisha Johnson MD
--- NOTE | 2019-03-30 08:19 | PN ---
DATE: 03/27/2019 SUBJECTIVE: The patient is 78 years old. Seen and examined. Seemed to be more alert. Complained of headache. Had small bowel movement. Still has some abdominal discomfort. Family is at the bedside, feeding him . No significant abdominal pain. PHYSICAL EXAMINATION: VITAL SIGNS: He is afebrile, pulse 65, respirations 20, and blood pressure 137/87. LUNGS: Bilateral fair airflow. No rhonchi or crackles. HEART: S1 and S2 audible. ABDOMEN: Soft and nontender. No rebound. No guarding. NEUROLOGIC: The patient is awake and alert, able to communicate. LABORATORY DATA: WBC is 9.6, hemoglobin 12, hematocrit 38, and platelets 186. Chemistry: Sodium 142, potassium 4.6, chloride 106, CO2 of 29, BUN 26, creatinine 1.2, and blood sugar of 88. ASSESSMENT: 1. Status post urinary retention. 2. Constipation. 3. Parkinson's disease. 4. Complaint of headache. He states he had multiple falls at home. PLAN: I will get CT scan of the brain to rule out subdural hematoma. Continue laxatives. Request for physical therapy and TCU evaluation. Nisha Johnson MD
[2019-03-30 08:51] VITALS: RESP 20
[2019-03-30] MEDS: POLYETHYLENE GLYCOL 3350 17 GM/Dose PACKET PO SCH ×2 (10:08→17:42)
--- NOTE | 2019-03-30 12:28 | CP.PCM.PN ---
<InesgiovanniJoseph - Last Filed: 03/30/19 18:23> Subjective - Date & Time of Evaluation Date of Evaluation: 03/30/19 Time of Evaluation: 08:00 - Subjective Subjective: PGY6 GI Fellow Progress Note Patient seen and examined bedside this morning. Patient's son at bedside during exam. The patient denies any complaints at this time except for hunger and eagerness to advance diet. Denies any abdominal pain or bloating at this time. States having more regular bowel movements. 12 system ROS performed and negative except where stated Objective - Vital Signs/Intake and Output Vital Signs (last 24 hours): Temp Pulse Resp BP Pulse Ox 98.8 F 89 20 121/74 95 03/30/19 06:00 03/30/19 06:00 03/30/19 06:00 03/30/19 06:00 03/30/19 06:00 - Medications Medications: Current Medications Acetaminophen (Tylenol 325mg Tab) 650 mg PO Q6H PRN PRN Reason: Fever >100.4 F Last Admin: 03/29/19 19:48 Dose: 650 mg Amantadine HCl (Amantadine 100 Mg Cap) 100 mg PO DAILY [facility] Last Admin: 03/30/19 10:09 Dose: 100 mg Carbidopa/Levodopa (Sinemet) 1 tab PO 0800,1400,2000 [facility] Last Admin: 03/30/19 08:29 Dose: 1 tab Polyethylene Glycol (Miralax) 17 gm PO BID [facility] Last Admin: 03/30/19 10:08 Dose: 17 gm Quetiapine Fumarate (Seroquel) 50 mg PO HS [facility] Last Admin: 03/29/19 21:14 Dose: 50 mg Quetiapine Fumarate (Seroquel) 25 mg PO DAILY [facility]; Protocol Last Admin: 03/30/19 10:09 Dose: 25 mg Tamsulosin HCl (Flomax) 0.4 mg PO 1830 [facility] Last Admin: 03/29/19 17:31 Dose: 0.4 mg - Labs Labs: 03/27/19 07:00 03/27/19 07:00 - Constitutional Appears: Non-toxic, No Acute Distress - Eye Exam Eye Exam: EOMI, PERRL - ENT Exam ENT Exam: Mucous Membranes Moist - Respiratory Exam Respiratory Exam: Clear to Ausculation Bilateral. absent: Rales, Rhonchi, Wheezes - Cardiovascular Exam Cardiovascular Exam: RRR, +S1, +S2 - GI/Abdominal Exam GI & Abdominal Exam: Soft, Normal Bowel Sounds. absent: Distended, Firm, Guarding, Rigid, Tenderness, Organomegaly - Extremities Exam Extremities Exam: absent: Pedal Edema Additional comments: rigidity noted - Neurological Exam Neurological Exam: Alert, Awake, Oriented x3 - Psychiatric Exam Psychiatric exam: Normal Affect, Normal Mood - Skin Skin Exam: Dry, Normal Color Assessment and Plan - Assessment and Plan (Free Text) Assessment: Patient is an 78yo male with PMHx significant for CAD s/p PCIx3, AAA s/p repair, Parkinson's disease, chronic constipation, urinary retention who presented to the hospital with abdominal pain and constipation -Chronic constipation with fecal impaction -CAD/AAA with intervention previously -Parkinson's disease Plan: -Repeat CT imaging does not identify the cecal lesion previously identified -Explained findings to patient and son at bedside; while we cannot confirm with 100% certainty that there is not a lesion in the cecum, it is not present on imaging at this tme and may have been related to constipation and fecal burden which has resolved -Colonoscopy offered but patient/family would prefer to defer evaluation at this time -Expressed need for ongoing laxative therapy with Miralax 17g PO BID titrated to less than 2BM/day -If symptoms of constipation persist, encourage colonoscopy as well as evaluation for therapy such as Linzess/Amitiza -Outpatient follow up encouraged <Carlton Burgos V - Last Filed: 03/30/19 22:27> Objective - Vital Signs/Intake and Output Vital Signs (last 24 hours): Temp Pulse Resp BP Pulse Ox 98.3 F 79 20 124/77 97 03/30/19 15:38 03/30/19 15:38 03/30/19 15:38 03/30/19 15:38 03/30/19 15:38 - Labs Labs: 03/27/19 07:00 03/27/19 07:00 Attending/Attestation - Attestation I have personally seen and examined this patient.: Yes I have fully participated in the care of the patient.: Yes I have reviewed all pertinent clinical information, including history, physical exam and plan: Yes Notes (Text): This is an addendum to the GI progress report dictated by the fellow. The patient was evaluated along with the fellow earlier today. CT scan was reviewed. No obvious lesion of the cecum. Colonoscopy was offered family does not want to pursue now. Advance the diet Patient would require long-term stool softeners or laxatives on a regular basis 03/30/19 22:25
[2019-03-30 15:39] VITALS: BP 124/77; PULSE 79; TEMP 98.3; O2SAT 97
--- NOTE | 2019-03-30 17:18 | PN ---
DATE: 03/30/2019 SUBJECTIVE: The patient is 78-year-old, seen and examined. Somewhat confused today. Still on liquid diet. CT scan was repeated that suggested mild enteritis, stomach wall thickening, thickening of the wall of the short segment of transverse colon and transverse colon. PHYSICAL EXAMINATION: GENERAL: The patient is awake, alert and able to communicate. VITAL SIGNS: He is afebrile. Pulse 89, respiration 20 and blood pressure 121/74. LUNGS: Bilateral fair airflow. No rhonchi or crackle. HEART: S1 and S2, audible. ABDOMEN: Soft and nontender. No rebound. No guarding. NEUROLOGIC: He is awake, alert and able to communicate. ASSESSMENT: 1. Status post constipation. 2. Questionable mass. 3. Parkinson's disease. PLAN: I spoke to Dr. Burgos. He will talk to the family and finalize. If they agree for colonoscopy, he will proceed for that otherwise, he will be transferred to [facility]. Nisha Johnson MD
== END 2019-03-30 19:52 | DRG 390 ==
LOC: ED 16:44 → ERH 20:36 → 5RSO 23:13 → OBSVTOIN 03-27 13:20
PROVIDERS: ADMIT Internal Medicine; ATTEND Internal Medicine
PROC: 0T9B70Z Drainage of Bladder with Drainage Device, Via Natural or Artificial Opening (ICD-10-PCS; principal; 2019-03-25)
DX: K56.41 Fecal impaction (principal); I11.0 Hypertensive heart disease with heart failure; I50.9 Heart failure, unspecified; N40.1 Benign prostatic hyperplasia with lower urinary tract symptoms; R33.8 Other retention of urine; G20 Parkinson's disease; I71.4 Abdominal aortic aneurysm, without rupture; R26.2 Difficulty in walking, not elsewhere classified; I25.10 Atherosclerotic heart disease of native coronary artery without angina pectoris; K21.9 Gastro-esophageal reflux disease without esophagitis; R51 Headache; R29.6 Repeated falls; Z87.891 Personal history of nicotine dependence; Z98.61 Coronary angioplasty status; Z88.5 Allergy status to narcotic agent

== ENCOUNTER 2019-03-30 19:55 | Inpatient (IN) | payer OTHER, BC, MEDICARE ==
[2019-03-30 19:59] VITALS: BMI 22.4
[2019-03-31] MEDS ORDERED: Pneumococcal 23-Valent Vaccine IM ONE (00:12)
[2019-03-31] MEDS: Carbidopa/Levodopa 25/100 CR PO SCH ×2 (08:53→14:42)
[2019-03-31] MEDS: Benzocaine/Menthol (Cepacol) Lozenge MT PRN ×2 (08:53→22:24)
[2019-03-31] MEDS: POLYETHYLENE GLYCOL 3350 17 GM/Dose PACKET PO SCH ×2 (10:13→18:16)
--- NOTE | 2019-03-31 16:06 | CON ---
DATE: 03/31/2019 CONSULTATION NOTE HISTORY OF PRESENT ILLNESS: The patient is an 78-year-old male with a reported history of Parkinson's disease. The patient was admitted on the medical side for urinary retention and constipation. The patient has history of Parkinson's disease and hallucinations related to Parkinson's medications. This telegraphic typewriter installer is involved with the patient because of that reason. The patient was seen and examined today. Discussed with the nursing staff and notes were reviewed. Based on previous report, the patient was seen by Dr. Choudhary on 10/23/2018. The patient was on Seroquel back then, 25 mg in the morning time, 50 mg at the nighttime. The patient was also on levodopa and carbidopa. The patient also was seen by Dr. Chambers and was referred for deep brain stimulation as well as medication adjustment was done. The patient was seen and examined today. The patient presented to be alert, very pleasant. The patient reported that he feels okay. The patient reported that he started to have visual hallucinations. The patient is seeing a gigantic female with hutchins hair and that it was hairy and it was a scary visual hallucination. The patient reported that he used to follow up with Dr. Eisenberg for his Parkinson's; right now, he is going to a [facility] for his Parkinson's disease. The patient reported that he has power of real estate attorney, his and his son, who are helping him to make medical decisions. The patient denied being depressed, denied thoughts of harming himself or others, denied intent or plan. The patient also denied any feeling of hopelessness or helplessness. This telegraphic typewriter installer educated the patient about options available, deep brain stimulation as well as ECT program. The patient said "forget about it" and the patient was not interested to have any ECT treatment in the near future. This telegraphic typewriter installer will provide information about ECT treatment for the patient and probably will discuss that option with the family, but the patient himself seems to be not interested. Vital signs were reviewed. Temperature 97.6, pulse 65, blood pressure 166/94, respirations 26, and oxygen saturation is 97. MEDICATIONS: Medications were reviewed. The patient is on Tylenol, amantadine, Cepacol, Sinemet, MiraLax, Seroquel 50 mg at the nighttime, 25 mg daily and Flomax. LABORATORY DATA: Labs were reviewed. Most recent was from 03/27/2019. MENTAL STATUS EXAMINATION: The patient presented to be sleepy, easily arousable. Mood described as okay. Affect was flat. Thought process was coherent and goal-directed. Thought content: The patient describes visual hallucinations. The patient is seeing a gigantic female with hutchins hair and the patient said that these hallucinations appear to be scary. The patient adamantly denied thoughts of harming himself or others, denied intent or plan. Insight and judgment improving. Impulses are well-controlled. IMPRESSION: Rule out psychosis due to general medical condition, rule out Lewy body dementia, rule out psychosis due to medication, levodopa and carbidopa could give psychotic symptoms. PLAN: Treatment options discussed. The patient was seen by Medical Team/Neurology Team. The patient was educated about options about deep brain stimulation as well as electroconvulsive therapy, but the patient expressed no interest. We will follow up and advise accordingly. Family should be involved. Should you have any questions, give me a call back. Thank you. Debra Freed MD
--- NOTE | 2019-03-31 23:04 | PN ---
DATE: 03/31/2019 SUBJECTIVE: Patient is 78-year-old, who came to emergency room because of urinary retention and not having bowel movement for 5 days. He was given oral laxatives. There was a questionable mass in the cecum. Dr. Burgos reached out to the family, wanted to do colonoscopy, but family refused, they just wanted to treat him conservatively. So, he was transferred to TCU for rehab and close monitoring. PAST MEDICAL HISTORY: Significant for: 1. Parkinson's disease. 2. Hallucination probably secondary to Parkinson's medications. 3. History of recurrent urinary retention. 4. History of hypertension. 5. Postural hypertension. 6. History of AAA repair. ALLERGIES: HE IS ALLERGIC TO CODEINE AND OMEPRAZOLE. MEDICATIONS AT HOME: He is on amantadine. He is on Flomax 0.4 daily. He is on Seroquel 25 at bedtime and 50 mg at bedtime. SOCIAL HISTORY: He is and lives with his . He used to smoke two packs per day for 50 years, quit almost 3 years ago. PHYSICAL EXAMINATION GENERAL: He is awake and alert able to communicate, has tremor in the upper extremity, difficulty walking. VITAL SIGNS: He is afebrile. Pulse 65, respirations 20, and blood pressure 156/94. LUNGS: Bilateral fair airflow. No rhonchi or crackle. HEART: S1 and S2 audible. ABDOMEN: Soft. Verduzco is in place, draining saad colored urine. No hematuria. ASSESSMENT: 1. Status post fecal retention and constipation. 2. Urinary retention. 3. Parkinson's disease. 4. Questionable fecal mass. PLAN: We will continue patient on amantadine and Flomax. He is on laxative and we will continue that. Continue his Parkinson's medications. I spoke to Dr. Richardson, she is recommending ECT that will help for hallucinations to help him for depression. We will discuss with the family member and make disposition plan. Nisha Johnson MD
[2019-04-01] MEDS: Carbidopa/Levodopa 25/100 CR PO SCH ×3 (08:09→20:55)
[2019-04-01] MEDS: POLYETHYLENE GLYCOL 3350 17 GM/Dose PACKET PO SCH ×2 (11:01→17:44)
[2019-04-01] MEDS: Benzocaine/Menthol (Cepacol) Lozenge MT PRN (13:58)
--- NOTE | 2019-04-01 21:19 | PN ---
DATE: 04/01/2019 SUBJECTIVE: The patient was seen today. The patient presented much better. The patient remembers this clinical writer, but does not remember her name. The patient reported that he slept fine. The patient denied feeling of hopelessness and helplessness. Denied thoughts of harming himself. The patient reported hallucinations last time bothered him was about a week ago. The patient does not exhibit any aggression or agitation. PHYSICAL EXAMINATION: VITAL SIGNS: Reviewed. Temperature is 97.6, pulse 65, blood pressure is 156/94, and respirations 20. MEDICATIONS Reviewed. The patient is on Tylenol, amantadine, Cepacol, Sinemet, MiraLax, Seroquel 50 mg at the nighttime and 25 mg daily, and Flomax. LABORATORY DATA: Labs reviewed. MENTAL STATUS EXAMINATION: The patient presented to be alert and oriented, pleasant, and cooperative. Fair eye contact. Mood described as okay. Affect was more reactive and mood congruent. Thought process is coherent and goal-directed. Thought content, the patient denied visual, auditory or tactile hallucinations at the moment; however, the interview last time was about a week. Insight and judgment seems to be improving. Impulses are well controlled. The patient adamantly denied thoughts of harming himself or others, denied intent or plan. IMPRESSION Rule out Lewy body dementia, rule out substance-induced or medication-induced psychosis. PLAN We will continue Seroquel. We will continue current management and medication. This clinical writer provided the patient with information about ECT. The patient does not want to have ECT treatment. The patient has good support at home. The patient was provided about ECT pamphlet, but the patient expressed no interest to have ECT. The patient does not want this clinical writer to give a call to his family. Meanwhile, discussed with primary care physician, Dr. Johnson. The patient posed no imminent danger to self or other, but might benefit from ECT treatment. At this point, this clinical writer will sign off. The patient is aware of the options about deep brain stimulation as well as ECT treatment. Should you have any questions, give me a call back. Thank you very much. We will sign off. Debra Freed MD
--- NOTE | 2019-04-02 00:13 | PN ---
DATE: 04/01/2019 SUBJECTIVE: Patient is an 78-year-old, seen and examined, lying in bed, seems to be comfortable. Denies any nausea or vomiting. No diarrhea. PHYSICAL EXAMINATION VITAL SIGNS: He is afebrile, pulse 67, respirations 20, and blood pressure 143/81. LUNGS: Bilateral fair airflow. No rhonchi or crackle. HEART: S1 and S2 audible. ABDOMEN: Soft, nontender. No rebound, no guarding. NEUROLOGIC: He is awake and alert, able to communicate. Son is by the bedside. ASSESSMENT: 1. Status post fecal retention, status post urinary retention. 2. Parkinson's disease. 3. History of hypertension. 4. History of aortic aneurysm repair. PLAN: The patient's MAR reviewed. We will discontinue his Verduzco's catheter. Continue him on Flomax. Watch for retention. Encourage physical therapy. We will follow the patient in the a.m. Nisha Johnson MD
[2019-04-02] MEDS: POLYETHYLENE GLYCOL 3350 17 GM/Dose PACKET PO SCH ×2 (09:42→17:46)
[2019-04-02] MEDS: Carbidopa/Levodopa 25/100 CR PO SCH ×2 (09:43→17:47)
--- NOTE | 2019-04-02 12:23 | CP.PCM.PCO ---
Physician Communication Note - Physician Communication Note Physician Communication Note: no acute issues, pt will be f/u tomorrow
--- NOTE | 2019-04-02 23:31 | PN ---
DATE: 04/02/2019 SUBJECTIVE: The patient is an 78-year-old, seen and examined, sitting in chair, seems to be comfortable. Eating and tolerating. Had small bowel movement since yesterday. No urinary retention. Verduzco has removed yesterday. PHYSICAL EXAMINATION VITAL SIGNS: He is afebrile. Pulse 67, respirations 20, blood pressure 118/81. LUNGS: Bilateral fair airflow. No rhonchi or crackle. HEART: S1 and S2 audible. ABDOMEN: Soft and nontender. No rebound. No guarding. NEUROLOGICAL: The patient is awake and alert, able to communicate. Has resting tremor, has difficulty walking. ASSESSMENT: 1. Status post urinary retention, status post fecal retention. 2. Parkinson's disease. 3. History of abdominal aortic aneurysm repair. 4. Electrolyte imbalance. PLAN: We will continue the patient on current medications and encourage ambulation and gait training. Nisha Johnson MD
[2019-04-03] MEDS: Carbidopa/Levodopa 25/100 CR PO SCH ×4 (08:29→21:21)
[2019-04-03] MEDS: POLYETHYLENE GLYCOL 3350 17 GM/Dose PACKET PO SCH (10:02)
--- NOTE | 2019-04-03 13:50 | PN ---
DATE: 04/03/2019 SUBJECTIVE: The patient was seen and examined today. The patient presented well. The patient is not in any acute distress. The patient was not observed hallucinating or acting bizarre. The patient presented very well. The patient reported that he had decent good night sleep. Reported no signs of depression, hallucinations or anxiety. VITAL SIGNS: Stable. MENTAL STATUS EXAM The patient presented with good personal hygiene. Fair eye contact. Speech was under productive, low volume. Mood described as okay. Affect was constricted, but minimally reactive and mood congruent. Thought process seems to be coherent and goal-directed. Thought content, the patient denied visual, auditory tactile hallucinations. Denied paranoid ideation. Last time, the patient had hallucinations was on Saturday. Insight and judgment seemed to be improving. Impulses are well controlled. LABORATORY DATA: Labs reviewed. MEDICATIONS: Reviewed. The patient is on Seroquel 50 mg at the nighttime and 25 mg daily and the patient tolerated those medications well. IMPRESSION: As per history of Parkinson's rule out Lewy body disease, rule out medication-induced psychosis, but right now the patient presented very well and all of the psychotic symptoms are under control. PLAN: Recommend same regimen. This financial underwriter educated the patient about ECT, pt expressed no interest in ECT. The patient also is aware about deep brain stimulation DBT. This financial underwriter will sign off because the patient posed no imminent danger to self or others. Should you have any questions, give me a call back. Reconsult as needed. Debra Freed MD MTDD
--- NOTE | 2019-04-03 14:06 | PN ---
DATE: 04/03/2019 SUBJECTIVE: The patient is 78 years old seen and examined, complains of diarrhea, had 6 bowel movements since morning. We will hold off his MiraLax, participating in therapy. No chest pain. No shortness of breath, otherwise doing well. PHYSICAL EXAMINATION: VITAL SIGNS: She is afebrile. Pulse 76, respirations 20, blood pressure 118/81. LUNGS: Bilateral fair airflow. No rhonchi or crackles. HEART: S1 and S2 audible. ABDOMEN: Soft and nontender. No rebound. No guarding. NEUROLOGIC: The patient is awake and alert, able to communicate. Has tremor in the upper extremity. ASSESSMENT: 1. Status post fecal impaction. 2. Status post urinary retention. 3. History of abdominal aortic aneurysm repair. 4. Parkinson's disease. PLAN: We will discontinue MiraLax, and we will give him . We will continue all other medications. Continue physical therapy. We will follow up the patient in a.m. Nisha Johnson MD
[2019-04-04] MEDS: Carbidopa/Levodopa 25/100 CR PO SCH ×3 (08:57→21:25)
--- NOTE | 2019-04-04 22:40 | PN ---
DATE: 04/04/2019 SUBJECTIVE: The patient is 78 years old. Seen and examined. Doing very well. Had two bowel movements since morning. Eating and tolerating, participating therapy well. PHYSICAL EXAMINATION: VITAL SIGNS: He is afebrile, pulse 80, respirations 16, blood pressure 100/71. LUNGS: Bilateral fair air flow. No rhonchi or crackle. HEART: S1 and S2 audible. ABDOMEN: Soft, nontender. No rebound. No guarding. NEUROLOGIC: The patient is awake and alert. Able to communicate. EXTREMITIES: Bilateral legs have no edema. LABORATORY EXAMINATION: There are no new labs available today. ASSESSMENT AND PLAN: 1. History of Parkinson's disease. 2. Status post fecal impaction. 3. Status post urine retention. 4. History of abdominal aortic aneurysm repair. PLAN: We will continue the patient on current medications. He is on Flomax. He is on Seroquel. He is on carbidopa/levodopa; continue that. We will follow up CBC and CMP on Saturday. Discharge plan on Saturday. Nisha Johnson MD
--- NOTE | 2019-04-04 23:37 | CP.PCM.PN ---
Subjective - Date & Time of Evaluation Date of Evaluation: 04/04/19 Time of Evaluation: 14:15 - Subjective Subjective: Tolerating diet no abdominal pain bowel movements okay Objective - Vital Signs/Intake and Output Vital Signs (last 24 hours): Temp Pulse Resp BP Pulse Ox 97.9 F 88 16 86/64 L 98 04/03/19 10:00 04/03/19 17:02 04/03/19 10:00 04/03/19 17:02 04/03/19 17:02 Intake and Output: 04/04/19 04/05/19 18:59 06:59 Intake Total 420 Output Total 250 Balance 170 - Medications Medications: Current Medications Acetaminophen (Tylenol 325mg Tab) 650 mg PO Q6H PRN; Protocol PRN Reason: Fever >100.4 F Last Admin: 04/01/19 07:35 Dose: 650 mg Amantadine HCl (Amantadine 100 Mg Cap) 100 mg PO DAILY [facility]; Protocol Last Admin: 04/04/19 11:03 Dose: 100 mg Benzocaine/Menthol (Cepacol Sore Throat) 1 live MT Q2H PRN PRN Reason: Sore Throat Last Admin: 04/01/19 13:58 Dose: 1 live Carbidopa/Levodopa (Sinemet Cr) 1 tab PO 0800,1400,2000 [facility]; Protocol Last Admin: 04/04/19 21:25 Dose: 1 tab Quetiapine Fumarate (Seroquel) 25 mg PO DAILY [facility]; Protocol Last Admin: 04/04/19 11:04 Dose: 25 mg Quetiapine Fumarate (Seroquel) 50 mg PO HS [facility] Last Admin: 04/04/19 21:25 Dose: 50 mg Tamsulosin HCl (Flomax) 0.4 mg PO 1830 [facility]; Protocol Last Admin: 04/04/19 17:44 Dose: 0.4 mg - Head Exam Head Exam: ATRAUMATIC, NORMAL INSPECTION, NORMOCEPHALIC - Eye Exam Eye Exam: PERRL. absent: Scleral icterus - ENT Exam ENT Exam: Mucous Membranes Moist - Neck Exam Neck Exam: Full ROM. absent: Lymphadenopathy - Respiratory Exam Respiratory Exam: NORMAL BREATHING PATTERN. absent: Accessory Muscle Use, Respiratory Distress - GI/Abdominal Exam GI & Abdominal Exam: Soft, Normal Bowel Sounds. absent: Tenderness, Mass - Neurological Exam Neurological Exam: Alert, Awake, Oriented x3 Assessment and Plan - Assessment and Plan (Free Text) Assessment: Patient is an 78yo male with PMHx significant for CAD s/p PCIx3, AAA s/p repair, Parkinson's disease, chronic constipation, urinary retention who presented to the hospital with abdominal pain and constipation -Chronic constipation with fecal impaction -CAD/AAA with intervention previously -Parkinson's disease Plan: -Repeat CT imaging does not identify the cecal lesion previously identified -Explained findings to patient and son at bedside; while we cannot confirm with 100% certainty that there is not a lesion in the cecum, it is not present on imaging at this tme and may have been related to constipation and fecal burden which has resolved -Colonoscopy offered but patient/family would prefer to defer evaluation at this time -Expressed need for ongoing laxative therapy with Miralax 17g PO BID titrated to less than 2BM/day -If symptoms of constipation persist, encourage colonoscopy as well as evaluation for therapy such as Linzess/Amitiza -Outpatient follow up encouraged Bowel movements okay No plan for a colonoscopy patient refused will sign off reconsult as needed Thank you very much Dr. Johnson for allowing us to participate in the care of the patient
--- NOTE | 2019-04-05 06:04 | CP.PCM.PCO ---
<Amandeep Jaimes - Last Filed: 04/05/19 05:56> Addendum Addendum: PGY1 Code Star Note Patient was found sitting on the toilet when code was called. Fall was not witnessed however, minimum blood was noted at the dorsum of the right wrist. He also mentioned that he had some pain at the right shoulder and that he hit his head. He was inspected thoroughly and no further bruising was noted at the extremities besides the right wrist lesion. He does have tremors of his right upper extremity due to his Parkinson's. Also, no bruising, lesions, or lacerations noted at the head. As per nursing staff, patient wanted some privacy going to the bathroom when this incident occurred. He did have dizziness associated with this episode. He mentioned that he has had multiple falls in the past with associated dizziness. Patient was transferred safely to bed. Vital signs currently stable with BP 96/61 and HR 75. Blood sugar noted to be 108. He is not on any blood thinners. Will order R-shoulder XR, R-humerus XR, and R-wrist XR stat. Also obtain CT Head w/o contrast stat. Coag studies also ordered stat. EKG ordered stat. Will monitor patient and relay to morning team. <Liliana Tierney - Last Filed: 04/05/19 06:20> Attending/Attestation - Attestation I have personally seen and examined this patient.: Yes I have fully participated in the care of the patient.: Yes I have reviewed all pertinent clinical information: Yes Notes (Text): 04/05/19 06:20 Patient was seen at bedside. Fell in the bathroom. Not sure if he passed out. Agree with medical coding auditor.
--- NOTE | 2019-04-05 07:36 | CT ---
Date of service: 04/05/2019 PROCEDURE: CT HEAD WITHOUT CONTRAST. HISTORY: code star COMPARISON: 03/27/2019 TECHNIQUE: Axial computed tomography images were obtained through the head/brain without intravenous contrast. Radiation dose: Total exam DLP = 1054.21 mGy-cm. This CT exam was performed using one or more of the following dose reduction techniques: Automated exposure control, adjustment of the mA and/or kV according to patient size, and/or use of iterative reconstruction technique. FINDINGS: HEMORRHAGE: No intracranial hemorrhage. BRAIN: There are moderate chronic microangiopathic changes. There is no mass, mass effect or abnormal extra-axial fluid collection. There is no territorial infarction. The midline sagittal structures are normal. VENTRICLES: There is mild age-related global parenchymal volume loss and proportionate enlargement of the ventricles and cortical sulci. CALVARIUM: There is no calvarial fracture or extracranial soft tissue swelling. PARANASAL SINUSES: Predominantly clear. MASTOID AIR CELLS: Predominantly clear. OTHER FINDINGS: None. IMPRESSION: No acute intracranial abnormality. Moderate chronic microangiopathic changes and mild age-related global loss. A preliminary report was provided by [employer].
[2019-04-05 07:41] LABS: INR 1.14; PARTIAL THROMBOPLASTIN TIME 33.9 Seconds (26.9-38.3); PROTHROMBIN TIME 12.9 SECONDS (9.4-12.5)
--- NOTE | 2019-04-05 08:13 | RAD ---
PROCEDURE: Radiographs of the right humerus. HISTORY: code star COMPARISON: None. TECHNIQUE: 2 views obtained. FINDINGS: BONES: Bone alignment is normal. There is no acute displaced fracture or bone destruction. There is diffuse bone demineralization. SOFT TISSUES: Normal. OTHER FINDINGS: None. IMPRESSION: No acute displaced fracture.
--- NOTE | 2019-04-05 08:13 | RAD ---
Date of service: 04/05/2019 PROCEDURE: Radiographs of the Right Shoulder HISTORY: code star COMPARISON: No prior. TECHNIQUE: 3 views obtained. FINDINGS: BONES: Bone alignment is normal. There is no acute displaced fracture or bone destruction. There is diffuse bone demineralization. JOINTS: Normal. Glenohumeral and acromioclavicular joints preserved. No osteoarthritis. SOFT TISSUES: Normal. OTHER FINDINGS: None. IMPRESSION: No acute displaced fracture or dislocation.
--- NOTE | 2019-04-05 08:16 | RAD ---
Date of service: 04/05/2019 PROCEDURE: Right Wrist Radiographs. HISTORY: code star COMPARISON: None. TECHNIQUE: 3 views obtained. FINDINGS: BONES: Bone alignment is normal. There is no acute displaced fracture or bone destruction. There is diffuse bone demineralization. JOINTS: Normal. No dislocation. SOFT TISSUES: Normal. OTHER FINDINGS: None. IMPRESSION: No acute displaced fracture or dislocation.
[2019-04-05] MEDS: Carbidopa/Levodopa 25/100 CR PO SCH ×3 (08:29→20:00)
--- NOTE | 2019-04-05 16:55 | PN ---
DATE: 04/05/2019 SUBJECTIVE: The patient has no complaints of any chest pain. No shortness of breath. No headaches. PHYSICAL EXAMINATION VITAL SIGNS: Temperature is 97.9, pulse of 88, blood pressure is 86/64, respirations are 16. GENERAL: The patient is lying in bed, flat, comfortable. HEENT: No oral lesion. Anicteric sclerae. Moist mucosa. NECK: No JVD, adenopathy, or thyromegaly. CARDIOVASCULAR: S1 and S2, regular. No murmurs, rubs, or gallops. LUNGS: Clear to auscultation bilaterally. No wheeze, rales, or rhonchi. ABDOMEN: Bowel sounds are positive, soft, nontender and nondistended. EXTREMITIES: No cyanosis, clubbing or edema. LABORATORY DATA: Right shoulder x-ray; no acute fracture. Right wrist x-ray; no fracture or dislocation. CT of the head done shows no acute intracranial abnormalities, there is moderate chronic microangiopathic changes, they are age related. Right humerus fracture, no acute fractures. ASSESSMENT: 1. Fall. 2. Parkinson's disease. 3. Constipation. 4. Urinary retention, resolved. 5. Benign prostatic hyperplasia. PLAN: The patient is currently on Flomax for constipation. He is going to continue with his Seroquel. He is on carbidopa and levodopa for his Parkinson's. He is on Tylenol for pain. The patient had a fall in the bathroom and the CAT scan of the head as well as x-rays have been unchanged. The patient is on a regular diet. Last fingerstick is 108 this morning. Buck Escamilla MD
[2019-04-06 07:28] LABS: BASO # 0.05 K/mm3 (0.0-2.0); BASO % 0.5 % (0.0-3.0); EOS # 0.2 (0.0-0.7); HEMOGLOBIN 12.2 g/dL (14.0-18.0); LYMPH # 1.7 (1.2-3.4); LYMPH % 16.3 % (22.0-35.0); MEAN CELL VOLUME 90.8 fl (80.0-105.0); MEAN CORPUSCULAR HEMOGLOBIN 27.9 pg (25.0-35.0); MEAN CORPUSCULAR HGB CONC 30.7 g/dl (31.0-37.0); MEAN PLATELET VOLUME 9.5 fl (7.0-11.0); MONO # 0.6 (0.1-0.6); MONO % 5.2 % (1.0-6.0); RBC 4.37 10^6/uL (3.5-6.1); RED CELL DISTRIBUTION WIDTH 14.9 % (11.5-14.5); WHITE BLOOD COUNT 10.6 10^3/uL (4.5-11.0)
[2019-04-06 08:00] LABS: ALB/GLOB RATIO 0.9 (1.1-1.8); ALBUMIN 3.5 g/dL (3.0-4.8); ALT/SGPT < 6 U/L (7-56); AST/SGOT 24 U/L (17-59); BLOOD UREA NITROGEN 32 mg/dL (7-21); GFR NON-AFRICAN AMERICAN 53
[2019-04-06] MEDS: Carbidopa/Levodopa 25/100 CR PO SCH ×3 (08:36→21:00)
[2019-04-06] MEDS: POLYETHYLENE GLYCOL 3350 17 GM/Dose PACKET PO SCH (14:59)
--- NOTE | 2019-04-06 17:53 | PN ---
DATE: 04/06/2019 SUBJECTIVE: The patient is an 78-year-old male, seen and examined, lying in bed. He has tremor in the upper extremities due to his progressive Parkinson's. He does not seem to be confused or disoriented, eating and tolerating. Complained of constipation today. PHYSICAL EXAMINATION: VITAL SIGNS: He is afebrile, pulse 85, respirations 14, blood pressure 109/75. LUNGS: Bilateral fair airflow. No rhonchi or crackle. HEART: S1, S2 audible. ABDOMEN: Soft, nontender. No rebound. No guarding. NEUROLOGIC: He is awake and alert, able to communicate. EXTREMITIES: Moves all extremities. Has difficulty walking and getting out of bed on his own. LABORATORY DATA: WBC is 10.6, hemoglobin 12, hematocrit 39.7, platelet of 249. PT 12.9, INR 1.14. Chemistry: Sodium 141, potassium 4.5, chloride 106, CO2 of 31, BUN 32, creatinine 1.3, blood sugar of 53. LFTs are within normal limits. ASSESSMENT: 1. Status post severe constipation and urinary retention. 2. Parkinson's disease. 3. History of abdominal aortic aneurysm repair. 4. Mild renal insufficiency. 5. Deconditioning and difficulty walking. PLAN: The patient complained of constipation, we will restart him on MiraLax. He was on twice a day, but he started to have loose bowel movement, so that was held. We will restart him. Continue physical therapy. We will follow up in the morning. Nisha Johnson MD
[2019-04-07] MEDS: Carbidopa/Levodopa 25/100 CR PO SCH ×2 (08:03→14:15)
[2019-04-07 12:04] VITALS: RESP 16; TEMP 97.4; O2SAT 97
[2019-04-07] MEDS: POLYETHYLENE GLYCOL 3350 17 GM/Dose PACKET PO SCH (12:17)
[2019-04-07 17:34] VITALS: BP 84/55; PULSE 82
--- NOTE | 2019-04-08 01:05 | DS ---
HISTORY OF PRESENT ILLNESS: The patient is an 78-year-old seen and examined, doing very well. He was admitted because of fecal retention and urinary retention, has Verduzco placed, started on Flomax. Has been on doing very well. Received physical therapy. Being discharged home with home PT. PHYSICAL EXAMINATION: GENERAL: He is awake and alert, able to communicate. VITAL SIGNS: He is afebrile. Pulse 90, respirations 16 and blood pressure 93/65. LUNGS: Bilateral fair airflow. No rhonchi or crackle. HEART: S1 and S2 audible. ABDOMEN: Soft, nontender. No rebound. No guarding. NEUROLOGIC: He is awake and alert, able to communicate. He has very significant upper extremity tremor and unstable gait. LABORATORY DATA: WBC 10.6, hemoglobin 12, hematocrit 39 and platelet 249. PT 12.9 and INR 1.14. Chemistry: Sodium 141, potassium 4.5, chloride 106, CO2 of 31, BUN 32, creatinine 1.3 and blood sugar of 96. ASSESSMENT: 1. Status post fecal retention. 2. Status post urinary retention. 3. Unstable gait. 4. Parkinson's disease. 5. History of aortic aneurysm repair in the past. PLAN: The patient is clinically stable, being discharged home today on Flomax. He will continue Seroquel. He is on amantadine and he is advised to buy MiraLax over the counter and take it consistently . Nisha Johnson MD
== END 2019-04-07 15:50 | disposition home or self-care (01) | DRG 93 ==
LOC: TRCU 19:55
PROVIDERS: ADMIT Internal Medicine; ATTEND Internal Medicine
PROC: F07Z9FZ Gait Training/Functional Ambulation Treatment using Assistive, Adaptive, Supportive or Protective Equipment (ICD-10-PCS; principal; 2019-03-31)
PROC: F08Z4FZ Home Management Treatment using Assistive, Adaptive, Supportive or Protective Equipment (ICD-10-PCS; 2019-03-31)
DX: R26.81 Unsteadiness on feet (principal); G20 Parkinson's disease; I25.10 Atherosclerotic heart disease of native coronary artery without angina pectoris; I10 Essential (primary) hypertension; N40.1 Benign prostatic hyperplasia with lower urinary tract symptoms; R33.8 Other retention of urine; N28.9 Disorder of kidney and ureter, unspecified; R29.6 Repeated falls; K59.09 Other constipation; Z86.79 Personal history of other diseases of the circulatory system; Z87.891 Personal history of nicotine dependence